=== PATIENT | male | born 1945 | race Caucasian/White ===

== ENCOUNTER → 2016-10-20 | Outpatient (CLI) | payer BC ==
[~2016-10-20] MED LIST: ACET-749 PO; ASPI-428 PO; ATOR-24 PO; BUPR-267 PO; CEPH500C2 PO; CLOP1TAB15 PO; CMD10 PO; FINA5TAB4 PO; FLM4 PO; GADAVIST IV PRN; GLC/500 PO; HYDR25TA4 PO; KFL/250 PO; MULTTAB58 PO; NIAC250C2; NTRC PO; NUTR-218 PO; SULF800T23 PO; WARF10TA4 PO
[2016-10-20 15:18] LABS: ISTAT CREATININE 1.1 mg/dl (0.6-1.3); ISTAT HEMOGLOBIN 13.9 g/dl (14.0-18.0); ISTAT IONIZED CALCIUM 1.22 mmol/l (1.12-1.32)
--- NOTE | 2016-10-21 15:33 | DIAGNOSTIC IMAGING REPORT ---
MRI OF THE RIGHT FOOT WITH AND WITHOUT CONTRAST CLINICAL HISTORY: Right first toe infection. Evaluate for osteomyelitis. COMPARISON STUDY: MRI of the right foot May 05, 2016. TECHNIQUE: 1.5 Alejandra magnet and dedicated coil, multiplanar, multiecho imaging of the right foot was performed pre and postcontrast ministration. Injection of 10.5 cc of Gadavist IV was uneventful. FINDINGS: The tarsometatarsal joints are intact. 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 A marker was placed on the skin at site of wound. There is edema and enhancement within the subcutaneous tissues of the right first toe. This suggests cellulitis. There is mild increased T2 signal within the distal phalanx of the right first toe which is slightly increased since MRI of May 05, 2016. However, T1 signal is preserved. There is no fluid collection to suggest an abscess. No fracture is identified. There is no mass or fluid collection within the right foot. IMPRESSION: 1. Mild increased T2 signal within the distal phalanx of the right first toe, slightly increased since MRI of May 05, 2016. However, marrow signal on the T1-weighted sequence is preserved and therefore, there is no convincing MR evidence of osteomyelitis. The findings could reflect osteitis. 2. Edema and enhancement of the subcutaneous tissues of the right first toe suggestive of cellulitis. No abscess. Electronically signed by: Tyrone Navarro M.D. 10/21/2016 3:31 PM Dictated Date/Time: 10/20/2016 4:33 PM
== END | disposition home or self-care (01) ==
LOC: C.MRI 14:18
PROVIDERS: ATTEND Emergency Medicine
DX: E11.621 Type 2 diabetes mellitus with foot ulcer (principal); L97.519 Non-pressure chronic ulcer of other part of right foot with unspecified severity; R93.8 Abnormal findings on diagnostic imaging of other specified body structures

== ENCOUNTER → 2016-10-25 | Outpatient (CLI) | payer BC ==
[~2016-10-25] MED LIST changes: -GADAVIST IV PRN
[2016-10-25 13:29] LABS: BASO % 0.2 %; BASO ABS # 0.01 K/uL (0-0.2); COMPLETE YES; EOS % 1.9 %; HEMATOCRIT 42.6 % (42-52); IG% 0.2 %; LYMPH % 23.6 %; LYMPH ABS # 1.24 K/uL (1.2-3.4); MEAN CELL VOLUME 92.4 fL (80-100); MEAN CORPUSCULAR HEMOGLOBIN 30.8 pg (25-34); MEAN CORPUSCULAR HGB CONC 33.3 g/dl (32-36); MEAN PLATELET VOLUME 10.5 fL (7.4-10.4); MONO % 4.8 %; NEUT % 69.3 %; PLATELET COUNT 150 K/uL (130-400); RED BLOOD COUNT 4.61 M/uL (4.7-6.1); WHITE BLOOD COUNT 5.25 K/uL (4.8-10.8)
[2016-10-25 13:47] LABS: ESTIMATED AVERAGE GLUCOSE 134 mg/dl; HA1C FLAG Normal (Normal)
[2016-10-25 14:58] LABS: BLOOD UREA NITROGEN 23 mg/dl (7-18); BUN/CREATININE RATIO 18.9 (10-20); CALCIUM 8.8 mg/dl (8.5-10.1); CARBON DIOXIDE 26 mmol/L (21-32); CHLORIDE 103 mmol/L (98-107); GLUCOSE 162 mg/dl (70-99); POTASSIUM 3.9 mmol/L (3.5-5.1); SODIUM 138 mmol/L (136-145)
--- NOTE | 2016-10-30 13:16 | CODING QUERY MEDICAL NECESSITY ---
SUPPORTING DIAGNOSIS NEEDED A supporting diagnosis is required for the test/procedure performed on this patient in order for us to be reimbursed by the patient's insurance. Please provide a supporting diagnosis for the following test/procedure listed below next to the test name along with your signature. *If there is no additional diagnosis for this patient that would support the following test/procedure please document that below next to the test/procedure. Test(s)/Procedure(s) that require a supporting diagnosis: DOS 10/25 * Vitamin D DIAGNOSIS: * Vitamin B12 DIAGNOSIS: Provider Signature: Date: Thank you Radha Foster Health Information Management Once completed, please kindly fax back to [phone] For questions please call [phone]
== END | disposition home or self-care (01) ==
LOC: C.LABBC 11:00
PROVIDERS: ATTEND Internal Medicine Geriatric Medicine
DX: R73.9 Hyperglycemia, unspecified (principal); I10 Essential (primary) hypertension; G47.30 Sleep apnea, unspecified; C44.41 Basal cell carcinoma of skin of scalp and neck; G62.9 Polyneuropathy, unspecified

== ENCOUNTER → 2017-02-26 | Outpatient (CLI) | payer BC ==
[~2017-02-26] MED LIST changes: -ASPI-428 PO; -CEPH500C2 PO; -CLOP1TAB15 PO; -KFL/250 PO; -SULF800T23 PO
--- NOTE | 2017-02-26 13:43 | DIAGNOSTIC IMAGING REPORT ---
CT SCAN OF THE CHEST WITHOUT IV CONTRAST CLINICAL HISTORY: Pulmonary nodule follow-up. COMPARISON STUDY: Chest CT dated 11/20/2011. PET/CT dated 04/28/2015. TECHNIQUE: CT scan of the thorax was performed from the thoracic inlet to the upper abdomen. Images are reviewed in the axial, sagittal, and coronal planes. IV contrast was not administered for this examination. A dose lowering technique was utilized adhering to the principles of ALARA. CT DOSE: 621.03 mGycm FINDINGS: Thyroid: Imaged portions of the thyroid gland are normal in size and attenuation. There is a 1.2 cm low-attenuation nodule in the left thyroid lobe. Thoracic aorta: There is mild atherosclerotic calcification of the thoracic aorta, which is normal in caliber and demonstrates standard 3-vessel arch anatomy. Heart: The heart is mildly enlarged and without pericardial effusion. The coronary arteries are calcified. The pulmonary trunk is normal in caliber. Lungs and pleural spaces: There are trace pleural effusions. There is no airspace consolidation identified typical for pneumonia. A 5 mm right lower lobe pulmonary nodule seen image #175 is unchanged from 11/20/2011 and is of doubtful significance. There is an enlarging pulmonary nodule at the medial left lung base which measures 1.6 x 1.4 cm as seen on image #240. This has significantly increased in size from 2012 when it measured up to 1.1 cm, and has also increased in size from 2015 and measured 1.3 cm. The trachea and central airways are clear. Mediastinum: There is no mediastinal lymphadenopathy. Mine: Not well assessed without IV contrast. Axillae: There is no axillary lymphadenopathy. Upper abdomen: There is a small hiatal hernia. The spleen is mildly enlarged measuring 13.5 cm in length. Scattered diverticula are noted in the partially imaged left colon. Skeletal structures: The skeletal structures are osteopenic. Mild degenerative change is seen throughout the thoracic spine. No lytic or blastic bony lesions are seen. IMPRESSION: 1. There is a 1.6 cm pulmonary nodule at the left lung base. This has progressively increased in size over serial examinations dating back to 2011 when it measured up to 1.1 cm. This was not demonstrably FDG avid by PET in 2014, and the appearance is concerning for a low-grade neoplasm such as carcinoid tumor. Surgical consultation is advised. 2. A 5 mm right lower lobe pulmonary nodule is unchanged dating back to 2011 and is of doubtful significance. 3. There are trace pleural effusions. No airspace consolidation is seen typical for pneumonia. 4. Mild cardiomegaly. 5. Mild splenomegaly. 6. There is a 1.2 cm low-attenuation nodule in the left thyroid lobe. Follow-up with a nonemergent thyroid ultrasound is recommended for further assessment. 7. Additional findings as above. Electronically signed by: Yosi Butcher M.D. 02/26/2017 1:42 PM Dictated Date/Time: 02/26/2017 1:32 PM
== END | disposition home or self-care (01) ==
LOC: C.CTS 12:43
PROVIDERS: ATTEND Internal Medicine Pulmonary Disease
DX: R91.1 Solitary pulmonary nodule (principal)

== ENCOUNTER → 2017-04-02 | Outpatient (CLI) | payer BC ==
[2017-04-02 17:14] LABS: BASO % 0.1 %; BASO ABS # 0.01 K/uL (0-0.2); COMPLETE YES; EOS % 0.6 %; HEMATOCRIT 40.8 % (42-52); IG% 0.1 %; LYMPH % 16.8 %; LYMPH ABS # 1.34 K/uL (1.2-3.4); MEAN CELL VOLUME 90.9 fL (80-100); MEAN CORPUSCULAR HEMOGLOBIN 30.3 pg (25-34); MEAN CORPUSCULAR HGB CONC 33.3 g/dl (32-36); MEAN PLATELET VOLUME 10.2 fL (7.4-10.4); MONO % 5.4 %; PLATELET COUNT 150 K/uL (130-400); RED BLOOD COUNT 4.49 M/uL (4.7-6.1); WHITE BLOOD COUNT 7.99 K/uL (4.8-10.8)
[2017-04-02 17:26] LABS: ALT/SGPT 45 U/L (12-78); AST/SGOT 22 U/L (15-37); BLOOD UREA NITROGEN 27 mg/dl (7-18); BUN/CREATININE RATIO 27.1 (10-20); CALCIUM 9.1 mg/dl (8.5-10.1); CARBON DIOXIDE 27 mmol/L (21-32); CHLORIDE 108 mmol/L (98-107); CHOLESTEROL 112 mg/dl (0-200); GLUCOSE 159 mg/dl (70-99); POTASSIUM 3.8 mmol/L (3.5-5.1); SODIUM 141 mmol/L (136-145); TRIGLYCERIDES 142 mg/dl (0-150); VERY LOW DENSITY LIPOPROT CALC 28 mg/dl
[2017-04-02 17:35] LABS: ALB/GLOB RATIO 1.2 (0.9-2); ALKALINE PHOSPHATASE 109 U/L (45-117); CHOLESTEROL/HDL RATIO 2.7; HDL CHOLESTEROL 41 mg/dl; LDL CHOLESTEROL CALCULATED 43 mg/dl
[2017-04-03 05:55] LABS: ESTIMATED AVERAGE GLUCOSE 137 mg/dl; HA1C FLAG Normal (Normal)
== END | disposition home or self-care (01) ==
LOC: C.LABBC 12:29
PROVIDERS: ATTEND Internal Medicine Interventional Cardiology
DX: R73.9 Hyperglycemia, unspecified (principal); I10 Essential (primary) hypertension; E78.5 Hyperlipidemia, unspecified; L97.509 Non-pressure chronic ulcer of other part of unspecified foot with unspecified severity

== ENCOUNTER 2017-09-02 19:32 | Emergency (ER) | payer BC ==
[~2017-09-02] VITALS: Ht 172.7 cm; Wt 111.5 kg
[~2017-09-02 19:32] MED LIST changes: -ACET-749 PO; +ASPI-428 PO; +CLOP1TAB15 PO; -HYDR25TA4 PO; -MULTTAB58 PO; +[UNRECOGNIZED DRUG - OTHER] PO
[2017-09-02 19:36] VITALS: Ht 172.7 cm; Wt 111.5 kg
[2017-09-02] MEDS ORDERED: ONDANSETRON INJ 2 MG/ML 2 ML VIAL IV STA (20:00)
[2017-09-02 20:11] LABS: EOS % 1.3 %; EOS ABS # 0.08 K/uL (0-0.5); HEMATOCRIT 42.8 % (42-52); HEMOGLOBIN 14.7 g/dL (14.0-18.0); IG# 0.01 K/uL (0.00-0.02); LYMPH ABS # 0.25 K/uL (1.2-3.4); MEAN CELL VOLUME 88.6 fL (80-100); MEAN CORPUSCULAR HEMOGLOBIN 30.4 pg (25-34); MEAN CORPUSCULAR HGB CONC 34.3 g/dl (32-36); MONO % 5.2 %; MONO ABS # 0.32 K/uL (0.11-0.59); NEUT % 89.3 %; NEUT ABS # 5.55 K/uL (1.4-6.5); PLATELET COUNT 104 K/uL (130-400); RED CELL DISTRIBUTION WIDTH CV 13.2 % (11.5-14.5); RED CELL DISTRIBUTION WIDTH SD 42.9 fL (36.4-46.3); WHITE BLOOD COUNT 6.21 K/uL (4.8-10.8)
[2017-09-02 20:21] LABS: ALT/SGPT 61 U/L (12-78); BLOOD UREA NITROGEN 23 mg/dl (7-18); CALCIUM 8.4 mg/dl (8.5-10.1); CARBON DIOXIDE 28 mmol/L (21-32); CREATININE 1.09 mg/dl (0.60-1.40); GLUCOSE 127 mg/dl (70-99); LIPASE 160 U/L (73-393); POTASSIUM 4.2 mmol/L (3.5-5.1); SODIUM 138 mmol/L (136-145)
[2017-09-02 20:23] LABS: INR 2.9 (0.9-1.1); PTT PATIENT 33.8 SECONDS (21.0-31.0)
[2017-09-02 20:26] LABS: ALKALINE PHOSPHATASE 107 U/L (45-117); AST/SGOT 30 U/L (15-37); TOTAL PROTEIN 6.8 gm/dl (6.4-8.2)
[2017-09-02] MEDS ORDERED: WLLSR150 PO (20:40)
[2017-09-02] MEDS ORDERED: TAMS0.4C38 PO (20:40)
[2017-09-02] MEDS ORDERED: LISI-461 PO (20:40)
[2017-09-02] MEDS ORDERED: METF500T5 PO (20:40)
[2017-09-02] MEDS ORDERED: HOUR ENERGY PO (20:40)
[2017-09-02] MEDS ORDERED: WARF-281 PO (20:40)
[2017-09-02] MEDS ORDERED: WARF4TAB43 PO ×2 (20:40)
--- NOTE | 2017-09-02 21:05 | DIAGNOSTIC IMAGING REPORT ---
PA CHEST RADIOGRAPH AND UPRIGHT AND SUPINE AP RADIOGRAPHS OF THE ABDOMEN CLINICAL HISTORY: Nausea, diarrhea and abdominal bloating. Shortness of breath. COMPARISON STUDY: CT of the abdomen and pelvis July 22, [address] of the chest February 26, 2017. FINDINGS: Lung volumes are normal. There is no pneumothorax or pleural effusion. There is no consolidation to suggest pneumonia. There is no evidence for pulmonary edema. Mild cardiomegaly is noted. Tortuosity of the descending thoracic aorta is again noted. There is no free air. A vascular stent projects over the left hemipelvis. The bowel gas pattern is normal. IMPRESSION: 1. No free air or evidence of bowel obstruction. 2. No acute cardiopulmonary findings. Electronically signed by: Tyrone Navarro M.D. 09/02/2017 9:04 PM Dictated Date/Time: 09/02/2017 8:54 PM
[2017-09-02 21:20] LABS: INFLUENZA A PCR Neg for Influ A (NEG); INFLUENZA B PCR Neg for Influ B (NEG)
[2017-09-02] MEDS ORDERED: ACETAMINOPHEN 500 MG TAB PO STA (22:11)
[2017-09-02] MEDS ORDERED: MULTTAB58 PO (22:34)
[2017-09-02] MEDS ORDERED: HYDR25TA4 PO (22:34)
[2017-09-02] MEDS ORDERED: ACET-749 PO (22:34)
--- NOTE | 2017-09-02 22:43 | DIAGNOSTIC IMAGING REPORT ---
CT OF THE HEAD WITHOUT CONTRAST CLINICAL HISTORY: Headache. Anticoagulation. COMPARISON STUDY: No previous studies for comparison. CT DOSE: 614.27 mGy.cm TECHNIQUE: Helical axial images of the head were obtained without IV contrast. Automated exposure control was utilized for the study. A dose lowering technique was utilized adhering to the principles of ALARA. FINDINGS: No acute intracranial hemorrhage, midline shift or mass effect is present. Mild ventricular dilatation is likely due to atrophy. The basilar cisterns are patent. There are no extra-axial collections. White matter hypodensity suggests small vessel disease. There are no findings to suggest acute dural sinus thrombosis or acute territorial infarct. There is wall thickening of the right maxillary sinus. There is mild mucosal thickening of the maxillary sinuses with secretions within the right maxillary sinus. Mastoid air cells are clear. There are no significant calvarial abnormalities. IMPRESSION: 1. No acute intracranial findings. 2. Mild sinus mucosal thickening with secretions within the right maxillary sinus. No air-fluid levels. Electronically signed by: Tyrone Navarro M.D. 09/02/2017 10:41 PM Dictated Date/Time: 09/02/2017 10:37 PM
[2017-09-03 00:19] VITALS: BP 131/75; PULSE 76; TEMP 37.2; O2SAT 96
[2017-09-03] MEDS ORDERED: AMOX875T PO (00:21)
[2017-09-03] MEDS ORDERED: ONDANSETRON HOME PACK 4MG OD TAB PO ONE (00:30)
[2017-09-03] MEDS ORDERED: AMOXICIL/CLAVU 875MG HOME PACK PO ONE (00:30)
--- NOTE | 2017-09-03 00:33 | EMERGENCY ROOM VISIT NOTE ---
History Report prepared by Nely: Doroteo Best Under the Supervision of: Dr. Hang Titus M.D. First contact with patient: 19:50 Chief Complaint: NAUSEA Stated Complaint: NAUSEA,HEAVY BREATHING,CHILLS Nursing Triage Summary: Patient states "I just feel sick overall and nauseous. It's making my breathing heavier than usual." History of Present Illness The patient is a 71 year old male who presents to the Emergency Room with complaints of worsening nausea starting this morning. He additionally notes that he is having some abdominal bloating, and he is breathing more rapidly. The patient states that he was not able to eat dinner due to his lack of appetite, though he ate lunch, and he states that he never vomited. He denies any abdominal pain, shortness of breath, fever, cough, black stools, bloody stools, and chest pain. The patient states that he had a cold earlier in the week, though it has been better, and he states that he did not do anything unusual yesterday. He states that he had a bowel movement 6 hours ago, and he states that it was "explosive", though he has been having regular bowel movements otherwise. The patient states that he has a history of a stent in his heart and left leg after having shortness of breath, leg swelling, and weakness , and he was shown to have a low ejection fraction on echocardiogram. He also states that he has chronic right leg swelling, though it has been better than usual. It is half the size it used to be. He is on Coumadin for history of DVT. The patient was seen at his doctor this week, and they stated that his heart was fine. He has not had any abdominal surgeries. Source of History: patient Onset: this morning Position: other (global) Quality: other (nausea) Timing: worsening Associated Symptoms: No fevers, No cough, No chest pain, No SOB, No abdominal pain Note: Associated symptoms: Abdominal bloating and breathing faster. Review of Systems See HPI for pertinent positives & negatives. A total of 10 systems reviewed and were otherwise negative. Past Medical & Surgical Medical Problems: (1) Diabetic peripheral neuropathy associated with type 2 diabetes mellitus (2) DVT (deep venous thrombosis) (3) Foot deformity (4) History of diabetic ulcer of foot (5) Loss of sensation (6) Pulmonary embolism Family History Heart disease Social History Smoking Status: Never Smoker Drug Use: none Marital Status: Housing Status: lives with significant other Occupation Status: employed Current/Historical Medications Scheduled Amoxicillin & Pot Clavulanate (Augmentin 875-125 mg), 875 MG PO BID Aspirin (Ecotrin Low Strength), 81 MG PO DAILY Atorvastatin (Lipitor), 40 MG PO QPM Bupropion HCl (Bupropion HCl Sr), 150 MG PO BID Clopidogrel (Plavix), 75 MG PO DAILY Finasteride (Proscar), 5 MG PO QPM Lisinopril (Zestril), 10 MG PO QPM Metformin Hcl Er (Glucophage Er), 500 MG PO BID Multiple Vitamin (Multivitamin), 1 TAB PO DAILY Tamsulosin Hcl (Flomax), 0.4 MG PO QPM Warfarin Sodium (Warfarin Sodium), 2 MG PO 3XWK Warfarin Sodium (Warfarin Sodium), 4 MG PO 4XWK Warfarin Sodium (Warfarin Sodium), 10 MG PO QPM [5 Hour Energy], 1-2 EA PO DAILY Scheduled PRN Acetaminophen/Codeine (Tylenol W/Codeine #3), 1 TAB PO BID PRN for Pain Hydrochlorothiazide (Hctz), 25 MG PO DAILY PRN for Fluid Retention Allergies Coded Allergies: No Known Allergies (Verified , 06/09/16) Physical Exam Vital Signs Date Time Temp Pulse Resp B/P (MAP) Pulse Ox O2 Delivery O2 Flow Rate FiO2 09/03/17 00:19 37.2 76 18 131/75 96 Room Air 09/02/17 22:11 78 18 147/93 98 Room Air 09/02/17 21:06 76 18 138/80 98 Room Air 09/02/17 20:26 78 09/02/17 19:36 36.4 84 18 148/83 96 Room Air Physical Exam Constitutional: Vital signs reviewed. Eyes: Pupils are equal round reactive to light. Conjunctiva are noninjected. ENT: Pharynx is clear without erythema or exudate. Mucous membranes are moist. Neck supple without meningeal signs. Respiratory: Clear to auscultation bilaterally. Breath sounds are equal bilaterally. Cardiovascular: Regular rate and rhythm. No rubs or gallops. GI: Soft, nondistended and nontender. Bowel sounds are present. Musculoskeletal: Bilateral non-pitting edema with venous stasis discoloration. Right greater than left. Integumentary: No cyanosis. Neurological: The patient is awake and alert. No focal deficits. Psychiatric: Normal affect. Medical Decision & Procedures ER Provider Diagnostic Interpretation: Radiology results as stated below per my review and the radiologist's interpretation: PA CHEST RADIOGRAPH AND UPRIGHT AND SUPINE AP RADIOGRAPHS OF THE ABDOMEN CLINICAL HISTORY: Nausea, diarrhea and abdominal bloating. Shortness of breath. COMPARISON STUDY: CT of the abdomen and pelvis July 22, [address] of the chest February 26, 2017. FINDINGS: Lung volumes are normal. There is no pneumothorax or pleural effusion. There is no consolidation to suggest pneumonia. There is no evidence for pulmonary edema. Mild cardiomegaly is noted. Tortuosity of the descending thoracic aorta is again noted. There is no free air. A vascular stent projects over the left hemipelvis. The bowel gas pattern is normal. IMPRESSION: 1. No free air or evidence of bowel obstruction. 2. No acute cardiopulmonary findings. Electronically signed by: Tyrone Navarro M.D. 09/02/2017 9:04 PM Dictated Date/Time: 09/02/2017 8:[address] OF THE HEAD WITHOUT CONTRAST CLINICAL HISTORY: Headache. Anticoagulation. COMPARISON STUDY: No previous studies for comparison. CT DOSE: 614.27 mGy.cm TECHNIQUE: Helical axial images of the head were obtained without IV contrast. Automated exposure control was utilized for the study. A dose lowering technique was utilized adhering to the principles of ALARA. FINDINGS: No acute intracranial hemorrhage, midline shift or mass effect is present. Mild ventricular dilatation is likely due to atrophy. The basilar cisterns are patent. There are no extra-axial collections. White matter hypodensity suggests small vessel disease. There are no findings to suggest acute dural sinus thrombosis or acute territorial infarct. There is wall thickening of the right maxillary sinus. There is mild mucosal thickening of the maxillary sinuses with secretions within the right maxillary sinus. Mastoid air cells are clear. There are no significant calvarial abnormalities. IMPRESSION: 1. No acute intracranial findings. 2. Mild sinus mucosal thickening with secretions within the right maxillary sinus. No air-fluid levels. Electronically signed by: Tyrone Navarro M.D. 09/02/2017 10:41 PM Dictated Date/Time: 09/02/2017 10:[address] ABDOMEN & PELVIS With Contrast: Compared to 07/22/15. Fluid in the colon, can be seen with diarrheal disease. Diverticulosis with minimal stranding adjacent to the distal descending colon in the left lower quadrant (image [id number]). Correlate clinically for mild/early diverticulitis. No fluid collection or free air. No evidence of small bowel obstruction. Small hiatal hernia. Mild distal esophageal wall thickening. Mildly distended gallbladder. Prominent mesenteric lymph nodes. Minimal pericardial and pleural effusions. Bibasilar pulmonary nodules, also seen on prior. Additional incidental findings. Radiologist: Oly Viera M.D. Laboratory Results 09/02/17 19:55 Red Blood Count 4.83, Mean Corpuscular Volume 88.6, Mean Corpuscular Hemoglobin 30.4, Mean Corpuscular Hemoglobin Concent 34.3, Mean Platelet Volume 10.0, Neutrophils (%) (Auto) 89.3, Lymphocytes (%) (Auto) 4.0, Monocytes (%) (Auto) 5.2, Eosinophils (%) (Auto) 1.3, Basophils (%) (Auto) 0.0, Neutrophils # (Auto) 5.55, Lymphocytes # (Auto) 0.25, Monocytes # (Auto) 0.32, Eosinophils # (Auto) 0.08, Basophils # (Auto) 0.00 09/02/17 19:55 Test 09/02/17 19:55 09/02/17 20:10 09/02/17 22:10 09/02/17 22:45 White Blood Count 6.21 K/uL (4.8-10.8) Red Blood Count 4.83 M/uL (4.7-6.1) Hemoglobin 14.7 g/dL (14.0-18.0) Hematocrit 42.8 % (42-52) Mean Corpuscular Volume 88.6 fL (80-100) Mean Corpuscular Hemoglobin 30.4 pg (25-34) Mean Corpuscular Hemoglobin Concent 34.3 g/dl (32-36) Platelet Count 104 K/uL (130-400) Mean Platelet Volume 10.0 fL (7.4-10.4) Neutrophils (%) (Auto) 89.3 % Lymphocytes (%) (Auto) 4.0 % Monocytes (%) (Auto) 5.2 % Eosinophils (%) (Auto) 1.3 % Basophils (%) (Auto) 0.0 % Neutrophils # (Auto) 5.55 K/uL (1.4-6.5) Lymphocytes # (Auto) 0.25 K/uL (1.2-3.4) Monocytes # (Auto) 0.32 K/uL (0.11-0.59) Eosinophils # (Auto) 0.08 K/uL (0-0.5) Basophils # (Auto) 0.00 K/uL (0-0.2) RDW Standard Deviation 42.9 fL (36.4-46.3) RDW Coefficient of Variation 13.2 % (11.5-14.5) Immature Granulocyte % (Auto) 0.2 % Immature Granulocyte # (Auto) 0.01 K/uL (0.00-0.02) Prothrombin Time 29.6 SECONDS (9.0-12.0) Prothromb Time International Ratio 2.9 (0.9-1.1) Activated Partial Thromboplast Time 33.8 SECONDS (21.0-31.0) Partial Thromboplastin Ratio 1.3 Anion Gap 6.0 mmol/L (3-11) Est Creatinine Clear Calc Drug Dose 76.4 ml/min Estimated GFR () 79.3 Estimated GFR (Non- 68.4 BUN/Creatinine Ratio 21.3 (10-20) Calcium Level 8.4 mg/dl (8.5-10.1) Total Bilirubin 1.2 mg/dl (0.2-1) Direct Bilirubin 0.3 mg/dl (0-0.2) Aspartate Amino Transf (AST/SGOT) 30 U/L (15-37) Alanine Aminotransferase (ALT/SGPT) 61 U/L (12-78) Alkaline Phosphatase 107 U/L (45-117) Total Protein 6.8 gm/dl (6.4-8.2) Albumin 4.0 gm/dl (3.4-5.0) Lipase 160 U/L (73-393) Influenza Type A (RT-PCR) Neg for Influ A (NEG) Influenza Type B (RT-PCR) Neg for Influ B (NEG) Urine Color YELLOW Urine Appearance CLEAR (CLEAR) Urine pH 7.0 (4.5-7.5) Urine Specific [place] 1.023 (1.000-1.030) Urine Protein NEG (NEG) Urine Glucose (UA) NEG (NEG) Urine Ketones NEG (NEG) Urine Occult Blood NEG (NEG) Urine Nitrite NEG (NEG) Urine Bilirubin NEG (NEG) Urine Urobilinogen NEG (NEG) Urine Leukocyte Esterase NEG (NEG) Troponin I < 0.015 ng/ml (0-0.045) Laboratory results as reviewed by me. 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 ED Course 1950: The patient was evaluated in room A3. A complete history and physical exam was performed. 1999: Zofran 4mg IV 210: I reevaluated the patient, and I recommended getting a CT scan, and he states that he feels less nauseated. 2210: Tylenol 1000mg PO 2342: I reevaluated the patient, and he states that his headache is better. I discussed test results with him. 0019: I discussed CT results with the patient. He will be discharged home. 0030: Zofran ODT 4mg Home Pack PO, Augmentin 875mg Home Pack PO Medical Decision This is a 71-year-old male presents with nausea and abdominal bloating with some occasional rapid breathing. Differential diagnosis includes bowel obstruction, gastritis, partial bowel obstruction, cardiac, metabolic derangement, UTI. I did perform a limited focused review of portions of the patient's old chart on the electronic medical record. The patient has had no recent pertinent visits to this hospital. I did evaluate the patient as noted above. The patient is presenting with abdominal bloating, diarrhea and nausea. He did have some mild rapid breathing but denies any shortness of breath. IV access was established. The patient was placed on a continuous manager account management. I did order and personally review the patient's 12-lead EKG and abdominal/chest x-ray as described above. I did order and review the patient's blood work as noted in the electronic medical record. His white blood cell count is not elevated. He is not anemic. LFTs and lipase are unremarkable. His INR is therapeutic. Urinalysis negative for infection. Flu testing is negative. He did develop a headache here. He was given Tylenol. I did order a CT of the head, abdomen and pelvis. I did review the images myself as well as the radiology report as described above. There is no evidence of intracranial hemorrhage. Abdominal CT shows symptoms consistent with early diverticulitis. I did discuss the test results with the patient. He was given Augmentin and Zofran home packs. He was given a prescription for Augmentin for 10 days. He was advised to follow-up with his doctor this week and to have his INR rechecked due to the effects of Augmentin on his INR. He was discharged in good condition and given return instructions as outlined below. Medication Reconcilliation Current Medication List: was personally reviewed by me Blood Pressure Screening Patient's blood pressure: Elevated blood pressure Blood pressure disposition: Referred to PCP Impression Primary Impression: Diverticulitis Additional Impression: Anticoagulated on Coumadin Scribe Attestation The scribe's documentation has been prepared under my direct and personally reviewed by me in its entirety. I confirm that the note above accurately reflects all work, treatment, procedures, and medical decision making performed by me. Departure Information Dispostion Home / Self-Care Prescriptions Amoxicillin & Pot Clavulanate (Augmentin 875-125 mg) 1 Tab Tab 875 MG PO BID for 10 Days, #20 TAB Prov: Hang Titus M.D. 09/03/17 Referrals Panda Baker M.D. (PCP) Forms HOME CARE DOCUMENTATION FORM, IMPORTANT VISIT INFORMATION Patient Instructions Diverticulitis Buddy, My [facility] Additional Instructions You have been examined and treated today on an emergency basis only. This is not a substitute for, or an effort to provide, complete comprehensive medical care. It is impossible to recognize and treat all injuries or illnesses in a single emergency department visit. It is therefore important that you follow up closely with your physician. Call as soon as possible for an appointment. Return for worsening symptoms or if you develop fever, vomiting, rectal bleeding , chest pain, shortness of breath or any other concerning symptoms. Have your INR rechecked in a week as your antibiotic may increase the effects of your Coumadin. Problem Qualifiers
--- NOTE | 2017-09-03 07:42 | DIAGNOSTIC IMAGING REPORT ---
ABDOMEN AND PELVIS CT WITH ORAL CONTRAST CT DOSE: 1166.39 mGy.cm HISTORY: Acute abdominal bloating with nausea eval for obstruction TECHNIQUE: Multiaxial CT images of the abdomen and pelvis were performed following the use of oral contrast. A dose lowering technique was utilized adhering to the principles of ALARA. COMPARISON STUDY: CT abdomen and pelvis 07/22/2015. FINDINGS: 3 mm pleural-based nodule of the right middle lobe is noted on image 8 series 3. Lobulated 1.6 cm nodule of the left lower lobe has slightly increased in size from comparison, previously 1.4 cm. This nodule may contain central macroscopic fat suggesting possible hamartoma. Unchanged 2 mm nodule of the left lower lobe on image 41 series 3. No pneumatosis or pneumoperitoneum identified. Cardiac chambers are mildly enlarged with coronary arterial disease. Trace pericardial effusion with trace pleural effusions. Evaluation of the solid abdominal organs is limited without the use of contrast. Within the limitations of the study, the liver, spleen, gallbladder, pancreas and adrenal glands are within normal limits. Mild nonspecific bilateral perinephric stranding. No renal calculi or obstructive uropathy. Ureters and urinary bladder are within normal limits. Prostate is mildly enlarged. Atherosclerosis of the aorta without aneurysm. There is a graft noted within the left external iliac vein. Extensive calcification of the bilateral iliac vasculature. Small sliding-type hiatal hernia with mild wall thickening of the distal esophagus. No bowel obstruction. Moderate colonic diverticulosis. No definite evidence of acute diverticulitis however there is minimal stranding noted adjacent to the descending sigmoid colon junction on image 320 of series 3.. Fluid is noted within the cecum. Soft tissues are unremarkable. The bones appear intact. Degenerative changes are seen throughout the spine. No suspicious lytic or blastic bony lesions identified. IMPRESSION: 1. Moderate colonic diverticulosis. Minimal stranding is seen adjacent to the descending sigmoid colon junction without definite evidence of acute diverticulitis. 2. No evidence of bowel obstruction or focal bowel wall thickening. 3. Small sliding-type hiatal hernia with mild wall thickening of the distal esophagus. 4. Bibasilar solid noncalcified pulmonary nodules with mild increase in size of the left lower lobe pulmonary nodule, now measuring 1.6 cm, previously 1.4 cm. This nodule may contain central macroscopic fat suggesting possible hamartoma. 5. Trace pericardial effusion with trace bilateral pleural effusions. Electronically signed by: Jama Oropeza M.D. 09/03/2017 7:40 AM Dictated Date/Time: 09/03/2017 7:30 AM
== END 2017-09-03 00:35 | disposition home or self-care (01) ==
LOC: C.EDB 19:34 → C.EDA 09-03 00:35
DX: K57.92 Diverticulitis of intestine, part unspecified, without perforation or abscess without bleeding (principal); Z86.718 Personal history of other venous thrombosis and embolism; Z86.711 Personal history of pulmonary embolism; E11.40 Type 2 diabetes mellitus with diabetic neuropathy, unspecified; Z82.49 Family history of ischemic heart disease and other diseases of the circulatory system; Z79.82 Long term (current) use of aspirin; Z79.02 Long term (current) use of antithrombotics/antiplatelets; Z79.01 Long term (current) use of anticoagulants; Z79.899 Other long term (current) drug therapy

== ENCOUNTER 2017-09-07 12:54 | Emergency (ER) | payer BC ==
[~2017-09-07] VITALS: Ht 172.7 cm; Wt 109.0 kg
[~2017-09-07 12:54] MED LIST changes: +ACET-749 PO; +AMOX875T PO; -BUPR-267 PO; -CMD10 PO; -FLM4 PO; -GLC/500 PO; +HOUR ENERGY PO; +HYDR25TA4 PO; +LISI-461 PO; +METF500T5 PO; +MULTTAB58 PO; -NIAC250C2; -NTRC PO; -NUTR-218 PO; +TAMS0.4C38 PO; +WARF-281 PO; -WARF10TA4 PO; +WARF4TAB43 PO; +WLLSR150 PO; -[UNRECOGNIZED DRUG - OTHER] PO
[2017-09-07 12:56] VITALS: TEMP 36.5; Ht 172.7 cm; Wt 109.0 kg
[2017-09-07] MEDS ORDERED: SODIUM CHLORIDE 0.9% 1000ML 1,000 ML IV STA (13:10)
--- NOTE | 2017-09-07 13:17 | EMERGENCY ROOM VISIT NOTE ---
History Report prepared by Nely: Kehinde Zimmerman Under the Supervision of: Dr. Anton Long D.O. First contact with patient: 13:05 Chief Complaint: DIARRHEA Stated Complaint: DIARRHEA History of Present Illness The patient is a 71 year old male who presents to the Emergency Room with complaints of persistent diarrhea that began a 3 days ago. The patient was in the Emergency Department on Sunday, 5 days ago and was diagnosed with Diverticulitis that he has had several times in the past. He was sent home with a prescription for Augmenting. Two days later the patient developed the diarrhea. He states he is having 4-8 bouts of diarrhea per day. He called his PCP today who suggested he come to the ED before becoming dehydrated. He is not vomiting. His abdominal pain is resolved. 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 ) Associated Symptoms: No vomiting, No abdominal pain Review of Systems See HPI for pertinent positives & negatives. A total of 10 systems reviewed and were otherwise negative. Past Medical & Surgical Medical Problems: (1) Diabetic peripheral neuropathy associated with type 2 diabetes mellitus (2) DVT (deep venous thrombosis) (3) Foot deformity (4) History of diabetic ulcer of foot (5) Loss of sensation (6) Pulmonary embolism Family History Heart disease Social History Smoking Status: Never Smoker Drug Use: none Marital Status: Housing Status: lives with significant other Occupation Status: employed Current/Historical Medications Scheduled Amoxicillin & Pot Clavulanate (Augmentin 875-125 mg), 875 MG PO BID Aspirin (Ecotrin Low Strength), 81 MG PO DAILY Atorvastatin (Lipitor), 40 MG PO QPM Bupropion HCl (Bupropion HCl Sr), 150 MG PO BID Clopidogrel (Plavix), 75 MG PO DAILY Finasteride (Proscar), 5 MG PO QPM Lisinopril (Zestril), 10 MG PO QPM Metformin Hcl Er (Glucophage Er), 500 MG PO BID Multiple Vitamin (Multivitamin), 1 TAB PO DAILY Tamsulosin Hcl (Flomax), 0.4 MG PO QPM Vancomycin Hcl (Vancomycin), 125 MG PO QID Warfarin Sodium (Warfarin Sodium), 2 MG PO 3XWK Warfarin Sodium (Warfarin Sodium), 4 MG PO 4XWK Warfarin Sodium (Warfarin Sodium), 10 MG PO QPM [5 Hour Energy], 1-2 EA PO DAILY Scheduled PRN Acetaminophen/Codeine (Tylenol W/Codeine #3), 1 TAB PO BID PRN for Pain Hydrochlorothiazide (Hctz), 25 MG PO DAILY PRN for Fluid Retention Allergies Coded Allergies: No Known Allergies (Verified , 09/07/17) Physical Exam Vital Signs Date Time Temp Pulse Resp B/P (MAP) Pulse Ox O2 Delivery O2 Flow Rate FiO2 09/07/17 16:09 56 17 136/83 96 Room Air 09/07/17 14:51 63 19 135/84 96 Room Air 09/07/17 12:56 36.5 67 18 163/91 97 Room Air Physical Exam GENERAL: Patient is awake, alert, and in no acute distress. Patient is resting comfortably and showing no signs of anxiety EYES: The conjunctivae are clear. The pupils are round and reactive. EARS, NOSE, MOUTH AND THROAT: The nose is without any evidence of any deformity. Mucous membranes are moist tongue is midline NECK: The neck is nontender and supple. RESPIRATORY: Normal respiratory effort is noted there is no evidence of wheezing rhonchi or rales CARDIOVASCULAR: Regular rate and rhythm noted there no murmurs rubs or gallops normal S1 normal S2 GASTROINTESTINAL: The abdomen is soft. Bowel sounds are present in all quadrants. Abdomen is nontender MUSCULOSKELETAL/EXTREMITIES: There is no evidence of gross deformity full range of motion is noted in the hips and shoulders. There is Pedal Edema bilaterally. SKIN: There is no obvious evidence of any rash. There are no petechiae, pallor or cyanosis noted. NEUROLOGIC: Patient is awake alert and oriented x3 Medical Decision & Procedures ER Provider Diagnostic Interpretation: Radiology results as stated below per my review and radiologist interpretation: ABDOMEN 2VIEW W/PA CHEST RTN CLINICAL HISTORY: ABDOMINAL PAIN/GI pain COMPARISON STUDY: 09/02/2017 FINDINGS: Mild stable cardiomegaly. Mild chronic fullness of the pulmonary vasculature. No acute infiltrate. Metastatic bone the left pelvic region. Nonobstructive bowel pattern. IMPRESSION: No acute process of the chest or abdomen. The above report was generated using voice recognition software. It may contain grammatical, syntax or spelling errors. Electronically signed by: Kei Soria M.D. 09/07/2017 2:57 PM Dictated Date/Time: 09/07/2017 2:56 PM Laboratory Results 09/07/17 13:25 Red Blood Count 4.40, Mean Corpuscular Volume 88.0, Mean Corpuscular Hemoglobin 30.0, Mean Corpuscular Hemoglobin Concent 34.1, Mean Platelet Volume 10.4, Neutrophils (%) (Auto) 68.3, Lymphocytes (%) (Auto) 18.2, Monocytes (%) (Auto) 10.2, Eosinophils (%) (Auto) 2.7, Basophils (%) (Auto) 0.4, Neutrophils # (Auto ) 3.48, Lymphocytes # (Auto) 0.93, Monocytes # (Auto) 0.52, Eosinophils # (Auto ) 0.14, Basophils # (Auto) 0.02 09/07/17 13:25 Test 09/07/17 13:25 09/07/17 15:10 White Blood Count 5.10 K/uL (4.8-10.8) Red Blood Count 4.40 M/uL (4.7-6.1) Hemoglobin 13.2 g/dL (14.0-18.0) Hematocrit 38.7 % (42-52) Mean Corpuscular Volume 88.0 fL (80-100) Mean Corpuscular Hemoglobin 30.0 pg (25-34) Mean Corpuscular Hemoglobin Concent 34.1 g/dl (32-36) Platelet Count 125 K/uL (130-400) Mean Platelet Volume 10.4 fL (7.4-10.4) Neutrophils (%) (Auto) 68.3 % Lymphocytes (%) (Auto) 18.2 % Monocytes (%) (Auto) 10.2 % Eosinophils (%) (Auto) 2.7 % Basophils (%) (Auto) 0.4 % Neutrophils # (Auto) 3.48 K/uL (1.4-6.5) Lymphocytes # (Auto) 0.93 K/uL (1.2-3.4) Monocytes # (Auto) 0.52 K/uL (0.11-0.59) Eosinophils # (Auto) 0.14 K/uL (0-0.5) Basophils # (Auto) 0.02 K/uL (0-0.2) RDW Standard Deviation 43.3 fL (36.4-46.3) RDW Coefficient of Variation 13.4 % (11.5-14.5) Immature Granulocyte % (Auto) 0.2 % Immature Granulocyte # (Auto) 0.01 K/uL (0.00-0.02) Anion Gap 6.0 mmol/L (3-11) Est Creatinine Clear Calc Drug Dose 90.4 ml/min Estimated GFR () 98.6 Estimated GFR (Non- 85.1 BUN/Creatinine Ratio 20.7 (10-20) Calcium Level 8.6 mg/dl (8.5-10.1) Total Bilirubin 0.7 mg/dl (0.2-1) Direct Bilirubin 0.2 mg/dl (0-0.2) Aspartate Amino Transf (AST/SGOT) 32 U/L (15-37) Alanine Aminotransferase (ALT/SGPT) 47 U/L (12-78) Alkaline Phosphatase 85 U/L (45-117) Total Protein 6.9 gm/dl (6.4-8.2) Albumin 3.3 gm/dl (3.4-5.0) Lipase 256 U/L (73-393) Urine Color DK YELLOW Urine Appearance CLEAR (CLEAR) Urine pH 5.0 (4.5-7.5) Urine Specific [place] 1.028 (1.000-1.030) Urine Protein NEG (NEG) Urine Glucose (UA) NEG (NEG) Urine Ketones NEG (NEG) Urine Occult Blood NEG (NEG) Urine Nitrite NEG (NEG) Urine Bilirubin NEG (NEG) Urine Urobilinogen NEG (NEG) Urine Leukocyte Esterase NEG (NEG) Date/Time Source Procedure Growth Status 09/07/17 15:10 Stool C.difficile Toxin B Gene (PCR) - Final Positive for C. difficile toxin B gene Complete Laboratory results per my review. Medications Administered Medications (Trade) Dose Ordered Sig/Mark Route Start Time Stop Time Status Last Admin Dose Admin Sodium Chloride 1,000 ml @ 999 mls/hr Q1H1M STAT IV 09/07/17 13:10 09/07/17 14:10 DC 09/07/17 13:22 999 MLS/HR ED Course 1308: The patient was evaluated in room A11B. A complete history and physical examination were performed. 1310: Ordered Sodium Chloride 1000 mL @ 999 mL/hr IV. 1638: Ordered Vancomycin HCl 125 mg PO, Raspberry Syrup Cup 1642: Upon reevaluation, the patient is resting. I discussed the results and treatment plan with him. He verbalized agreement of the treatment plan. The patient was discharged home. Medical Decision Prior records/ancillary studies reviewed. Triage Nursing notes reviewed. Differential diagnosis: Etiologies such as appendicitis, diverticulitis, PUD, biliary pathology, UTI, pancreatitis, obstruction, mesenteric ischemia, aortic pathology, infections, inflammatory bowel disease, renal colic, as well as others were entertained. The patient is a 71-year-old male who presented to the emergency department for an evaluation of diarrhea. The patient was recently diagnosed and treated for diverticulitis. He was started on Augmentin. The patient currently takes anticoagulation and because of possible medication interaction the patient was started on Augmentin rather than a quinolone. The patient states that his symptoms are significantly improved and his abdominal exam was not consistent with an acute surgical abdomen. The patient started having loose bowel movements recently and was sent to the emergency department by his primary care physician for IV fluids and other workup. I discussed patient's laboratory and radiographic studies with him. He was treated with IV fluids. He was feeling much better on subsequent reevaluation. The patient was found to have a positive C. difficile and was started on vancomycin orally. I discussed this with the patient. Medication Reconcilliation Current Medication List: was personally reviewed by me Blood Pressure Screening Patient's blood pressure: Elevated blood pressure Blood pressure disposition: Elevated BP felt to be situational Impression Primary Impression: Diarrhea Additional Impression: C. difficile diarrhea Scribe Attestation The scribe's documentation has been prepared under my direction and personally reviewed by me in its entirety. I confirm that the note above accurately reflects all work, treatment, procedures, and medical decision making performed by me. Departure Information Dispostion Home / Self-Care Prescriptions Vancomycin Hcl (Vancomycin) 125 Mg Cap 125 MG PO QID, #56 TABS Prov: Anton Long, DO 09/07/17 Referrals Panda Baker M.D. (PCP) Forms HOME CARE DOCUMENTATION FORM, IMPORTANT VISIT INFORMATION, WORK / SCHOOL INSTRUCTIONS Patient Instructions My [facility] [place] [facility] Additional Instructions Continue to drink plenty clear liquids. Call your family doctor to schedule a follow-up appointment. Problem Qualifiers Primary Impression: Diarrhea Diarrhea type: infectious Qualified Codes: A09 - Infectious gastroenteritis and colitis, unspecified
[2017-09-07 14:01] LABS: BASO % 0.4 %; BASO ABS # 0.02 K/uL (0-0.2); EOS % 2.7 %; EOS ABS # 0.14 K/uL (0-0.5); HEMATOCRIT 38.7 % (42-52); HEMOGLOBIN 13.2 g/dL (14.0-18.0); IG# 0.01 K/uL (0.00-0.02); LYMPH % 18.2 %; LYMPH ABS # 0.93 K/uL (1.2-3.4); MEAN CORPUSCULAR HGB CONC 34.1 g/dl (32-36); MEAN PLATELET VOLUME 10.4 fL (7.4-10.4); MONO % 10.2 %; MONO ABS # 0.52 K/uL (0.11-0.59); NEUT % 68.3 %; NEUT ABS # 3.48 K/uL (1.4-6.5); PLATELET COUNT 125 K/uL (130-400); RED CELL DISTRIBUTION WIDTH CV 13.4 % (11.5-14.5); RED CELL DISTRIBUTION WIDTH SD 43.3 fL (36.4-46.3)
[2017-09-07 14:16] LABS: ALBUMIN 3.3 gm/dl (3.4-5.0); CALCIUM 8.6 mg/dl (8.5-10.1); CREATININE 0.91 mg/dl (0.60-1.40); POTASSIUM 3.5 mmol/L (3.5-5.1)
[2017-09-07 14:19] LABS: TOTAL PROTEIN 6.9 gm/dl (6.4-8.2)
--- NOTE | 2017-09-07 14:58 | DIAGNOSTIC IMAGING REPORT ---
ABDOMEN 2VIEW W/PA CHEST RTN CLINICAL HISTORY: ABDOMINAL PAIN/GI pain COMPARISON STUDY: 09/02/2017 FINDINGS: Mild stable cardiomegaly. Mild chronic fullness of the pulmonary vasculature. No acute infiltrate. Metastatic bone the left pelvic region. Nonobstructive bowel pattern. IMPRESSION: No acute process of the chest or abdomen. The above report was generated using voice recognition software. It may contain grammatical, syntax or spelling errors. Electronically signed by: Kei Soria M.D. 09/07/2017 2:57 PM Dictated Date/Time: 09/07/2017 2:56 PM
[2017-09-07] MEDS ORDERED: VANCOMYCIN HCL 125 MG/2.5ML SOLN PO STA (16:38)
[2017-09-07] MEDS ORDERED: VANC5CAP PO (16:41)
[2017-09-07] MEDS ORDERED: RASPBERRY SYRUP 5 ML UDP PO ONE (16:45)
[2017-09-07 17:25] VITALS: BP 140/78; PULSE 72; O2SAT 97
== END 2017-09-07 17:29 | disposition home or self-care (01) ==
LOC: C.EDB 12:55 → C.EDA 17:29
DX: R19.7 Diarrhea, unspecified (principal); A04.72 Enterocolitis due to Clostridium difficile, not specified as recurrent; Z86.718 Personal history of other venous thrombosis and embolism; Z86.711 Personal history of pulmonary embolism; Z82.49 Family history of ischemic heart disease and other diseases of the circulatory system; Z79.2 Long term (current) use of antibiotics; Z79.82 Long term (current) use of aspirin; Z79.01 Long term (current) use of anticoagulants; Z79.02 Long term (current) use of antithrombotics/antiplatelets; Z79.899 Other long term (current) drug therapy

== ENCOUNTER 2022-01-25 04:19 | Inpatient (IN) ==
[2022-01-25] MEDS ORDERED: ACETAMINOPHEN 1,000 MG/100 ML VIAL IV STA (04:40)
--- NOTE | 2022-01-25 04:48 | Emergency Department Note ---
History of Present Illness General Chief complaint: Weakness Stated complaint: Weakness Time Seen by Provider: 01/25/22 04:28 Source: patient Mode of arrival: EMS Limitations: no limitations History of Present Illness Provider complaint: shortness of breath, sweating This is a 76-year-old male presents emergency department due to concern for shortness of breath and sweating which began this evening lasting approximately 20 minutes. Patient states he does feel improved now although was noted to be febrile on arrival. Patient denies any coming chest pain or abdominal pain. Patient states he has been taking clindamycin for 2 weeks due to a right leg wound and is due to see wound care tomorrow in clinic. Patient denies any other recent illness or sick contact. Patient denies any other change in medications. Patient states he does have a cardiac history and was told he is prone to heart failure. Patient states he has overactive bladder and frequently urinates, he has not noticed a change in the color or odor. States he did recently see his urologist. Patient denies any history of asthma or COPD, no other pulmonary problems. Patient does take a blood thinner daily due to prior history of DVT. Pt seen during a time of high acuity and national emergency pandemic while wearing PPE. Home Medications Medication Instructions Recorded Confirmed Type multivitamin 1 tab PO QAM #0 tabs 10/09/12/14/21 History psyllium husk 3.4 gram/5.4 gram 1 tbs PO HS 04/28/19 12/14/21 History oral powder (Metamucil) rivaroxaban 20 mg tablet (Xarelto) 20 mg PO HS 06/03/19 12/14/21 History lisinopril 10 mg tablet 10 mg PO BID #0 tabs 09/09/19 12/14/21 History atorvastatin 40 mg tablet 40 mg PO DAILY 05/30/21 12/14/21 History blood-glucose meter (Accu-Chek #1 ea 05/31/21 12/14/21 Rx Sirena Plus Meter) cholecalciferol (vitamin D3) 25 3,000 unit PO HS PRN 06/07/21 12/14/21 History mcg (1,000 unit) capsule lactobacillus combination no.8 3 See Rx Instructions PO BID 06/07/21 12/14/21 History billion cell capsule (Adult Probiotic) tamsulosin 0.4 mg capsule 0.4 mg PO HS #90 caps 06/28/21 12/14/21 Rx metformin 500 mg tablet 500 mg PO BID #180 tabs 07/13/21 12/14/21 Rx bupropion HCl 150 mg 24 hr tablet, 300 mg PO HS 08/30/21 12/14/21 History extended release insulin glargine 100 unit/mL (3 18 unit (0.18 mL) subcut QAM #15 mL 08/30/21 12/14/21 Rx mL) subcutaneous pen lancets 28 gauge (Acti-Jose #100 ea 10/12/21 12/14/21 Rx Lancets) blood sugar diagnostic (Accu-Chek #100 ea 10/14/21 12/14/21 Rx Sirena Plus test strp) dulaglutide 1.5 mg/0.5 mL 1.5 mg (0.5 mL) subcut .weekly #2 10/26/21 12/14/21 Rx subcutaneous pen injector mL pen needle, diabetic 32 gauge x #50 ea 10/26/21 12/14/21 Rx 5/32" (BD Ultra-Fine Romelia Pen Needle) finasteride 5 mg tablet 5 mg PO HS #90 tabs 11/30/21 12/14/21 Rx hydrochlorothiazide 25 mg tablet 25 mg PO DAILY Fluid Retention #30 11/30/21 12/14/21 Rx tabs acetaminophen 300 mg-codeine 30 mg 1 tab PO Q12 PRN headache #45 tabs 01/19/22 Rx tablet Allergies Allergy/AdvReac Type Severity Reaction Status Date / Time No Known Allergies Allergy Verified 12/14/21 14:22 Past Med/Surg History Medical History (Updated 01/26/22 @ 11:34 by Bonilla Bond) Aortic atherosclerosis Basal cell carcinoma of skin of face WITH REMOVAL Cardiomyopathy Carotid artery plaque Chronic anticoagulation Chronic venous insufficiency Coronary artery disease Followed by Tyesha MALCOLM Specialist, [facility] Diabetic peripheral neuropathy associated with type 2 diabetes mellitus Diverticulosis DVT (deep venous thrombosis) 1994 > LEGS > UNKNOWN ETIOLOGY > XARELTO Dyslipidemia Enlarged prostate with lower urinary tract symptoms (LUTS) Hypertension Lumbar degenerative disc disease Multiple pulmonary nodules JUST MONITORING RAHUL (obstructive sleep apnea) CPAP Overactive bladder Peripheral arterial disease Personal history of diabetic foot ulcer Systolic heart failure FOLLOWS DR. CHAVIS [facility] [place] Tinnitus Type 2 diabetes mellitus Surgical History H/O vascular surgery STENTS TO BILAT LEGS, UNSURE TOTAL NUMBER [id number] History of cataract surgery History of colonoscopy History of heart artery stent 05/2017 Stent placement > [facility] History of toe surgery 09/19/2019--[place]> LEFT 2ND Hx of hernia repair Hx of knee surgery LEFT > ARTHROSCOPIC [place] teeth extracted Family History Grandmother Diabetes Grandfather (Maternal) Stroke Myocardial infarction Other Hypertension Denies family history of Ovarian cancer Prostate cancer Breast cancer Lung cancer Colorectal cancer Social History Smoking Status: Never smoker Second Hand Exposure: No (as a teen); Hx Alcohol Use: Yes Alcohol type: beer, wine and hard liquor Alcohol Intake Frequency: Monthly or Less Hx Substance Use: No Preferred Language: Czech Communication Ability: Effective Visual Impairment: Limited Hearing Ability: Normal Station Mechanic Required: No Beliefs That Will Affect Care: None marital status: Current Living Situation: Spouse current occupational status: retired How many Children do You have: 3 Feels Safe at Home: Yes Childhood Exposure to Second-Hand Smoke: Yes caffeine: Yes Dental Care, Regularly: Yes Physical Activity Frequency: 5-6 Times per Week Seatbelt Use: always Sunscreen Use: Yes Assistive Devices: None Review of Systems A total of 10 systems reviewed and were otherwise negative All systems reviewed & are unremarkable except as noted in HPI & below Physical Exam Vital Signs Vital Signs - 24 hr 01/25/22 09:00 Respiratory Rate 19 Respiratory Effort / Characteristics Non-Labored Spontaneous Pulse Oximetry 94 Oxygen Delivery Method Room Air GENERAL: alert, unwell appearing, well nourished, no distress, non-toxic, diaphoretic EYE EXAM: normal conjunctiva, PERRL and EOM's grossly intact OROPHARYNX: no exudate, no erythema, lips, buccal mucosa, and tongue normal and mucous membranes are moist NECK: supple, no nuchal rigidity, no adenopathy, non-tender LUNGS: Clear to auscultation. Normal chest wall mechanics, no w/r/r HEART: no murmurs, S1 normal and S2 normal ABDOMEN: abdomen soft, non-tender, normo-active bowel sounds, no masses, no rebound or guarding. BACK: Back is symmetrical on inspection and there is no deformity, no midline tenderness, no CVA tenderness. SKIN: no rashes and no bruising UPPER EXTREMITIES: upper extremities are grossly normal. FROM, nml pulses b/l. LOWER EXTREMITIES: Trace b/l pitting edema. FROM, nml pulses b/l. Ulcerative lesion noted along the anteromedial aspect of the distal right lower extremity. Mild surrounding erythema, no increased warmth, no drainage or discharge from the wound. Compartments soft. NEURO EXAM: Normal sensorium, cranial nerves II-XII grossly intact, normal spe ech, no gross weakness of arms, no gross weakness of legs. Gross sensation intact. Course Course 644: Patient updated on results, appears improved compared to initial evaluation as he is far less diaphoretic and able to provide more details regarding recent history. Patient underwent cystoscopy in the office with urology, Dr. Savage on Sunday. He states he has had some mild dysuria since that event. Administered Medications Acetaminophen (Acetaminophen 325 Mg Tab) 650 mg PO Q4H PRN PRN Reason: pain/fever Stop: 02/24/22 09:04 Last Admin: 01/25/22 18:42 Dose: 650 mg Documented By: SHAWN Atorvastatin Calcium (Atorvastatin 40 Mg Tab) 40 mg PO DAILY ADRIANNA Stop: 02/25/22 08:59 Last Admin: 01/26/22 08:19 Dose: 40 mg Documented By: AUGUSTINE Bupropion HCl (Bupropion Xl 300 Mg Tabcr) 300 mg PO HS ADRIANNA Stop: 02/24/22 20:59 Last Admin: 01/26/22 20:36 Dose: 300 mg Documented By: Admin: 01/25/22 21:28 Dose: 300 mg Documented By: REGINALDO Finasteride (Finasteride 5 Mg Tab) 5 mg PO HS ADRIANNA Stop: 02/24/22 20:59 Last Admin: 01/26/22 20:35 Dose: 5 mg Documented By: Admin: 01/25/22 21:28 Dose: 5 mg Documented By: REGINALDO Hydrochlorothiazide (Hydrochlorothiazide 25 Mg Tab) 25 mg PO DAILY ADRIANNA Stop: 02/25/22 08:59 Last Admin: 01/26/22 08:19 Dose: 25 mg Documented By: AUGUSTINE Cefepime HCl 2,000 mg/ Syringe 20 mls @ 5 mls/min IV Q8H ADRIANNA; Protocol Stop: 02/08/22 17:59 Last Admin: 01/26/22 17:36 Dose: 5 mls/min Documented By: AUGUSTINE Insulin Aspart (Insulin Aspart Per Unit) 0 units SC ACHS ADRIANNA Stop: 02/24/22 11:29 Last Admin: 01/26/22 21:41 Dose: Not Given Documented By: REGINALDO Co-signed By: OLE Admin: 01/26/22 18:01 Dose: 4 units Documented By: AUGUSTINE Co-signed By: DORIE Admin: 01/26/22 13:34 Dose: 2 units Documented By: AUGUSTINE Co-signed By: ADAM Admin: 01/26/22 09:30 Dose: 5 units Documented By: AUGUSTINE Co-signed By: DORIE Admin: 01/25/22 21:25 Dose: 1 units Documented By: REGINALDO Co-signed By: OLE Admin: 01/25/22 18:22 Dose: Not Given Documented By: Admin: 01/25/22 13:13 Dose: 2 units Documented By: SHAWN Co-signed By: KANDICE Insulin Glargine (Lantus Per Unit Charge) 10 units SQ QAM [facility] Stop: 02/25/22 08:59 Last Admin: 01/26/22 09:30 Dose: 10 units Documented By: AUGUSTINE Co-signed By: DORIE Lactobacillus Acidophilus (Advanced Probiotic 1250 Mg Capsule) 2 cap PO DAILY [facility] Stop: 02/24/22 17:59 Last Admin: 01/26/22 08:20 Dose: 2 cap Documented By: Admin: 01/25/22 18:22 Dose: Not Given Documented By: SHAWN Lisinopril (Lisinopril 10 Mg Tab) 10 mg PO BID ADRIANNA Stop: 02/24/22 20:59 Last Admin: 01/26/22 20:36 Dose: 10 mg Documented By: Admin: 01/26/22 08:19 Dose: 10 mg Documented By: Admin: 01/25/22 21:28 Dose: 10 mg Documented By: REGINALDO Multivitamins (Multivitamin Tab) 1 tab PO QAM [facility] Stop: 02/25/22 08:59 Last Admin: 01/26/22 08:19 Dose: 1 tab Documented By: AUGUSTINE Polyethylene Glycol (Polyethylene (Miralax) 17 Gm Pack) 17 gm PO DAILY ADRIANNA Stop: 02/24/22 15:14 Last Admin: 01/26/22 08:20 Dose: 17 gm Documented By: Admin: 01/25/22 15:32 Dose: 17 gm Documented By: SHAWN Rivaroxaban (Rivaroxaban 20 Mg Tab) 20 mg PO HS ADRIANNA Stop: 02/24/22 22:09 Last Admin: 01/26/22 20:35 Dose: 20 mg Documented By: Admin: 01/25/22 22:48 Dose: 20 mg Documented By: REGINALDO Vitamin D (Cholecalciferol 1,000 Units 25 Mcg Tab) 3,000 units PO HS ADRIANNA Stop: 02/24/22 20:59 Last Admin: 01/26/22 20:34 Dose: 3,000 units Documented By: Admin: 01/25/22 21:28 Dose: 3,000 units Documented By: REGINALDO Discontinued Medications Acetaminophen (Ofirmev) 1,000 mg in 100 mls @ 400 mls/hr IV NOW STA Stop: 01/25/22 04:54 Last Infusion: 01/25/22 05:05 Dose: 0 mls/hr Documented By: Admin: 01/25/22 04:50 Dose: 400 mls/hr Documented By: APOLINAR Sodium Chloride (Nss 1000ml) 1,000 mls @ 125 mls/hr IV .Q8H ADRIANNA Stop: 01/25/22 21:29 Last Infusion: 01/25/22 22:48 Dose: 0 mls/hr Documented By: Admin: 01/25/22 15:31 Dose: 125 mls/hr Documented By: Infusion: 01/25/22 13:35 Dose: 125 mls/hr Documented By: Admin: 01/25/22 05:35 Dose: 125 mls/hr Documented By: GABRIELE Cefepime HCl (Maxipime) 2,000 mg in 20 mls @ 5 mls/min IV NOW STA; Protocol Stop: 01/25/22 05:37 Last Admin: 01/25/22 05:36 Dose: 5 mls/min Documented By: GABRIELE Cefepime HCl 2,000 mg/ Syringe 20 mls @ 5 mls/min IV Q12 ADRIANNA; Protocol Stop: 02/04/22 20:59 Last Admin: 01/26/22 10:06 Dose: 5 mls/min Documented By: Admin: 07/20/22 21:39 Dose: 5 mls/min Documented By: REGINALDO Insulin Glargine (Lantus Per Unit Charge) 10 units SQ NOW ONE Stop: 01/25/22 12:01 Last Admin: 01/25/22 13:07 Dose: 10 units Documented By: SHAWN Co-signed By: KANDICE Insulin Glargine (Lantus Per Unit Charge) 0 units SQ HS ONE; Protocol Stop: 01/25/22 21:01 Last Admin: 01/25/22 21:21 Dose: Not Given Documented By: REGINALDO Medical Decision Making Differential Diagnosis Differential diagnoses includes but is not limited to pneumonia, bronchitis, 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 Home Medications Current Medication List: was personally reviewed by me Laboratory Data Attestation: I reviewed the patient's lab results. Result diagrams: 01/26/22 09:13 01/26/22 09:13 Lab Results 01/25/22 01/25/22 01/25/22 Range/Units 04:30 04:30 04:30 WBC 6.79 (4.8-10.8) K/ul RBC 4.42 L (4.63-6.08) M/uL Hgb 13.8 L (14.0-18.0) g/dl Hct 40.1 (40.1-51.0) % MCV 90.7 (80.0-100.0) fL MCH 31.2 (25.0-34.0) pg MCHC 34.4 (32.0-36.0) g/dL RDW Std Deviation 40.5 (36.4-46.3) fL RDW Coeff of Simona 12.3 (11.5-14.5) % Plt Count 118 L (130-400) K/uL MPV 10.1 (9.4-12.4) fL Immature Gran % (Auto) 0.3 % Neut % (Auto) 95.7 % Lymph % (Auto) 3.2 % [place] % (Auto) 0.6 % Eos % (Auto) 0.1 % Baso % (Auto) 0.1 % Neut # (Auto) 6.49 (1.4-6.5) K/uL Lymph # (Auto) 0.22 L (1.2-3.4) K/uL [place] # (Auto) 0.04 L (0.24-0.82) K/uL Eos # (Auto) 0.01 (0-0.50) K/uL Baso # (Auto) 0.01 (0-0.2) K/uL Immature Gran # (Auto) 0.02 (0.00-0.02) K/uL Platelet Estimate Decreased L (Normal) PT 12.8 H (9.0-12.0) Seconds INR 1.2 H (0.9-1.1) Sodium 139 (136-145) mmol/L Potassium 3.8 (3.5-5.1) mmol/L Chloride 104 (98-107) mmol/L Carbon Dioxide 27 (21-32) mmol/L Anion Gap 8 (3-11) BUN 31 H (6-23) mg/dl Creatinine 0.99 (0.6-1.4) mg/dl Est Cr Clr Drug Dosing 76.3 ml/min Est GFR ( Amer) 86.0 ml/min Est GFR (Non-Af Amer) 74.2 ml/min BUN/Creatinine Ratio 31.3 H (10-20) Glucose 126 H (70-99(Fasting)) mg/dl Lactate (0.4-2.0) mmol/L Calcium 9.1 (8.5-10.1) mg/dl Magnesium 1.7 (1.7-2.4) mg/dl Total Bilirubin 1.3 H (0.2-1.0) mg/dl AST 25 (13-39) U/L ALT 44 (7-52) U/L Alkaline Phosphatase 79 (34-104) U/L Troponin I High Sens 12.9 (0-20) pg/ml Total Protein 6.4 (6.0-8.3) gm/dl Albumin 4.2 (3.4-5.0) gm/dl Globulin 2.2 L (2.5-4.0) gm/dl Albumin/Globulin Ratio 1.9 (0.9-2) Procalcitonin (0-0.5) ng/ml Urine Color Urine Appearance (Clear) Urine pH (4.5-7.5) Ur Specific [place] (1.000-1.030) Urine Protein (Negative) Urine Glucose (UA) (Negative) Urine Ketones (Negative) Urine Blood (Negative) Urine Nitrite (Negative) Urine Bilirubin (Negative) Urine Urobilinogen (Negative) Ur Leukocyte Esterase (Negative) Urine WBC (Auto) (0-5) /hpf Urine RBC (Auto) (0-4) /hpf U Hyaline Cast (Auto) (0-5) /lpf U Epithel Cells (Auto) (0-5) /lpf Urine Bacteria (Auto) (Negative) SARS-CoV-2 (PCR) (Negative) Influenza Type A (PCR) (Neg) Influenza Type B (PCR) (Neg) RSV (RT-PCR) (Neg) P. aeruginosa (PCR) (NotDetected) blaIMP Car res Gene PCR (NotDetected) KPC-Carbap Res Gene PCR (NotDetected) blaNDM Car Res Gene PCR (NotDetected) blaVIM Car Res Gene PCR (NotDetected) CTX-M Gene Resistance (PCR) (NotDetected) Bld Cult ID Panel PCR (NotDetected) 01/25/22 01/25/22 01/25/22 Range/Units 04:30 04:30 04:30 WBC (4.8-10.8) K/ul RBC (4.63-6.08) M/uL Hgb (14.0-18.0) g/dl Hct (40.1-51.0) % MCV (80.0-100.0) fL MCH (25.0-34.0) pg MCHC (32.0-36.0) g/dL RDW Std Deviation (36.4-46.3) fL RDW Coeff of Simona (11.5-14.5) % Plt Count (130-400) K/uL MPV (9.4-12.4) fL Immature Gran % (Auto) % Neut % (Auto) % Lymph % (Auto) % [place] % (Auto) % Eos % (Auto) % Baso % (Auto) % Neut # (Auto) (1.4-6.5) K/uL Lymph # (Auto) (1.2-3.4) K/uL [place] # (Auto) (0.24-0.82) K/uL Eos # (Auto) (0-0.50) K/uL Baso # (Auto) (0-0.2) K/uL Immature Gran # (Auto) (0.00-0.02) K/uL Platelet Estimate (Normal) PT (9.0-12.0) Seconds INR (0.9-1.1) Sodium (136-145) mmol/L Potassium (3.5-5.1) mmol/L Chloride (98-107) mmol/L Carbon Dioxide (21-32) mmol/L Anion Gap (3-11) BUN (6-23) mg/dl Creatinine (0.6-1.4) mg/dl Est Cr Clr Drug Dosing ml/min Est GFR ( Amer) ml/min Est GFR (Non-Af Amer) ml/min BUN/Creatinine Ratio (10-20) Glucose (70-99(Fasting)) mg/dl Lactate (0.4-2.0) mmol/L Calcium (8.5-10.1) mg/dl Magnesium (1.7-2.4) mg/dl Total Bilirubin (0.2-1.0) mg/dl AST (13-39) U/L ALT (7-52) U/L Alkaline Phosphatase (34-104) U/L Troponin I High Sens (0-20) pg/ml Total Protein (6.0-8.3) gm/dl Albumin (3.4-5.0) gm/dl Globulin (2.5-4.0) gm/dl Albumin/Globulin Ratio (0.9-2) Procalcitonin 0.18 (0-0.5) ng/ml Urine Color Urine Appearance (Clear) Urine pH (4.5-7.5) Ur Specific [place] (1.000-1.030) Urine Protein (Negative) Urine Glucose (UA) (Negative) Urine Ketones (Negative) Urine Blood (Negative) Urine Nitrite (Negative) Urine Bilirubin (Negative) Urine Urobilinogen (Negative) Ur Leukocyte Esterase (Negative) Urine WBC (Auto) (0-5) /hpf Urine RBC (Auto) (0-4) /hpf U Hyaline Cast (Auto) (0-5) /lpf U Epithel Cells (Auto) (0-5) /lpf Urine Bacteria (Auto) (Negative) SARS-CoV-2 (PCR) NEGATIVE (Negative) Influenza Type A (PCR) Negative (Neg) Influenza Type B (PCR) Negative (Neg) RSV (RT-PCR) Negative (Neg) P. aeruginosa (PCR) DETECTED A (NotDetected) blaIMP Car res Gene PCR Not Detected (NotDetected) KPC-Carbap Res Gene PCR Not Detected (NotDetected) blaNDM Car Res Gene PCR Not Detected (NotDetected) blaVIM Car Res Gene PCR Not Detected (NotDetected) CTX-M Gene Resistance (PCR) Not Detected (NotDetected) Bld Cult ID Panel PCR See PCR Comment (NotDetected) 01/25/22 01/25/22 Range/Units 05:26 06:40 WBC (4.8-10.8) K/ul RBC (4.63-6.08) M/uL Hgb (14.0-18.0) g/dl Hct (40.1-51.0) % MCV (80.0-100.0) fL MCH (25.0-34.0) pg MCHC (32.0-36.0) g/dL RDW Std Deviation (36.4-46.3) fL RDW Coeff of Simona (11.5-14.5) % Plt Count (130-400) K/uL MPV (9.4-12.4) fL Immature Gran % (Auto) % Neut % (Auto) % Lymph % (Auto) % [place] % (Auto) % Eos % (Auto) % Baso % (Auto) % Neut # (Auto) (1.4-6.5) K/uL Lymph # (Auto) (1.2-3.4) K/uL [place] # (Auto) (0.24-0.82) K/uL Eos # (Auto) (0-0.50) K/uL Baso # (Auto) (0-0.2) K/uL Immature Gran # (Auto) (0.00-0.02) K/uL Platelet Estimate (Normal) PT (9.0-12.0) Seconds INR (0.9-1.1) Sodium (136-145) mmol/L Potassium (3.5-5.1) mmol/L Chloride (98-107) mmol/L Carbon Dioxide (21-32) mmol/L Anion Gap (3-11) BUN (6-23) mg/dl Creatinine (0.6-1.4) mg/dl Est Cr Clr Drug Dosing ml/min Est GFR ( Amer) ml/min Est GFR (Non-Af Amer) ml/min BUN/Creatinine Ratio (10-20) Glucose (70-99(Fasting)) mg/dl Lactate 1.7 (0.4-2.0) mmol/L Calcium (8.5-10.1) mg/dl Magnesium (1.7-2.4) mg/dl Total Bilirubin (0.2-1.0) mg/dl AST (13-39) U/L ALT (7-52) U/L Alkaline Phosphatase (34-104) U/L Troponin I High Sens (0-20) pg/ml Total Protein (6.0-8.3) gm/dl Albumin (3.4-5.0) gm/dl Globulin (2.5-4.0) gm/dl Albumin/Globulin Ratio (0.9-2) Procalcitonin (0-0.5) ng/ml Urine Color Yellow Urine Appearance Clear (Clear) Urine pH 7.0 (4.5-7.5) Ur Specific [place] 1.021 (1.000-1.030) Urine Protein Negative (Negative) Urine Glucose (UA) Negative (Negative) Urine Ketones Negative (Negative) Urine Blood 3+ H (Negative) Urine Nitrite Positive A (Negative) Urine Bilirubin Negative (Negative) Urine Urobilinogen Negative (Negative) Ur Leukocyte Esterase Trace H (Negative) Urine WBC (Auto) 1-5 (0-5) /hpf Urine RBC (Auto) >30 H (0-4) /hpf U Hyaline Cast (Auto) 1-5 (0-5) /lpf U Epithel Cells (Auto) 10-20 H (0-5) /lpf Urine Bacteria (Auto) 4+ H (Negative) SARS-CoV-2 (PCR) (Negative) Influenza Type A (PCR) (Neg) Influenza Type B (PCR) (Neg) RSV (RT-PCR) (Neg) P. aeruginosa (PCR) (NotDetected) blaIMP Car res Gene PCR (NotDetected) KPC-Carbap Res Gene PCR (NotDetected) blaNDM Car Res Gene PCR (NotDetected) blaVIM Car Res Gene PCR (NotDetected) CTX-M Gene Resistance (PCR) (NotDetected) Bld Cult ID Panel PCR (NotDetected) Imaging Data Radiologist's Impression: Chest X-Ray 01/25/22 04:37 XR chest 1V portable CLINICAL HISTORY: SEPSIS TECHNIQUE: Single frontal radiograph of the chest was obtained. Comparison: Comparison is made to chest and abdomen radiographs 09/07/2017 FINDINGS: No lines and tubes are seen. The aorta is tortuous. The remainder of the cardiomediastinal silhouette is unremarkable. The lungs are clear. No evidence of pleural effusion or pneumothorax. IMPRESSION: No acute chest disease. ACT 112: Negative or not required by law. Electronically signed by: Al Amado M.D. 01/25/2022 7:50 AM ECG Data Attestation: I personally reviewed and interpreted this ECG as follows: Indication: + SOB/dyspnea Rate (beats per minute): 109 Rhythm: + normal sinus ECG Intervals/blocks: + Right Bundle branch block and + Normal QT ECG [place]: + Left axis deviation ECG ST segments: + Nonspecific ST abnormalities MDM Narrative An order was placed for continuous cardiac monitoring. The monitor shows a rate of _92_ with _normal sinus__ rhythm. This is a 76-year-old male presents emergency department due to concern for chills, shaking, and shortness of breath. Patient initially febrile and tachycardic. He was not hypoxic and had no increased work of breathing. Due to concern for evolving sepsis, labs and cultures drawn and sent, chest x-ray performed. Patient given IV cefepime empirically as a precaution. Patient urine ultimately obtained and did appear to be the source. Patient did have recent cystoscopy on Sunday. Patient's heart rate improved with fever control. We discussed all results at bedside. Case discussed with hospitalist for additional evaluation and management. Patient had no abdominal pain or back pain to suggest other obstructive uropathy. Patient given gentle IV fluid hydration. Patient not given a total of 30 mL/KG due to prior history of congestive heart failure. Patient maintained normal blood pressures throughout. Impression & Plan Sepsis, Weakness, Abrasion Discharge Plan Visit Data Chief Complaint: Weakness Stated Complaint: Weakness ED Provider: Ivonne Rousseau Discharge Problem: Sepsis, Weakness, Abrasion Patient Disposition: Admitted As Inpatient Discharge Instructions Interventions: ED Discharge Assessment Last Done: 01/25/22 10:06
[2022-01-25 05:07] LABS: INR 1.2 (0.9-1.1); Prothrombin Time 12.8 Seconds (9.0-12.0)
[2022-01-25 05:19] LABS: Albumin Globulin Ratio 1.9 (0.9-2); Albumin Level 4.2 gm/dl (3.4-5.0); BUN Creatinine Ratio 31.3 (10-20); Bilirubin,Total 1.3 mg/dl (0.2-1.0); Calcium 9.1 mg/dl (8.5-10.1); Creatinine Clr Calc Pharmacy 76.3 ml/min; Est GFR (Non-African American) 74.2 ml/min; Globulin 2.2 gm/dl (2.5-4.0); Magnesium 1.7 mg/dl (1.7-2.4); Potassium 3.8 mmol/L (3.5-5.1); Total Protein 6.4 gm/dl (6.0-8.3)
[2022-01-25 05:20] LABS: Troponin I High Sensitivity 12.9 pg/ml (0-20)
[2022-01-25 05:27] LABS: Basophils # (auto) 0.01 K/uL (0-0.2); Basophils % (auto) 0.1 %; Eosinophils # (auto) 0.01 K/uL (0-0.50); Eosinophils % (auto) 0.1 %; Hematocrit (blood only) 40.1 % (40.1-51.0); Hemoglobin 13.8 g/dl (14.0-18.0); Immature Granulocytes # (auto) 0.02 K/uL (0.00-0.02); Immature Granulocytes % (auto) 0.3 %; Lymphocytes # (auto) 0.22 K/uL (1.2-3.4); Lymphocytes % (auto) 3.2 %; Mean Corpuscular Hemoglobin 31.2 pg (25.0-34.0); Mean Corpuscular Hgb Conc 34.4 g/dL (32.0-36.0); Mean Corpuscular Volume 90.7 fL (80.0-100.0); Mean Platelet Volume 10.1 fL (9.4-12.4); Monocytes # (auto) 0.04 K/uL (0.24-0.82); Monocytes % (auto) 0.6 %; Neutrophils # (auto) 6.49 K/uL (1.4-6.5); Neutrophils % (auto) 95.7 %; Platelet Count 118 K/uL (130-400); Platelet Estimate Decreased (Normal); RDW Coefficient of Variation 12.3 % (11.5-14.5); RDW Standard Deviation 40.5 fL (36.4-46.3); Red Blood Count 4.42 M/uL (4.63-6.08); White Blood Count 6.79 K/ul (4.8-10.8)
[2022-01-25] MEDS ORDERED: CEFEPIME 2,000 MG/20 ML VIAL IV STA (05:34)
[2022-01-25] MEDS: SODIUM CHLORIDE 0.9% 1000ML 1,000 ML IV SCH ×2 (05:35→15:31)
[2022-01-25 05:44] LABS: Influenza A virus by PCR Negative (Neg); Influenza B virus by PCR Negative (Neg); RSV by PCR Negative (Neg); SARS CoV2 RNA(COVID-19) InHosp NEGATIVE (Negative)
[2022-01-25 07:11] LABS: Appearance Urine Clear (Clear); Bacteria Urine Automated 4+ (Negative); Bilirubin Urine Negative (Negative); Blood Urine 3+ (Negative); Color Urine Yellow; Glucose Urine UA Negative (Negative); Ketones Urine Negative (Negative); Leukocyte Esterase Urine Trace (Negative); Nitrite Urine Positive (Negative); Protein Urine Negative (Negative); RBC Urine Automated >30 /hpf (0-4); Specific Gravity Urine 1.021 (1.000-1.030); Urobilinogen Urine Negative (Negative)
--- NOTE | 2022-01-25 07:52 | XRay Report ---
XR chest 1V portable CLINICAL HISTORY: SEPSIS TECHNIQUE: Single frontal radiograph of the chest was obtained. Comparison: Comparison is made to chest and abdomen radiographs 09/07/2017 FINDINGS: No lines and tubes are seen. The aorta is tortuous. The remainder of the cardiomediastinal silhouette is unremarkable. The lungs are clear. No evidence of pleural effusion or pneumothorax. IMPRESSION: No acute chest disease. ACT 112: Negative or not required by law. Electronically signed by: Al Amado M.D. 01/25/2022 7:50 AM
--- NOTE | 2022-01-25 08:41 | History & Physical Report ---
Date of Service January 25, 2022 Assessment & Plan (1) Sepsis: Plan: Appears to be urosepsis. Patient came in tachycardic, with a temperature. Patient had a recent urological procedure. continue IVF for 2 liters Patient also has wound on right leg but this does not appear to show signs of cellulitis or infection. will continue cefepime and monitor (2) Type 2 diabetes mellitus: Plan: glycemic management is consulted (3) Hypertension: Plan: resume home meds (4) Depression: Plan: resume home meds continue buproprion. (5) Systolic heart failure: Plan: Chronic systolic heart failure Appears stable contiue cy inhibitor. Also on HCTZ (6) Diabetes type 2, uncontrolled: Plan: glycemic control consulted resume lisinopril, statin (7) DVT (deep venous thrombosis): Plan: h/o of chronic Dvt IN THE PAST. Patient is on xarelto. History of Present Illness Chief Complaint: FEVER, CHILLS Primary Care Provider: Ramiro Brandon, 76 yo male reports having subjective fever and chills that awoke him in his sleep this AM. Patient states that he had a cystoscopy in the outpatient office 2 days ago and since then has had dysuria. Patient also reports an episode of hematuria this AM. Patient also reports about 2 week ago he had an injury at the pool, where the diving board scratched his leg. He had been on cliondamycin as prescribed by an urgent care. Once in the ED, bloodwork was drawn, and antibiotics given. Patient reports feeling better now. Allergies Allergy/AdvReac Type Severity Reaction Status Date / Time No Known Allergies Allergy Verified 12/14/21 14:22 Home Medications Medication Instructions Recorded Confirmed Type multivitamin 1 tab PO QAM #0 tabs 10/09/13 12/14/21 History psyllium husk 3.4 gram/5.4 gram 1 tbs PO HS 04/28/19 12/14/21 History oral powder (Metamucil) rivaroxaban 20 mg tablet (Xarelto) 20 mg PO HS 06/03/19 12/14/21 History lisinopril 10 mg tablet 10 mg PO BID #0 tabs 09/09/19 12/14/21 History atorvastatin 40 mg tablet 40 mg PO DAILY 05/30/21 12/14/21 History blood-glucose meter (Accu-Chek #1 ea 05/31/21 12/14/21 Rx Sirena Plus Meter) cholecalciferol (vitamin D3) 25 3,000 unit PO HS PRN 06/07/21 12/14/21 History mcg (1,000 unit) capsule lactobacillus combination no.8 3 See Rx Instructions PO BID 06/07/21 12/14/21 History billion cell capsule (Adult Probiotic) tamsulosin 0.4 mg capsule 0.4 mg PO HS #90 caps 06/28/21 12/14/21 Rx metformin 500 mg tablet 500 mg PO BID #180 tabs 07/13/21 12/14/21 Rx bupropion HCl 150 mg 24 hr tablet, 300 mg PO HS 08/30/21 12/14/21 History extended release insulin glargine 100 unit/mL (3 18 unit (0.18 mL) subcut QAM #15 mL 08/30/21 12/14/21 Rx mL) subcutaneous pen lancets 28 gauge (Acti-Jose #100 ea 10/12/21 12/14/21 Rx Lancets) blood sugar diagnostic (Accu-Chek #100 ea 10/14/21 12/14/21 Rx Sirena Plus test strp) dulaglutide 1.5 mg/0.5 mL 1.5 mg (0.5 mL) subcut .weekly #2 10/26/21 12/14/21 Rx subcutaneous pen injector mL pen needle, diabetic 32 gauge x #50 ea 10/26/21 12/14/21 Rx 5/32" (BD Ultra-Fine Romelia Pen Needle) finasteride 5 mg tablet 5 mg PO HS #90 tabs 11/30/21 12/14/21 Rx hydrochlorothiazide 25 mg tablet 25 mg PO DAILY Fluid Retention #30 11/30/21 12/14/21 Rx tabs acetaminophen 300 mg-codeine 30 mg 1 tab PO Q12 PRN headache #45 tabs 01/19/22 Rx tablet Past Med/Surg History Medical History (Updated 01/26/22 @ 11:34 by Bonilla Bond) Aortic atherosclerosis Basal cell carcinoma of skin of face WITH REMOVAL Cardiomyopathy Carotid artery plaque Chronic anticoagulation Chronic venous insufficiency Coronary artery disease Followed by [facility], Melchor Cevallos Diabetic peripheral neuropathy associated with type 2 diabetes mellitus Diverticulosis DVT (deep venous thrombosis) 1994 > LEGS > UNKNOWN ETIOLOGY > XARELTO Dyslipidemia Enlarged prostate with lower urinary tract symptoms (LUTS) Hypertension Lumbar degenerative disc disease Multiple pulmonary nodules JUST MONITORING RAHUL (obstructive sleep apnea) CPAP Overactive bladder Peripheral arterial disease Personal history of diabetic foot ulcer Systolic heart failure FOLLOWS [facility] [place] Tinnitus Type 2 diabetes mellitus Surgical History H/O vascular surgery STENTS TO BILAT LEGS, UNSURE TOTAL NUMBER [id number] History of cataract surgery History of colonoscopy History of heart artery stent 05/2017 Stent placement > [facility] History of toe surgery 09/19/2019--[place]> LEFT 2ND Hx of hernia repair Hx of knee surgery LEFT > ARTHROSCOPIC [place] teeth extracted Family History Grandmother Diabetes Grandfather (Maternal) Stroke Myocardial infarction Other Hypertension Denies family history of Ovarian cancer Prostate cancer Breast cancer Lung cancer Colorectal cancer Social History Smoking Status: Never smoker Second Hand Exposure: No (as a teen); Hx Alcohol Use: Yes Alcohol type: beer, wine and hard liquor Alcohol Intake Frequency: Monthly or Less Hx Substance Use: No Preferred Language: Latvian Communication Ability: Effective Visual Impairment: Limited Hearing Ability: Normal 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 Beliefs That Will Affect Care: None marital status: Current Living Situation: Spouse current occupational status: retired How many Children do You have: 3 Feels Safe at Home: Yes Childhood Exposure to Second-Hand Smoke: Yes caffeine: Yes Dental Care, Regularly: Yes Physical Activity Frequency: 5-6 Times per Week Seatbelt Use: always Sunscreen Use: Yes Assistive Devices: None Review of Systems Constitutional: + fever, + chills and + sweats Eyes: no blind spots and no discharge Ear, Nose, Mouth, Throat: no ear pain Respiratory: no cough Cardiovascular: no chest pain Gastrointestinal: no abdominal pain Genitourinary: + dysuria, + urinary frequency and + hematuria Musculoskeletal: no back pain Integumentary: no acne Neurologic: no gait abnormality Psychiatric: no behavioral changes Endocrine: + fatigue Hematologic / Lymphatic: no easy bleeding Allergy / Immunological: no GI upset with certain foods Physical Exam Constitutional: WD/WN, vitals as above Eyes: PERRL, conjunctivae normal, anicteric sclerae ENMT: external ear and nose normal, oropharynx normal Neck: trachea midline, no thyromegaly Respiratory: normal respiratory effort, lungs clear to auscultation Cardiovascular: RRR, no murmur, no edema Gastrointestinal (Abdomen): normal bowel sounds, soft, nontender, no hepatosplenomegaly Musculoskeletal: no cyanosis or clubbing, extremities motor strength 5/5 Skin: no rashes, warm and dry (except for skintags noted on chest, and ulcerative lesion noted below) Trace b/l pitting edema. Ulcerative lesion noted along the anteromedial aspect of the distal right lower extremity. Mild surrounding erythema, no increased warmth, no drainage or discharge from the wound. Compartments soft. Neurologic: PERRL, EOMI, accommodation nl, no face palsy, no dysarthria Psychiatric: A+Ox3, euthymic affect Lymphatic: no cervical or axillary lymphadenopathy Results & Data Results & Data ([facility]) Vital Signs (Past 12 Hours) Vital Signs Temp Pulse Pulse Resp BP BP Pulse Ox 01/25/22 08:00 19 97 01/25/22 07:43 19 97 01/25/22 07:00 20 98 01/25/22 07:00 36.7 C 82 19 142/85 H 97 01/25/22 06:30 86 18 115/68 96 01/25/22 06:30 18 95 01/25/22 06:15 85 18 102/67 95 01/25/22 06:00 102 H 18 114/74 97 01/25/22 06:00 18 97 01/25/22 05:45 102 H 20 108/76 96 01/25/22 05:52 37.2 C 01/25/22 05:30 98 H 22 126/74 96 01/25/22 05:30 20 98 01/25/22 05:15 101 H 16 133/75 94 01/25/22 05:00 99 H 20 114/70 98 01/25/22 04:54 22 98 01/25/22 04:54 94 01/25/22 04:25 94 01/25/22 04:25 39.4 C H 111 H 20 167/92 H 93 O2 Del Method 01/25/22 08:00 Room Air 01/25/22 07:43 Room Air 01/25/22 07:00 Room Air 07/20/22 07:00 Room Air 01/25/22 06:30 Room Air 01/25/22 06:30 Room Air 01/25/22 06:15 Room Air 01/25/22 06:00 Room Air 01/25/22 06:00 Room Air 01/25/22 05:45 Room Air 01/25/22 05:52 01/25/22 05:30 Room Air 01/25/22 05:30 Room Air 01/25/22 05:15 Room Air 01/25/22 05:00 Room Air 01/25/22 04:54 Room Air 01/25/22 04:54 Room Air 01/25/22 04:25 Room Air 01/25/22 04:25 Room Air PG Care Time/CCT Total # of Minutes Spent Total Time Spent with Patient: Total time spent is greater than 50% in coordination of care (as documented) at patient's floor/unit and/or counseling patient: Coding Level of Care Code 18947 Initial Inpt Care Lvl 3 Diagnoses Sepsis A41.9 Type 2 diabetes mellitus E11.9 Hypertension I10 Depression F32.9 Systolic heart failure I50.20 Diabetes type 2, uncontrolled E11.65 DVT (deep venous thrombosis) I82.409
[2022-01-25] MEDS ORDERED: ONDANSETRON INJ 2 MG/ML 2 ML VIAL IV PRN (09:05)
[2022-01-25] MEDS ORDERED: ACETAMINOPHEN 325 MG TAB PO PRN (09:05)
[2022-01-25] MEDS ORDERED: PHARMACY GLYCEMIC MGMT CONSULT PRN (09:05)
[2022-01-25] MEDS ORDERED: NON-FORMULARY MEDICATION (Insulin Glargine 100 unit/mL (3 mL) insulin pen) SQ SCH (09:15)
[2022-01-25] MEDS ORDERED: CEFEPIME 2,000 MG in SYRINGE 0 ML IV SCH (09:15)
[2022-01-25] MEDS ORDERED: CARBOHYDRATES FOR HYPOGLYCEMIA PO PRN (09:30)
[2022-01-25] MEDS ORDERED: GLUCOSE 10 TAB/TUBE PO PRN (09:30)
[2022-01-25] MEDS ORDERED: GLUCAGON FOR INJ 1 MG VIAL IM PRN (09:30)
[2022-01-25] MEDS ORDERED: DEXTROSE 50% 50 ML SYRINGE IV PRN (09:30)
[2022-01-25] MEDS ORDERED: GLUCOSE 40% GEL 15 GM TUBE PO PRN (09:30)
--- NOTE | 2022-01-25 10:05 | Urology Consultation ---
Date of Consultation January 25, 2022 Assessment & Plan (1) UTI symptoms: Plan 76-year-old male who is status post cystoscopy in clinic on 01/23/2022 presented the emergency department with dysuria and chills. Agree with broad-spectrum prophylactic antibiotics Follow-up culture as UA can appear positive following a procedure even in the setting of no infection Wound evaluation and treatment per primary team No indication for Nelson catheter at this time. As long as patient s ubjectively improves we can hold off on this. He does have elevated PVRs at baseline and urinary incontinence. Urology will follow peripherally. He already has an appointment scheduled in 1 month with an MRI of the prostate previously which we can keep as scheduled. History of Present Illness Reason for Consultation: UTI History of Present Illness 76-year-old male presented to the emergency department with dysuria and chills. He was last seen in clinic on 01/23/2022 and underwent a flexible cystoscopy for BPH work-up. Cystoscopy went without complication and there was no concern for infection at the time of procedure. Patient went home and reported dysuria and then fever chills and came to the emergency department. His vital signs were stable outside of mild tachycardia upon presentation. He was afebrile. White blood cell count was normal at 6.79, creatinine was roughly baseline at 0.99, Pro-Ricky was normal at 0.18, and UA showed positive nitrites, trace leukocyte Estrace, 1-5 WBCs, 30+ RBCs and 4+ bacteria. A culture is pending. He was given cefepime. When I saw him, he was hemodynamically stable and no longer reported chills. He reported feeling better. He was not having a change in his urinary symptoms. At baseline, he does have some incontinence and elevated PVRs. He additionally has a poorly healing right lower extremity wound and was scheduled to see the wound clinic today prior to presenting to the emergency department. Allergies Allergy/AdvReac Type Severity Reaction Status Date / Time No Known Allergies Allergy Verified 12/14/21 14:22 Home Medications Medication Instructions Recorded Confirmed Type multivitamin 1 tab PO QAM #0 tabs 10/09/13 12/14/21 History psyllium husk 3.4 gram/5.4 gram 1 tbs PO HS 04/28/19 12/14/21 History oral powder (Metamucil) rivaroxaban 20 mg tablet (Xarelto) 20 mg PO HS 06/03/19 12/14/21 History lisinopril 10 mg tablet 10 mg PO BID #0 tabs 09/09/19 12/14/21 History atorvastatin 40 mg tablet 40 mg PO DAILY 05/30/21 12/14/21 History blood-glucose meter (Accu-Chek #1 ea 05/31/21 12/14/21 Rx Sirena Plus Meter) cholecalciferol (vitamin D3) 25 3,000 unit PO HS PRN 06/07/21 12/14/21 History mcg (1,000 unit) capsule lactobacillus combination no.8 3 See Rx Instructions PO BID 06/07/21 12/14/21 History billion cell capsule (Adult Probiotic) tamsulosin 0.4 mg capsule 0.4 mg PO HS #90 caps 06/28/21 12/14/21 Rx metformin 500 mg tablet 500 mg PO BID #180 tabs 07/13/21 12/14/21 Rx bupropion HCl 150 mg 24 hr tablet, 300 mg PO HS 08/30/21 12/14/21 History extended release insulin glargine 100 unit/mL (3 18 unit (0.18 mL) subcut QAM #15 mL 08/30/21 12/14/21 Rx mL) subcutaneous pen lancets 28 gauge (Acti-Jose #100 ea 10/12/21 12/14/21 Rx Lancets) blood sugar diagnostic (Accu-Chek #100 ea 10/14/21 12/14/21 Rx Sirena Plus test strp) dulaglutide 1.5 mg/0.5 mL 1.5 mg (0.5 mL) subcut .weekly #2 10/26/21 12/14/21 Rx subcutaneous pen injector mL pen needle, diabetic 32 gauge x #50 ea 10/26/21 12/14/21 Rx 5/32" (BD Ultra-Fine Romelia Pen Needle) finasteride 5 mg tablet 5 mg PO HS #90 tabs 11/30/21 12/14/21 Rx hydrochlorothiazide 25 mg tablet 25 mg PO DAILY Fluid Retention #30 11/30/21 12/14/21 Rx tabs acetaminophen 300 mg-codeine 30 mg 1 tab PO Q12 PRN headache #45 tabs 01/19/22 Rx tablet Patient History Medical History Aortic atherosclerosis Basal cell carcinoma of skin of face WITH REMOVAL Cardiomyopathy Carotid artery plaque Chronic anticoagulation Chronic venous insufficiency Coronary artery disease Followed by [facility], [place] Depression Diabetic peripheral neuropathy associated with type 2 diabetes mellitus Diverticulosis DVT (deep venous thrombosis) 1994 > LEGS > UNKNOWN ETIOLOGY > XARELTO Dyslipidemia Enlarged prostate with lower urinary tract symptoms (LUTS) Hypertension Lumbar degenerative disc disease Multiple pulmonary nodules JUST MONITORING RAHUL (obstructive sleep apnea) CPAP Overactive bladder Peripheral arterial disease Personal history of diabetic foot ulcer Systolic heart failure FOLLOWS [facility] [place] Tinnitus Type 2 diabetes mellitus Surgical History H/O vascular surgery STENTS TO BILAT LEGS, UNSURE TOTAL NUMBER [phone] History of cataract surgery History of colonoscopy History of heart artery stent 05/2017 Stent placement > [facility] History of toe surgery 09/19/2019--[place]> LEFT 2ND Hx of hernia repair Hx of knee surgery LEFT > ARTHROSCOPIC [place] teeth extracted Family History Grandmother Diabetes Grandfather (Maternal) Stroke Myocardial infarction Other Hypertension Denies family history of Ovarian cancer Prostate cancer Breast cancer Lung cancer Colorectal cancer Social History Smoking Status: Never smoker Second Hand Exposure: No (as a teen); Hx Alcohol Use: Yes Alcohol type: beer, wine and hard liquor Alcohol Intake Frequency: Monthly or Less Hx Substance Use: No Preferred Language: Vietnamese Communication Ability: Effective Visual Impairment: Limited Hearing Ability: Normal 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 Beliefs That Will Affect Care: None marital status: Current Living Situation: Spouse current occupational status: retired How many Children do You have: 2 Feels Safe at Home: Yes Childhood Exposure to Second-Hand Smoke: Yes caffeine: Yes Dental Care, Regularly: Yes Physical Activity Frequency: 5-6 Times per Week Seatbelt Use: always Sunscreen Use: Yes Assistive Devices: Glasses Review of Systems Review of Systems: 14 point review of systems negative outside of what is listed above in HPI Physical Exam Physical Exam: General: Alert and oriented, no acute distress HEENT: Normocephalic, mucous membranes moist Pulmonary: Nonlabored respirations Abdomen: Nondistended Extremities: Moves all 4 spontaneously Neuro: No gross deficits Skin: Warm, dry, no rashes noted Results & Data ([facility]) Vital Signs (Past 12 Hours) Vital Signs Temp Pulse Pulse Resp BP BP Pulse Ox 01/25/22 10:00 19 98 01/25/22 10:00 36.5 C 80 19 107/64 98 01/25/22 09:30 19 95 01/25/22 09:00 19 94 01/25/22 08:00 19 97 01/25/22 07:43 19 97 01/25/22 07:00 20 98 01/25/22 07:00 36.7 C 82 19 142/85 H 97 01/25/22 06:30 86 18 115/68 96 01/25/22 06:30 18 95 01/25/22 06:15 85 18 102/67 95 01/25/22 06:00 102 H 18 114/74 97 01/25/22 06:00 18 97 01/25/22 05:45 102 H 20 108/76 96 01/25/22 05:52 37.2 C 01/25/22 05:30 98 H 22 126/74 96 01/25/22 05:30 20 98 01/25/22 05:15 101 H 16 133/75 94 01/25/22 05:00 99 H 20 114/70 98 01/25/22 04:54 22 98 01/25/22 04:54 94 01/25/22 04:25 94 01/25/22 04:25 39.4 C H 111 H 20 167/92 H 93 O2 Del Method 01/25/22 10:00 Room Air 01/25/22 10:00 Room Air 01/25/22 09:30 Room Air 01/25/22 09:00 Room Air 01/25/22 08:00 Room Air 01/25/22 07:43 Room Air 01/25/22 07:00 Room Air 01/25/22 07:00 Room Air 01/25/22 06:30 Room Air 01/25/22 06:30 Room Air 01/25/22 06:15 Room Air 01/25/22 06:00 Room Air 01/25/22 06:00 Room Air 01/25/22 05:45 Room Air 01/25/22 05:52 01/25/22 05:30 Room Air 01/25/22 05:30 Room Air 01/25/22 05:15 Room Air 01/25/22 05:00 Room Air 01/25/22 04:54 Room Air 01/25/22 04:54 Room Air 01/25/22 04:25 Room Air 01/25/22 04:25 Room Air PG Care Time/CCT Total # of Minutes Spent Total Time Spent with Patient: Total time spent is greater than 50% in coordination of care (as documented) at patient's floor/unit and/or counseling patient: [place] [address] Initial Inpt Care Lvl 2 Patient Type Established Diagnoses UTI symptoms R39.9
[2022-01-25] MEDS ORDERED: LANTUS PER UNIT CHARGE SQ ONE ×2 (12:00→21:00)
[2022-01-25] MEDS: INSULIN ASPART PER UNIT SC SCH ×3 (13:13→21:25)
--- NOTE | 2022-01-25 13:25 | Pharmacy Report ---
Pharmacy Glycemic Short Note 2 - Date of Service January 25, 2022 - Glycemic Short BSG Results (Last 24 hours): 01/25/22 01/25/22 04:30 11:48 Glucose 126 H POC Glucose 149 H OUTPATIENT ANTIDIABETIC REGIMEN: * Trulicity 1.5 mg weekly, Lantus qAM (?) 35 vs 18 units * Metformin 500 mg BIDM * A1c 5.6% 11/28/21 ASSESSMENT: * Patient admitted with possible sepsis. BSG upon admission 126 mg/dL * Patient with good outpatient control indicated by A1c (if not experiencing frequent hypoglycemic events). * Will begin basal/bolus regimen- as patient does use novolg at home will start with reduced basal dose (with additional tonight if needed) and add novolog between weight based stress of 1 and 2. PLAN FOR INPATIENT GLYCEMIC CONTROL: * Hold outpatient oral diabetes medications * Basal insulin * Lantus 10 units SQ x1, additional this PM if BSG > 180 mg/dL * Bolus insulin * NovoLog per scale ACHS or Q6hrs while NPO * Goal Range: Low 110 mg/dL - High 140 mg/dL * Correction Factor: 30 mg/dL/unit * Nutritional / Prandial insulin per carb ratio of 1 unit per 10 grams CHO consumed
[2022-01-25] MEDS: POLYETHYLENE (MIRALAX) 17 GM PACK PO SCH (15:32)
--- NOTE | 2022-01-25 16:43 | Electrocardiogram Report ---
Test Reason : Blood Pressure : / mmHG Vent. Rate : 109 BPM Atrial Rate : 109 BPM P-R Int : 216 ms QRS Dur : 144 ms QT Int : 358 ms P-R-T Axes : 000 -80 062 degrees QTc Int : 482 ms Poor data quality, interpretation may be adversely affected Sinus tachycardia with 1st degree A-V block Right bundle branch block Left anterior fascicular block Bifascicular block Abnormal ECG When compared with ECG of 25-JAN-2022 04:23, (unconfirmed) No significant change was found Confirmed by Anton Love ([id number]) on 01/25/2022 4:43:26 PM Referred By: REFERRED SELF Confirmed By:Anton Love
[2022-01-25] MEDS: ADVANCED PROBIOTIC 1250 MG CAPSULE PO SCH (18:22)
[2022-01-25 20:49] LABS: A calco-baum cmplx NotReported Not Detected (NotDetected); Bact fragilis Not Reported Not Detected (NotDetected); C auris Not Reported Not Detected (NotDetected); CTX-M Resistant Gene Not Detected (NotDetected); Calbicans Not Reported Not Detected (NotDetected); Candida glabrata Not Reported Not Detected (NotDetected); Candida krusei Not Reported Not Detected (NotDetected); Cneoformans/gatti Not Reported Not Detected (NotDetected); Cparapsilosis Not Reported Not Detected (NotDetected); Ctropicalis Not Reported Not Detected (NotDetected); E cloacae compx Not Reported Not Detected (NotDetected); Efaecalis Not Reported Not Detected (NotDetected); Efaecium Not Reported Not Detected (NotDetected); Enterobacterales Not Reported Not Detected (NotDetected); Escherichia coli Not Reported Not Detected (NotDetected); H influenzae Not Reported Not Detected (NotDetected); IMP Resistant Gene Not Detected (NotDetected); K aerogenes Not Reported Not Detected (NotDetected); KPC Resistant Gene Not Detected (NotDetected); Koxytoca Not Reported Not Detected (NotDetected); Kpneumoniae grp Not Reported Not Detected (NotDetected); Lmonocyt Not Reported Not Detected (NotDetected); N meningitidis Not Reported Not Detected (NotDetected); NDM Resistant Gene Not Detected (NotDetected); P aeruginosa Not Reported DETECTED (NotDetected); Proteus spp Not Reported Not Detected (NotDetected); Salmonella spp Not Reported Not Detected (NotDetected); Smarcescens Not Reported Not Detected (NotDetected); Staph lugdunensis Not Reported Not Detected (NotDetected); Staph spp. Not Reported Not Detected (NotDetected); Staphaureus Not Reported Not Detected (NotDetected); Staphepi Not Reported Not Detected (NotDetected); Stenmaltophilia Not Reported Not Detected (NotDetected); Strep agal(GrpB) Not Reported Not Detected (NotDetected); Strep pneum Not Reported Not Detected (NotDetected); Strep pyog (GrpA) Not Reported Not Detected (NotDetected); Strep spp Not Reported Not Detected (NotDetected); VIM Resistant Gene Not Detected (NotDetected)
[2022-01-25 20:52] LABS: Pseudomonas aeruginosa DETECTED (NotDetected)
[2022-01-25] MEDS: lisinopril 10 MG TAB PO SCH (21:28)
[2022-01-25] MEDS: FINASTERIDE 5 MG TAB PO SCH (21:28)
[2022-01-25] MEDS: buPROPion XL 300 MG TABCR PO SCH (21:28)
[2022-01-25] MEDS: CHOLECALCIFEROL 1,000 UNITS 25 MCG TAB PO SCH (21:28)
[2022-01-25] MEDS: CEFEPIME 2,000 MG in SYRINGE 0 ML IV SCH (21:39)
[2022-01-25] MEDS: RIVAROXABAN 20 MG TAB PO SCH (22:48)
[2022-01-26] MEDS: lisinopril 10 MG TAB PO SCH ×2 (08:19→20:36)
[2022-01-26] MEDS: hydroCHLOROthiazide 25 MG TAB PO SCH (08:19)
[2022-01-26] MEDS: MULTIVITAMIN TAB PO SCH (08:19)
[2022-01-26] MEDS: ATORVASTATIN 40 MG TAB PO SCH (08:19)
[2022-01-26] MEDS: ADVANCED PROBIOTIC 1250 MG CAPSULE PO SCH (08:20)
[2022-01-26] MEDS: POLYETHYLENE (MIRALAX) 17 GM PACK PO SCH (08:20)
[2022-01-26] MEDS ORDERED: LANTUS PER UNIT CHARGE SQ SCH (09:00)
[2022-01-26] MEDS: INSULIN ASPART PER UNIT SC SCH ×4 (09:30→21:41)
[2022-01-26 09:49] LABS: Hematocrit (blood only) 34.8 % (40.1-51.0); Mean Corpuscular Hemoglobin 31.3 pg (25.0-34.0); Mean Corpuscular Hgb Conc 34.5 g/dL (32.0-36.0); Mean Corpuscular Volume 90.9 fL (80.0-100.0); RDW Coefficient of Variation 12.8 % (11.5-14.5); RDW Standard Deviation 41.6 fL (36.4-46.3); Red Blood Count 3.83 M/uL (4.63-6.08); White Blood Count 7.86 K/ul (4.8-10.8)
[2022-01-26] MEDS: CEFEPIME 2,000 MG in SYRINGE 0 ML IV SCH ×2 (10:06→17:36)
[2022-01-26 10:10] LABS: Mean Platelet Volume 9.9 fL (9.4-12.4); Platelet Count 87 K/uL (130-400); Platelet Estimate Decreased (Normal)
[2022-01-26 10:19] LABS: BUN Creatinine Ratio 28.7 (10-20); Calcium 8.3 mg/dl (8.5-10.1); Creatinine Clr Calc Pharmacy 80.4 ml/min; Est GFR (African American) 91.6 ml/min; Potassium 3.4 mmol/L (3.5-5.1)
--- NOTE | 2022-01-26 11:21 | Hospitalist Progress Note ---
Date of Service January 26, 2022 Assessment & Plan (1) Sepsis: Plan: Admitted for urosepsis, tachy + febrile status post cystoscopy in clinic on 01/23/2022 UA infected appearing, UC pending concerning for pseudomonas. Continue cefepime Uro consutled. Agree with abx. No indication for diana at this time. Appreciate recommendations. Continue cefepime. Follow for cx results and sensitivities, prelim supsicious for pseudomonas. Pt with QTc 466. If FQ used would follow serial EKG for stability given hx of borderling QTp. (2) Type 2 diabetes mellitus: Plan: glycemic management is consulted adequate glycemic control 01/26 (3) Hypertension: Plan: continue hctz, lisinopril normotensive 01/26 (4) Depression: Plan: resume home meds (5) Systolic heart failure: Plan: Chronic systolic heart failure, no acute exacerbation Appears stable continue statin, antihypertensives as noted (6) Diabetes type 2, uncontrolled: Plan: glycemic control consulted hold home antiglycemics glucose checks ac/hs bmp daily Admission and Anticipated Discharge Date Admission Date: January 25, 2022 Subjective Continues to have dysuria. +incontinence urinary at baseline. No fevers/chills/sweats/CP/CP. No abdominal or flank pain. No SoB/dyspnea. Review of Systems Review of Systems: All systems reviewed & are unremarkable except as noted in Subjective Physical Exam Physical Exam: General: A&Ox3. NAD. Cooperative. HEENT: Atraumatic, normocephalic. Pulm: CTAB A&P. -wheezes, -rales, -rhonchi. Symmetrical chest rise. No increased work of breathing. No respiratory distress. Cardiac: RRR, -mrg. Radial pulses intact and symmetrical. Abdominal: Nontender, nondistended, soft. BS present. Results & Data Results & Data ([facility]) Vital Signs (Past 12 Hours) Vital Signs Temp Pulse Resp BP Pulse Ox O2 Del Method 01/26/22 07:17 36.7 C 68 18 137/77 97 Room Air PG Care Time/CCT Total # of Minutes Spent Total Time Spent with Patient: Total time spent is greater than 50% in coordination of care (as documented) at patient's floor/unit and/or counseling patient: Coding Level of Care Code 14731 Subseq Hosp Care Lvl 2 Diagnoses Sepsis A41.9 Type 2 diabetes mellitus E11.9 Hypertension I10 Depression F32.9 Systolic heart failure I50.20 Diabetes type 2, uncontrolled E11.65
--- NOTE | 2022-01-26 12:28 | Pharmacy Report ---
Pharmacy Glycemic Short Note 2 - Date of Service January 26, 2022 - Glycemic Short BSG Results (Last 24 hours): 01/25/22 01/25/22 01/26/22 16:54 20:57 08:15 Glucose POC Glucose 143 H 160 H 118 H 01/26/22 01/26/22 09:13 12:05 Glucose 155 H POC Glucose 105 H OUTPATIENT ANTIDIABETIC REGIMEN: * Trulicity 1.5 mg weekly, Lantus qAM (?) 35 vs 18 units * Metformin 500 mg BIDM * A1c 5.6% 11/28/21 ASSESSMENT: 01/26/22: * Mr. Figueroa demonstrated excellent glycemic control yesterday. BSGs: 126, 149, 143, 160 mg/dL. * He received Lantus 10 units + Novolog 3 units * Carbohydrate intake was minimal during this time * Fasting BSG of 118 mg/dL this morning - will continue current Lantus order * Slight trend downward at lunch - will loosen carb coverage 01/25/22: * Patient admitted with possible sepsis. BSG upon admission 126 mg/dL * Patient with good outpatient control indicated by A1c (if not experiencing frequent hypoglycemic events). * Will begin basal/bolus regimen- as patient does use novolg at home will start with reduced basal dose (with additional tonight if needed) and add novolog between weight based stress of 1 and 2. PLAN FOR INPATIENT GLYCEMIC CONTROL: * Hold outpatient oral diabetes medications * Basal insulin * Lantus 10 units SQ daily * Bolus insulin * NovoLog per scale ACHS or Q6hrs while NPO * Goal Range: Low 110 mg/dL - High 140 mg/dL * Correction Factor: 30 mg/dL/unit * Nutritional / Prandial insulin per carb ratio of 1 unit per 12 grams CHO consumed
--- NOTE | 2022-01-26 13:19 | Urology Progress Note ---
Date of Service January 26, 2022 Assessment & Plan (1) UTI symptoms: (2) Sepsis: Plan 76-year-old male admitted to the hospital with subjective fevers and chills. Urine culture prelim positive for Pseudomonas and blood cultures positive for gram-negative bacilli. Continue cefepime. Follow-up cultures. Patient is improving so does not need catheter. Did offer Nelson catheter for discomfort and he declined Urology to follow while patient hospitalized Patient does have an MRI scheduled in early February for work-up for elevated PSA and he would like to postpone this study. I will keep our follow-up in 1 month to ensure he is doing well after discharge from the hospital. Admission and Anticipated Discharge Date Admission Date: January 25, 2022 Subjective Spoke to patient and at bedside. Subjectively feeling better. Still having some dysuria but voiding without issue. Patient declined catheter. Reports appetite is improving. Afebrile with stable vitals. Urine culture prelim Pseudomonas and blood cultures positive for gram-negative bacilli x2. Review of Systems Review of Systems: 14 point review of systems negative outside of what is listed above in HPI Physical Exam Physical Exam: General: Alert and oriented, no acute distress HEENT: Normocephalic, mucous membranes moist Pulmonary: Nonlabored respirations Abdomen: Nondistended Extremities: Moves all 4 spontaneously Neuro: No gross deficits Skin: Warm, dry, no rashes noted Results & Data ([facility]) Vital Signs (Past 12 Hours) Vital Signs Temp Pulse Resp BP Pulse Ox O2 Del Method 01/26/22 07:17 36.7 C 68 18 137/77 97 Room Air PG Care Time/CCT Total # of Minutes Spent Total Time Spent with Patient: Total time spent is greater than 50% in coordination of care (as documented) at patient's floor/unit and/or counseling patient: Coding Level of Care Code 72415 Subseq Hosp Care Lvl 2 Diagnoses UTI symptoms R39.9 Sepsis A41.9
[2022-01-26] MEDS: CHOLECALCIFEROL 1,000 UNITS 25 MCG TAB PO SCH (20:34)
[2022-01-26] MEDS: FINASTERIDE 5 MG TAB PO SCH (20:35)
[2022-01-26] MEDS: RIVAROXABAN 20 MG TAB PO SCH (20:35)
[2022-01-26] MEDS: buPROPion XL 300 MG TABCR PO SCH (20:36)
[2022-01-27] MEDS: CEFEPIME 2,000 MG in SYRINGE 0 ML IV SCH (02:51)
--- NOTE | 2022-01-27 05:38 | Electrocardiogram Report ---
Test Reason : Blood Pressure : / mmHG Vent. Rate : 062 BPM Atrial Rate : 062 BPM P-R Int : 282 ms QRS Dur : 152 ms QT Int : 460 ms P-R-T Axes : 000 -78 -10 degrees QTc Int : 466 ms Sinus rhythm with 1st degree A-V block Right bundle branch block Left anterior fascicular block Bifascicular block Abnormal ECG When compared with ECG of 25-JAN-2022 04:25, Vent. rate has decreased BY 47 BPM Nonspecific T wave abnormality now evident in Inferior leads T wave amplitude has decreased in Lateral leads Confirmed by Ramon Azul ([id number]) on 01/27/2022 5:38:15 AM Referred By: REFERRED SELF Confirmed By:Ramon Azul
[2022-01-27] MEDS: ADVANCED PROBIOTIC 1250 MG CAPSULE PO SCH (08:06)
[2022-01-27] MEDS: MULTIVITAMIN TAB PO SCH (08:06)
[2022-01-27] MEDS: ATORVASTATIN 40 MG TAB PO SCH (08:06)
[2022-01-27] MEDS: hydroCHLOROthiazide 25 MG TAB PO SCH (08:06)
[2022-01-27] MEDS: lisinopril 10 MG TAB PO SCH ×2 (08:07→21:44)
[2022-01-27] MEDS: POLYETHYLENE (MIRALAX) 17 GM PACK PO SCH (08:07)
[2022-01-27] MEDS ORDERED: LANTUS PER UNIT CHARGE SQ SCH (09:00)
[2022-01-27] MEDS: CIPROFLOXACIN 500 MG TAB PO SCH ×2 (09:13→21:44)
[2022-01-27] MEDS: INSULIN ASPART PER UNIT SC SCH ×4 (09:13→21:46)
--- NOTE | 2022-01-27 09:32 | Urology Progress Note ---
Date of Service January 27, 2022 Assessment & Plan (1) Sepsis: (2) UTI (urinary tract infection), bacterial: Plan 76-year-old male admitted to the hospital with subjective fevers and chills. Urine culture prelim positive for Pseudomonas and blood cultures positive for gram-negative bacilli. Continue ciprofloxacin. Follow-up cultures. Patient is improving so does not need catheter Urology to follow while patient hospitalized. Stable from urologic standpoint to be discharged home. Patient does have an MRI scheduled in early February for work-up for elevated PSA and he would like to postpone this study. I will keep our follow-up in 1 month to ensure he is doing well after discharge from the hospital. Admission and Anticipated Discharge Date Admission Date: January 25, 2022 Subjective Afebrile with stable vitals. Blood and urine cultures growing out Pseudomonas. Transition to ciprofloxacin. Patient reports feeling better today. Review of Systems Review of Systems: 14 point review of systems negative outside of what is listed above in HPI Physical Exam Physical Exam: General: Alert and oriented, no acute distress HEENT: Normocephalic, mucous membranes moist Pulmonary: Nonlabored respirations Abdomen: Nondistended Extremities: Moves all 4 spontaneously Neuro: No gross deficits Skin: Warm, dry, no rashes noted Results & Data ([facility]) Vital Signs (Past 12 Hours) Vital Signs Temp Pulse Resp BP Pulse Ox O2 Del Method 01/27/22 07:24 36.7 C 65 20 136/79 98 Room Air 01/26/22 23:10 37.3 C 65 20 137/83 98 CPAP PG Care Time/CCT Total # of Minutes Spent Total Time Spent with Patient: Total time spent is greater than 50% in coordination of care (as documented) at patient's floor/unit and/or counseling patient: Coding Level of Care Code 23076 Subseq Hosp Care Lvl 2 Diagnoses Sepsis A41.9 UTI (urinary tract infection), bacterial N39.0; A49.9
--- NOTE | 2022-01-27 10:54 | Hospitalist Progress Note ---
Date of Service January 27, 2022 Assessment & Plan (1) Sepsis: Plan: Urosepsis Admitted febrile with tachycardia Blood cultures positive for Pseudomonas Urine culture positive for Pseudomonas Transition from cefepime to ciprofloxacin 01/27. QTc <480, has tolerated ciprofloxacin well before for diverticulitis Somewhat clammy morning of 01/27 without fever Follow clinically with conversion to ciprofloxacin, surveillance blood cultures obtained 01/27. If negative at 24 hours, may progress to discharge to complete at least 10-day course of antibiotics (2) Type 2 diabetes mellitus: Plan: glycemic management is consulted BSG adequately controlled 01/27 (3) Hypertension: Plan: TEODORO, HCTZ, normotensive today (4) Depression: Plan: continue buproprion. (5) Systolic heart failure: Plan: Chronic systolic heart failure Stable, no acute exacerbation Continue TEODORO, HCTZ (6) Diabetes type 2, uncontrolled: Plan: glycemic control consulted Continue (7) DVT (deep venous thrombosis): Plan: h/o of chronic Dvt IN THE PAST. Patient is on xarelto. Admission and Anticipated Discharge Date Admission Date: January 25, 2022 Subjective Seen at the bedside this morning. Overall feels well with improving energy. No abdominal pain, no dysuria. Did feel sweaty and clammy overnight, somewhat clammy at the bedside but afebrile. Mild fatigue, no chest pain, chest pressure, shortness of breath, difficulty breathing. Blood cultures positive for Pseudomonas, Review of Systems Review of Systems: All systems reviewed & are unremarkable except as noted in Subjective Physical Exam Physical Exam: General: A&Ox3. NAD. Cooperative. HEENT: Atraumatic, normocephalic. Pulm: CTAB A&P. -wheezes, -rales, -rhonchi. Symmetrical chest rise. No increased work of breathing. No respiratory distress. Cardiac: RRR, -mrg. Radial pulses intact and symmetrical. Abdominal: Nontender, nondistended, soft. BS present. Results & Data Results & Data ([facility]) Vital Signs (Past 12 Hours) Vital Signs Temp Pulse Resp BP Pulse Ox O2 Del Method 01/27/22 07:24 36.7 C 65 20 136/79 98 Room Air 01/26/22 23:10 37.3 C 65 20 137/83 98 CPAP PG Care Time/CCT Total # of Minutes Spent Total Time Spent with Patient: Total time spent is greater than 50% in coordination of care (as documented) at patient's floor/unit and/or counseling patient: Coding Level of Care Code 20921 Subseq Hosp Care Lvl 2 Diagnoses Sepsis A41.9 Type 2 diabetes mellitus E11.9 Hypertension I10 Depression F32.9 Systolic heart failure I50.20 Diabetes type 2, uncontrolled E11.65 DVT (deep venous thrombosis) I82.409
--- NOTE | 2022-01-27 12:44 | Pharmacy Report ---
Pharmacy Glycemic Short Note 2 - Date of Service January 27, 2022 - Glycemic Short BSG Results (Last 24 hours): 01/26/22 01/26/22 01/27/22 17:10 20:27 08:20 POC Glucose 92 134 H 131 H 01/27/22 12:23 POC Glucose 106 H OUTPATIENT ANTIDIABETIC REGIMEN: * Trulicity 1.5 mg weekly, Lantus qAM (?) 35 vs 18 units * Metformin 500 mg BIDM * A1c 5.6% 11/28/21 ASSESSMENT: 01/27/22 * BSGs yesterday were 492-068-71-134 mg/dL. Fasting today is 131 mg/dL. * Will increase basal to 15 units today. Scale for tomorrow if fasting trends downwards. * Loosen Novolog since patient trends downwards throughout the day. 01/26/22: * Mr. Figueroa demonstrated excellent glycemic control yesterday. BSGs: 126, 149, 143, 160 mg/dL. * He received Lantus 10 units + Novolog 3 units * Carbohydrate intake was minimal during this time * Fasting BSG of 118 mg/dL this morning - will continue current Lantus order * Slight trend downward at lunch - will loosen carb coverage 01/25/22: * Patient admitted with possible sepsis. BSG upon admission 126 mg/dL * Patient with good outpatient control indicated by A1c (if not experiencing frequent hypoglycemic events). * Will begin basal/bolus regimen- as patient does use novolg at home will start with reduced basal dose (with additional tonight if needed) and add novolog between weight based stress of 1 and 2. PLAN FOR INPATIENT GLYCEMIC CONTROL: * Hold outpatient oral diabetes medications * Basal insulin * Lantus 15 units SQ daily (10 units if BSG < 120 mg/dL) * Bolus insulin * NovoLog per scale ACHS or Q6hrs while NPO * Goal Range: Low 110 mg/dL - High 140 mg/dL * Correction Factor: 35 mg/dL/unit * Nutritional / Prandial insulin per carb ratio of 1 unit per 15 grams CHO consumed
--- NOTE | 2022-01-27 17:58 | Discharge Summary ---
Date of Service January 27, 2022 Admission HPI Per Admitting Provider 76 yo male reports having subjective fever and chills that awoke him in his sleep this AM. Patient states that he had a cystoscopy in the outpatient office 2 days ago and since then has had dysuria. Patient also reports an episode of hematuria this AM. Patient also reports about 2 week ago he had an injury at the pool, where the diving board scratched his leg. He had been on cliondamycin as prescribed by an urgent care. Once in the ED, bloodwork was drawn, and antibiotics given. Patient reports feeling better now. Principal Diagnosis Pseudomonal UTI with pseudomonal bacteremia Discharge Exam General: A&Ox3. NAD. Cooperative. HEENT: Atraumatic, normocephalic. Pulm: CTAB A&P. -wheezes, -rales, -rhonchi. Symmetrical chest rise. No increased work of breathing. No respiratory distress. Cardiac: RRR, -mrg. Radial pulses intact and symmetrical. Abdominal: Nontender, nondistended, soft. BS present. Discharge Data Allergies Allergy/AdvReac Type Severity Reaction Status Date / Time No Known Allergies Allergy Verified 12/14/21 14:22 Consultations 01/25/22 07:42 ED Decision to Admit Stat 01/25/22 08:41 Consult Urology Routine Hospital Course (1) Sepsis: Eric is a 76-year-old male with a past medical history of diabetes with neuropathy, peripheral artery disease, CAD, cardiomyopathy, sleep apnea who presented febrile and tachycardic and to urine and blood cultures positive for Pseudomonas without extended resistance patterns. He was treated with cefepime and narrowed to ciprofloxacin EKG during admission showed a QTC less than 480. Blood cultures did return positive after slight delay, patient had surveillance cultures drawn which were pending on a read but negative at time of discharge To do as outpatient: 1. Complete course of ciprofloxacin for pseudomonal UTI, duration extended for bacteremia 2. Follow-up to PCP and urology as outpatient 3. Repeat CBC/BMP as outpatient within 1 week Urosepsis Admitted febrile with tachycardia Blood cultures positive for Pseudomonas Urine culture positive for Pseudomonas Transition from cefepime to ciprofloxacin 01/27. QTc <480, has tolerated ciprofloxacin well before for diverticulitis Somewhat clammy morning of 01/27 without fever Clinically improved and defervesced. No ongoing fevers, no persistent bacteremia. No history of artificial valve placement/valve abnormalities. (2) Type 2 diabetes mellitus: glycemic management is consulted BSG adequately controlled 01/27 (3) Hypertension: TEODORO, HCTZ, normotensive today (4) Depression: continue buproprion. (5) Systolic heart failure: Chronic systolic heart failure Stable, no acute exacerbation Continue TEODORO, HCTZ (6) Diabetes type 2, uncontrolled: glycemic control consulted Continue (7) DVT (deep venous thrombosis): h/o of chronic Dvt IN THE PAST. Patient is on xarelto. Total Time Total Time Spent Total Time Spent (In Minutes): Time spend day of discharge 31 minutes including direct patient care, documentation, review of labs and images, and coordination of care. Discharge Plan Discharge Items Patient Disposition: Home - Self-Care Reason For Visit: SEPSIS Discharge Diagnosis: Urosepsis Activity: Resume your previous activity Non-emergency contact: Primary Care Provider and Urologist Call non-emergency contact if: you have any medication questions and your symptoms worsen Follow-up/Referrals: Ramiro Brandon DO [Primary Care Provider] - Diet: Heart Healthy and Low Sodium (2gm) Addtl Attending Provider Instructions: You are seen in the hospital for urosepsis, a severe infection due to urinary tract infection. Your urine cultures and blood cultures both showed evidence of Pseudomonas, a type of bacteria. You were treated with IV antibiotics during admission, and transitioned to ciprofloxacin. Your surveillance blood cultures were negative at 24 hours, please follow-up with your PCP to ensure that the final cultures have remained negative. You have been prescribed an antibiotic, ciprofloxacin. Please take ciprofloxacin 500 mg by mouth twice daily for 8 additional days to complete a course of treatment including that received while in the hospital. If you develop any new or worsening symptoms including fever, chills, sweats, chest pain, chest pressure, difficulty breathing, uncontrolled nausea/vomiting, rash, wheezing, passing out or nearly passing out, bleeding, black/bloody bowel movements, or other new or concerning symptoms please call your primary care physician, or call 911 for re-evaluation in the emergency department if you are very concerned. Pending Studies at Discharge: No Stand-Alone Forms: My [employer], Smoking Cessation Medications and DC Order Prescriptions: New ciprofloxacin HCl 500 mg Tablet 500 mg PO BID 8 Days Qty: 16 0RF Continued cholecalciferol (vitamin D3) 25 mcg (1,000 unit) capsule 3,000 unit PO HS PRN Adult Probiotic 3 billion cell capsule See Rx Instructions PO BID Rx Instructions: 1 capsule PO twice a day; multivitamin Tablet 1 tab PO QAM Qty: 0 Xarelto 20 mg tablet 20 mg PO HS lisinopril 10 mg tablet 10 mg PO BID Qty: 0 metformin 500 mg tablet 500 mg PO BID Qty: 180 3RF (DME) lancets [Acti-Jose Lancets] 28 gauge misc See Rx Instructions .Route Qty: 100 1RF Rx Instructions: test once daily (DME) Accu-Chek Sirena Plus test strp Strip See Rx Instructions .Route Qty: 100 3RF Rx Instructions: tests once daily (DME) pen needle, diabetic [BD Ultra-Fine Romelia Pen Needle] 32 gauge x 5/32" needle See Rx Instructions .Route Qty: 50 6RF Rx Instructions: As directed dulaglutide 1.5 mg/0.5 mL pen injector 1.5 mg subcut .weekly Qty: 2 3RF acetaminophen-codeine 300-30 mg tablet 1 tab PO Q12 PRN (Reason: headache) Qty: 45 1RF bupropion HCl 150 mg tablet extended release 24 hr 300 mg PO HS insulin glargine 100 unit/mL (3 mL) insulin pen 18 unit subcut QAM Qty: 15 2RF tamsulosin 0.4 mg capsule 0.4 mg PO HS Qty: 90 3RF finasteride 5 mg tablet 5 mg PO HS Qty: 90 3RF hydrochlorothiazide 25 mg tablet 25 mg PO DAILY Qty: 30 5RF (DME) blood-glucose meter [Accu-Chek Sirena Plus Meter] [facility] See Rx Instructions .Route Qty: 1 0RF Rx Instructions: test twice daily Metamucil 3.4 gram/5.4 gram powder 1 tbs PO HS atorvastatin 40 mg tablet 40 mg PO DAILY Discharge Orders: Discharge Order (Routine); Ordered 01/28/22 Ordered By: Tuan Olea/Other Patient Handouts: Managing Type 2 Diabetes, Understanding Sepsis Admission Data Admit Date/Time: 01/25/22 09:05 Attending Provider: Tuan Carbajal Admit Provider: Bonilla Bond Primary Care Provider: Ramiro Brandon Other Providers: Bonilla Bond ; Tapan Santillan ; Glenn Carranza ; Devon Webber ; Jody Lehman ; Alan Ibanez ; Marie Baker ; Mary Lewis ; Gabo Arellano ; Genevieve Antony ; Socorro Menjivar ; Hang Goldstein ; Michelle Reyes ; Unruly Savage Other Interventions: Discharge Summary Assessment (RN) Last Done: 01/28/22 09:20 Coding Level of Care Code D/C DAY MANAGEMENT >30 MINS Diagnoses Sepsis A41.9 Type 2 diabetes mellitus E11.9 Hypertension I10 Depression F32.9 Systolic heart failure I50.20 Diabetes type 2, uncontrolled E11.65 DVT (deep venous thrombosis) I82.409
[2022-01-27] MEDS: RIVAROXABAN 20 MG TAB PO SCH (21:44)
[2022-01-27] MEDS: CHOLECALCIFEROL 1,000 UNITS 25 MCG TAB PO SCH (21:44)
[2022-01-27] MEDS: buPROPion XL 300 MG TABCR PO SCH (21:45)
[2022-01-27] MEDS: FINASTERIDE 5 MG TAB PO SCH (22:27)
[2022-01-28] MEDS: hydroCHLOROthiazide 25 MG TAB PO SCH (07:40)
[2022-01-28] MEDS: POLYETHYLENE (MIRALAX) 17 GM PACK PO SCH (07:40)
[2022-01-28 08:12] LABS: Hematocrit (blood only) 34.3 % (40.1-51.0); Hemoglobin 11.9 g/dl (14.0-18.0); Mean Corpuscular Hemoglobin 31.3 pg (25.0-34.0); Mean Corpuscular Hgb Conc 34.7 g/dL (32.0-36.0); Mean Corpuscular Volume 90.3 fL (80.0-100.0); Mean Platelet Volume 9.8 fL (9.4-12.4); Platelet Count 106 K/uL (130-400); RDW Coefficient of Variation 12.7 % (11.5-14.5); RDW Standard Deviation 41.4 fL (36.4-46.3); White Blood Count 4.43 K/ul (4.8-10.8)
[2022-01-28 08:13] LABS: Basophils # (auto) 0.02 K/uL (0-0.2); Basophils % (auto) 0.5 %; Eosinophils # (auto) 0.07 K/uL (0-0.50); Eosinophils % (auto) 1.6 %; Immature Granulocytes # (auto) 0.02 K/uL (0.00-0.02); Immature Granulocytes % (auto) 0.5 %; Lymphocytes # (auto) 0.74 K/uL (1.2-3.4); Lymphocytes % (auto) 16.7 %; Monocytes # (auto) 0.49 K/uL (0.24-0.82); Monocytes % (auto) 11.1 %; Neutrophils # (auto) 3.09 K/uL (1.4-6.5); Neutrophils % (auto) 69.6 %; Platelet Estimate Decreased (Normal); Toxic Vacuolation 1+
--- NOTE | 2022-01-28 08:13 | Urology Progress Note ---
Date of Service January 28, 2022 Assessment & Plan (1) Pseudomonal bacteremia: (2) UTI (urinary tract infection), bacterial: Plan 76-year-old male admitted to the hospital with subjective fevers and chills. Urine culture and blood cultures positive for Pseudomonas. Continue ciprofloxacin. Recommend 2 total weeks of antibiotics. Patient is improving so does not need catheter Urology to follow while patient hospitalized. Stable from urologic standpoint to be discharged home. Patient does have an MRI scheduled in early February for work-up for elevated PSA and he would like to postpone this study. I will keep our follow-up in 1 month to ensure he is doing well after discharge from the hospital. Admission and Anticipated Discharge Date Admission Date: January 25, 2022 Subjective No acute issues overnight. Afebrile with stable vitals. Subjectively reports he continues to improve. No further dysuria. Review of Systems Review of Systems: 14 point review of systems negative outside of what is listed above in HPI Physical Exam Physical Exam: General: Alert and oriented, no acute distress HEENT: Normocephalic, mucous membranes moist Pulmonary: Nonlabored respirations Abdomen: Nondistended Extremities: Moves all 4 spontaneously Neuro: No gross deficits Skin: Warm, dry, no rashes noted Results & Data ([facility]) Vital Signs (Past 12 Hours) Vital Signs Temp Pulse Pulse Resp BP Pulse Ox O2 Del Method 01/28/22 07:25 36.7 C 61 20 142/81 H 97 Room Air 01/27/22 21:00 Room Air, CPAP 01/27/22 22:44 36.9 C 63 18 157/61 H 98 Room Air PG Care Time/CCT Total # of Minutes Spent Total Time Spent with Patient: Total time spent is greater than 50% in coordination of care (as documented) at patient's floor/unit and/or counseling patient: [place]oding [place] [address] Subseq Hosp Care Lvl 2 Patient Type Established Diagnoses Pseudomonal bacteremia R78.81; B96.5 UTI (urinary tract infection), bacterial N39.0; A49.9
[2022-01-28 08:14] LABS: Calcium 8.4 mg/dl (8.5-10.1); Creatinine Clr Calc Pharmacy 82.1 ml/min; Est GFR (Non-African American) 81.1 ml/min; Potassium 3.7 mmol/L (3.5-5.1)
[2022-01-28] MEDS ORDERED: LANTUS PER UNIT CHARGE SQ SCH (09:00)
[2022-01-28] MEDS: CIPROFLOXACIN 500 MG TAB PO SCH (09:04)
[2022-01-28] MEDS: lisinopril 10 MG TAB PO SCH (09:04)
[2022-01-28] MEDS: MULTIVITAMIN TAB PO SCH (09:05)
[2022-01-28] MEDS: ADVANCED PROBIOTIC 1250 MG CAPSULE PO SCH (09:05)
[2022-01-28] MEDS: ATORVASTATIN 40 MG TAB PO SCH (09:05)
[2022-01-28] MEDS: INSULIN ASPART PER UNIT SC SCH (09:10)
== END 2022-01-28 10:23 | disposition home or self-care (01) | DRG 872 ==
LOC: ED 04:19 → SUATTDRO 09:05 → 3W 09:05

== ENCOUNTER 2024-07-05 11:39 | Observation (INO) ==
--- NOTE | 2024-07-05 12:09 | Emergency Department Note ---
Impression & Plan Substernal chest pain, Ambulatory dysfunction ED Provider Note Name: SHIRA PORTILLO Age: 78 Sex: Male Arrives Via: Walk-In Informant: Patient ED Provider: Gabo Khalil MD Chief Complaint: Chest pain Impression: As per impressions above Medical Decision Makin-year-old gentleman with a known history of CAD with previous stenting arrives for evaluation of chest pain following significant exertion this morning. Lasted 10 to 15 minutes and has resolved. He arrives without significant chest pain though feeling a bit dyspneic at the moment. Examination and workup is relatively reassuring. I did obtain a CT of the head as he states for the last week or so he has been having increasing ambulatory dysfunction though will note that he admits that this is been ongoing for the last year but just seems to be worse recently. At this point there is no clear evidence of ACS but he will need hospitalization for cardiac rule out. Will defer further workup of ambulatory issues to hospitalist team if necessary to be done during hospitalized care. Has seen neurology as an outpatient regarding this. Triage/Nursing Notes reviewed by Me Differential:Cardiac ischemia, aortic dissection, pulmonary embolism, pneumothorax, pneumonia, pericarditis, myocarditis, esophageal rupture, GERD, cholecystitis, pancreatitis, musculoskeletal, as well as other pathologies. Vital Signs: reviewed and remarkable for HTN on arrival Interventions: Aspirin 324 mg p.o. Labs:ED labs Reviewed by me and remarkable for no significant abnormalities Imagin view chest x-ray as per my interpretation no infiltrate nor effusion appreciated. CT of the head without contrast no intracranial hemorrhage appreciated. As per radiologist no acute findings noted. EKG:As per my interpretation. Indication chest pain. Sinus rhythm at 75 bpm QTc of 482. There is a bifascicular block with a first-degree AV block noted as well. There is no overt ischemia or ectopy appreciated similar to EKG 01/26/2022. Cardiac/Tele Monitoring: Cardiac Monitoring: An Order was placed for continuous cardiac monitoring. The monitor shows a rate of 70 with a normal sinus rhythm. Consults:Discussed with Dr. Gonzales of the [facility] hospitalist service who will further evaluate Plan: Disposition:Hospitalization. Condition: Good History of Present Illness: 78-year-old gentleman arrives for evaluation of chest pain. Patient notes he was exercising this morning. Following exercise he developed substernal chest pressure. This lasted for 10 to 15 minutes before resolving. Associate with some shortness of breath and he notes he still feels a bit on the dyspneic side. Denies any significant shortness of breath though at the moment. No palpitations, nausea, vomiting, syncope, headache, neck pain, focal neurologic deficits, abdominal pain, fevers, chills or other concerning signs or symptoms. Patient does note though for the last several months he has had worsening brain fog and fatigue. Over the last week his weakness has worsened to the point where he is now requiring use of a cane as he is so unstable. They also got him a motorized wheelchair given how weak he has been. This is completely new for him. Denies any falls, trauma, injuries. Past Medical History:See Below Home Medications:See Below Allergies: No known drug allergy Vitals:Blood Pressure: 171/85, Pulse 76, RR 20, T 36.6C, O2 97% on RA Physical Exam: GENERAL: Patient is anxious appearing and in mild distress. RESPIRATORY: No dyspnea. Clear to auscultation and equal bilaterally. CARDIOVASCULAR: Regular rate and rhythm.No murmur appreciated. GASTROINTESTINAL: Abdomen soft, non-tender, no peritonitis. EXTREMITIES: Normal motion all extremities, no cyanosis, no edema. NEUROLOGIC: Alert and oriented. No focal neurologic deficits appreciated SKIN: No rash, no jaundice, no diaphoresis. PSYCH: Appropriate GCS: 15 ED Course: Times/Reassessments: Patient stable breathing comfortably and agreeable to hospitalization at this time Gabo Khalil MD Past Med/Surg History Problem List (Updated 07/05/24 @ 16:53 by Gabo Khalil MD) Ambulatory dysfunction (Acute) Substernal chest pain (Acute) Chest discomfort Chronic cerebral ischemia Mild cognitive impairment Mild cognitive impairment of uncertain or unknown etiology Class 1 obesity with serious comorbidity and body mass index (BMI) of 30.0 to 30.9 in adult Diabetes mellitus type 2 in obese Urinary incontinence, urge (Chronic) Anemia, mild (Acute) Hypertension (Chronic) Coronary artery disease (Chronic) [facility] S/p stent to diagonal of LAD in 2016 Carotid artery plaque (Chronic) Per 2013 carotid doppler (no evidence of significant flow reducing lesion) Cardiomyopathy (Chronic) EF 40-45%; [facility] Esc[facility] Peripheral arterial disease (Chronic) 11/2018 Right LE duplex scan- showed evidence of moderate (50-75%) hemodynamically significant stenosis in the right distal TONY 03/2019 Duplex LE vein scan= showed chronic DVT to right and left popliteal vein, left SSV showed mild reflux, deep venous reflux noted bilaterally - Multiple stents to LEs per patient Systolic heart failure (Chronic) Dyslipidemia (Chronic) Diabetic peripheral neuropathy associated with type 2 diabetes mellitus (Chronic) Enlarged prostate with lower urinary tract symptoms (LUTS) (Chronic) Depression (Chronic) RAHUL (obstructive sleep apnea) (Chronic) CPAP Lumbar degenerative disc disease (Chronic) Medical History Amputation toe Trigger finger Osteomyelitis of great toe of right foot now s/p amputation Headache History of COVID-27 Jul 2023 > resolved Hx of sepsis Treated at [facility] on 01/25/22. > no further issues Bladder stone hx Overactive bladder Multiple pulmonary nodules 06/2021 abnormal CTabd/pelvis, prior CT chest. Likely [place] and per Pulmonary 08/2021. No further monitoring needed Aortic atherosclerosis Basal cell carcinoma of skin of face removed Chronic anticoagulation Tinnitus on occasion Chronic venous insufficiency DVT (deep venous thrombosis) 1994 > LEGS > UNKNOWN ETIOLOGY > XARELTO Surgical History History of amputation of right great toe History of lithotripsy History of cystoscopy History of cataract surgery bilateral History of colonoscopy 07/2022 repeat 1 yr [place] teeth extracted H/O vascular surgery STENTS TO BILAT LEGS, UNSURE TOTAL NUMBER [id number] History of toe surgery 09/19/2019--[facility]> LEFT 2ND Hx of knee surgery LEFT > ARTHROSCOPIC Hx of hernia repair History of heart artery stent 05/2017 Stent placement > [facility] Family History Grandmother Diabetes Grandfather (Maternal) Stroke Myocardial infarction Mother , age 80 Heart disease Depression Father , age 93 No problems noted. Other Hypertension Denies family history of Ovarian cancer Prostate cancer Breast cancer Lung cancer Colorectal cancer Social History Smoking Status: Unknown if ever smoked Second Hand Exposure: Yes (in past); Do You Dip or Chew Tobacco: No; Hx Alcohol Use: Yes Alcohol type: beer Alcohol Intake Frequency: Monthly or Less Hx Substance Use: No Preferred Language: Faroese Communication Ability: Effective Visual Impairment: Limited Hearing Ability: Normal Second Cutter Required: No Beliefs That Will Affect Care: None marital status: Current Living Situation: Spouse current occupational status: retired 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, 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73 How many Children do You have: 3 Feels Safe at Home: Yes Childhood Exposure to Second-Hand Smoke: Yes Diet: regular caffeine: Yes Dental Care, Regularly: Yes Physical Activity Frequency: 5-6 Times per Week Seatbelt Use: always Sunscreen Use: Yes Assistive Devices: CPAP and Glasses Allergies Allergies Allergy/AdvReac Type Severity Reaction Status Date / Time No Known Drug Allergies Allergy Verified 07/05/24 15:28 Home Meds Home Medications Medication Instructions Recorded Confirmed multivitamin 1 tab PO QAM #0 tabs 10/09/13 07/05/24 psyllium husk 3.4 gram/5.4 gram 1 tbs PO HS 04/28/19 07/05/24 oral powder (Metamucil) lisinopril 10 mg tablet 10 mg PO BID #0 tabs 09/09/19 07/05/24 bisacodyl 5 mg tablet,delayed 10 mg PO DAILY PRN Constipation 04/24/23 07/05/24 release (Dulcolax (bisacodyl)) metoprolol succinate 25 mg 25 mg PO QAM 10/11/23 07/05/24 tablet,extended release 24 hr arthromax advanced 2 cap PO DAILY 12/19/23 06/25/24 brimonidine 0.2 %-timolol 0.5 % 1 drp ophthalmic (eye) BID 07/05/24 07/05/24 eye drops (Combigan) latanoprost 0.005 % eye drops 1 drp ophthalmic (eye) HS 07/05/24 07/05/24 Previous Rx's Medication Instructions Recorded finasteride 5 mg tablet 5 mg PO HS #90 tabs 05/18/23 memantine 10 mg tablet 10 mg PO BID #180 tabs 11/15/23 blood-glucose meter,continuous #1 ea 11/20/23 (FreeStyle Chris 3 [place]) rivaroxaban 10 mg tablet 10 mg PO HS #90 tabs 12/21/23 atorvastatin 20 mg tablet 20 mg PO HS #90 tabs 01/03/24 bupropion HCl 150 mg 24 hr tablet, 150 mg PO QAM depression #30 tabs 02/11/24 extended release tamsulosin 0.4 mg capsule (Flomax) 0.4 mg PO HS #90 caps 03/24/24 blood-glucose sensor (FreeStyle #2 ea 04/08/24 Chris 3 Plus Sensor device) metformin 500 mg tablet,extended 500 mg PO BID #60 tabs 04/10/24 release 24 hr hydrochlorothiazide 25 mg tablet 25 mg PO QAM #90 tabs 04/21/24 blood-glucose sensor (Dexcom G7 #3 ea 06/10/24 Sensor device) semaglutide 1 mg/dose (4 mg/3 mL) 1 mg (0.75 mL) subcut Q7D #3 mL 07/04/24 subcutaneous pen injector Results & Data (ED) Vital Signs Vital Signs - 24 hr 07/05/24 11:45 07/05/24 12:03 07/05/24 12:10 Temperature 36.6 C Temperature Source Temporal Artery Scan Pulse Rate 77 76 Pulse Rate [Apical] Pulse Rate from SpO2 Sensor Pulse Rhythm [Apical] Pulse Strength [Apical] Respiratory Rate 20 Respiratory Effort / Characteristics Respiratory Depth Normal Respiratory Pattern Blood Pressure 171/85 H Blood Pressure [Left Arm] Blood Pressure Mean 113 Blood Pressure Mean [Left Arm] Blood Pressure Position [Left Arm] Pulse Oximetry 97 99 Oxygen Delivery Method Room Air Room Air Sepsis Recent Fever Within 48 Hours No Sepsis New/Unexplained Change in Mental Status No Sepsis Action Taken by Nursing No Action Required 07/05/24 12:10 07/05/24 12:30 07/05/24 13:28 Temperature Temperature Source Pulse Rate 84 Pulse Rate [Apical] 76 77 Pulse Rate from SpO2 Sensor 84 Pulse Rhythm [Apical] Regular Irregular Pulse Strength [Apical] Normal Normal Respiratory Rate 18 16 20 Respiratory Effort / Characteristics Non-Labored Spontaneous Non-Labored Spontaneous Respiratory Depth Normal Normal Respiratory Pattern Regular Regular Blood Pressure Blood Pressure [Left Arm] 159/94 H 114/76 Blood Pressure Mean Blood Pressure Mean [Left Arm] 115 88 Blood Pressure Position [Left Arm] Semi-fowlers Semi-fowlers Pulse Oximetry 99 97 99 Oxygen Delivery Method Room Air Room Air Room Air Sepsis Recent Fever Within 48 Hours Sepsis New/Unexplained Change in Mental Status Sepsis Action Taken by Nursing 07/05/24 14:30 07/05/24 15:06 Temperature Temperature Source Pulse Rate Pulse Rate [Apical] 75 72 Pulse Rate from SpO2 Sensor Pulse Rhythm [Apical] Regular Pulse Strength [Apical] Normal Respiratory Rate 16 20 Respiratory Effort / Characteristics Non-Labored Spontaneous Respiratory Depth Normal Respiratory Pattern Regular Blood Pressure Blood Pressure [Left Arm] 158/95 H 150/102 H Blood Pressure Mean Blood Pressure Mean [Left Arm] 116 118 Blood Pressure Position [Left Arm] Semi-fowlers Pulse Oximetry 98 Oxygen Delivery Method Room Air Sepsis Recent Fever Within 48 Hours Sepsis New/Unexplained Change in Mental Status Sepsis Action Taken by Nursing Laboratory Data 07/05/24 12:00 07/05/24 12:00 Lab Results 07/05/24 07/05/24 07/05/24 Range/Units 12:00 12:20 12:32 WBC 7.91 (4.8-10.8) K/ul RBC 4.72 (4.70-6.10) M/uL Hgb 14.6 (14.0-18.0) g/dl Hct 41.2 L (42.0-52.0) % MCV 87.3 (80.0-100.0) fL MCH 30.9 (25.0-34.0) pg MCHC 35.4 (32.0-36.0) g/dL RDW Std Deviation 38.9 (36.4-46.3) fL RDW Coeff of Simona 12.3 (11.5-14.5) % Plt Count 172 (130-400) K/uL MPV 10.1 (9.4-12.4) fL Immature Gran % (Auto) 0.4 % Neut % (Auto) 75.3 % Lymph % (Auto) 16.8 % [place] % (Auto) 6.2 % Eos % (Auto) 0.9 % Baso % (Auto) 0.4 % Neut # (Auto) 5.96 (1.40-6.50) K/uL Lymph # (Auto) 1.33 (1.20-3.40) K/uL [place] # (Auto) 0.49 (0.11-0.59) K/uL Eos # (Auto) 0.07 (0.00-0.50) K/uL Baso # (Auto) 0.03 (0.00-0.20) K/uL Immature Gran # (Auto) 0.03 (0.01-0.20) K/uL ESR 9 (0-20) mm/hr Sodium 140 (136-145) mmol/L Potassium 3.6 (3.5-5.1) mmol/L Chloride 104 (98-107) mmol/L Carbon Dioxide 26 (21-32) mmol/L Anion Gap 10 (3-11) BUN 22 (6-23) mg/dl Creatinine 0.89 (0.6-1.4) mg/dl Est Cr Clr Drug Dosing Not Reportable eGFR 88.26 BUN/Creatinine Ratio 24.7 H (10-20) Glucose 155 H (70-99(Fasting)) mg/dl Calcium 9.7 (8.6-10.3) mg/dl Magnesium 1.9 (1.7-2.4) mg/dl Total Bilirubin 1.1 H (0.2-1.0) mg/dl Direct Bilirubin 0.2 (0-0.2) mg/dl AST 29 (13-39) U/L ALT 44 (7-52) U/L Alkaline Phosphatase 106 H (34-104) U/L Troponin I High Sens 9.2 (0-20) pg/ml C-Reactive Protein < 0.50 (0-0.5) mg/dl Total Protein 6.6 (6.0-8.3) gm/dl Albumin 4.3 (3.4-5.0) gm/dl TSH 2.951 (0.300-4.500) uIu/ml Urine Color Yellow Urine Appearance Clear (Clear) Urine pH 7.0 (4.5-7.5) Ur Specific [place] 1.016 (1.000-1.030) Urine Protein Negative (Negative) Urine Glucose (UA) Negative (Negative) Urine Ketones Negative (Negative) Urine Blood Negative (Negative) Urine Nitrite Negative (Negative) Urine Bilirubin Negative (Negative) Urine Urobilinogen Negative (Negative) Ur Leukocyte Esterase Negative (Negative) Lyme Disease Screen Negative (Negative) SARS-CoV-2 (PCR) NEGATIVE (Negative) Influenza Type A (PCR) Negative (Neg) Influenza Type B (PCR) Negative (Neg) RSV (RT-PCR) Negative (Neg) Administered Medications Discontinued Medications Aspirin (Aspirin 81 Mg Chew) 324 mg PO NOW STA Stop: 07/05/24 13:53 Last Admin: 07/05/24 13:55 Dose: 324 mg Documented By: MMN Imaging Data Radiologist's Impression: Chest X-Ray 07/05/24 12:07 XR chest 1V portable CLINICAL HISTORY: chest pain TECHNIQUE: Single frontal radiograph of the chest was obtained. Comparison: Comparison is made to chest radiograph 12/19/2023 FINDINGS: No lines and tubes are seen. Cardiomegaly is noted. The lungs are clear. No evidence of pleural effusion or pneumothorax. IMPRESSION: No acute chest disease. ACT 112: Negative or not required by law. Electronically signed by: Al Amado M.D. 07/05/2024 12:[address] 07/05/24 12:07 CT head/brain wo con CLINICAL HISTORY: confusion, ambulatory dysfunction Technique: Contiguous axial CT images of the head were acquired from the base of the skull to the vertex without intravenous contrast administration. Images were viewed in brain, subdural and bone windows. Automated dose lowering techniques and/or adjustment according to patient size were utilized for this exam. Comparison: None available at the time of this dictation. Findings: Areas of decreased attenuation are present in the periventricular and subcortical white matter bilaterally consistent with small vessel ischemic disease. Generalized cerebral atrophy with commensurate enlargement of the ventricles, sulci, and cisterns is also present. There is no acute intracranial hemorrhage or evidence of acute territorial infarction. No shift of the midline structures, mass effect, or extra-axial abnormalities are shown. Atherosclerotic calcifications are present in the intracranial segments of the internal carotid arteries. Left maxillary retention cyst and right maxillary sinus thickening are seen. The orbits appear normal. There are no acute fractures of the calvaria or scalp swelling. Impression: No acute intracranial hemorrhage, no evidence of acute territorial infarction or other acute intracranial disease process. ACT 112: Negative or not required by law. Electronically signed by: Al Amado M.D. 07/05/2024 1:20 PM Discharge Plan Visit Data Chief Complaint: Chest Pain Stated Complaint: CHEST PAIN, SOB ED Provider: Gabo Khalil Discharge Problem: Substernal chest pain, Ambulatory dysfunction Forms Stand Alone Forms: [facility] [employer] Prescriptions Prescriptions: No Action multivitamin Tablet 1 tab PO QAM Qty: 0 lisinopril 10 mg tablet 10 mg PO BID Qty: 0 finasteride 5 mg tablet 5 mg PO HS Qty: 90 3RF (DME) FreeStyle Chris 3 [place] Misc See Rx Instructions .Route Qty: 1 0RF Rx Instructions: use to continuously monitor blood sugar atorvastatin 20 mg tablet 20 mg PO HS Qty: 90 3RF bupropion HCl 150 mg tablet extended release 24 hr 150 mg PO QAM Qty: 30 2RF Rx Instructions: managed by [facility] tamsulosin [Flomax] 0.4 mg capsule 0.4 mg PO HS Qty: 90 3RF (DME) FreeStyle Chris 3 Plus Sensor Device See Rx Instructions .Route Qty: 2 11RF Hold Instructions: unable to get 3 and 3 Plus sensors Rx Instructions: change sensor Q15D metformin 500 mg tablet extended release 24 hr 500 mg PO BID Qty: 60 12RF hydrochlorothiazide 25 mg tablet 25 mg PO QAM Qty: 90 3RF (DME) Dexcom G7 Sensor Device See Rx Instructions .Route Qty: 3 5RF Rx Instructions: change sensor Q10D semaglutide 1 mg/dose (4 mg/3 mL) pen injector 1 mg subcut Q7D Qty: 3 5RF Patient Comments: Wednesdays > last dose 10/31/23 Rx Instructions: SUNDAYS Metamucil 3.4 gram/5.4 gram powder 1 tbs PO HS bisacodyl [Dulcolax (bisacodyl)] 5 mg tablet,delayed release (DR/EC) 10 mg PO DAILY PRN (Reason: Constipation ) Xarelto 10 mg tablet 10 mg PO HS Qty: 90 3RF arthromax advanced 2 cap PO DAILY metoprolol succinate 25 mg tablet extended release 24 hr 25 mg PO QAM memantine 10 mg tablet 10 mg PO BID Qty: 180 2RF latanoprost 0.005 % drops 1 drp ophthalmic (eye) HS brimonidine-timolol [Combigan] 0.2-0.5 % drops 1 drp ophthalmic (eye) BID Referrals Referrals: Ramiro Brandon DO [Primary Care Provider] -
[2024-07-05 12:37] LABS: Appearance Urine Clear (Clear); Bilirubin Urine Negative (Negative); Blood Urine Negative (Negative); Color Urine Yellow; Glucose Urine UA Negative (Negative); Ketones Urine Negative (Negative); Leukocyte Esterase Urine Negative (Negative); Nitrite Urine Negative (Negative); Protein Urine Negative (Negative); Specific Gravity Urine 1.016 (1.000-1.030); Urobilinogen Urine Negative (Negative)
[2024-07-05 12:38] LABS: Basophils # (auto) 0.03 K/uL (0.00-0.20); Basophils % (auto) 0.4 %; Eosinophils # (auto) 0.07 K/uL (0.00-0.50); Eosinophils % (auto) 0.9 %; Hematocrit (blood only) 41.2 % (42.0-52.0); Hemoglobin 14.6 g/dl (14.0-18.0); Immature Granulocytes # (auto) 0.03 K/uL (0.01-0.20); Immature Granulocytes % (auto) 0.4 %; Lymphocytes # (auto) 1.33 K/uL (1.20-3.40); Lymphocytes % (auto) 16.8 %; Mean Corpuscular Hemoglobin 30.9 pg (25.0-34.0); Mean Corpuscular Hgb Conc 35.4 g/dL (32.0-36.0); Mean Corpuscular Volume 87.3 fL (80.0-100.0); Mean Platelet Volume 10.1 fL (9.4-12.4); Monocytes # (auto) 0.49 K/uL (0.11-0.59); Monocytes % (auto) 6.2 %; Neutrophils # (auto) 5.96 K/uL (1.40-6.50); Neutrophils % (auto) 75.3 %; Platelet Count 172 K/uL (130-400); RDW Coefficient of Variation 12.3 % (11.5-14.5); RDW Standard Deviation 38.9 fL (36.4-46.3); Red Blood Count 4.72 M/uL (4.70-6.10); White Blood Count 7.91 K/ul (4.8-10.8)
--- NOTE | 2024-07-05 12:48 | XRay Report ---
XR chest 1V portable CLINICAL HISTORY: chest pain TECHNIQUE: Single frontal radiograph of the chest was obtained. Comparison: Comparison is made to chest radiograph 12/19/2023 FINDINGS: No lines and tubes are seen. Cardiomegaly is noted. The lungs are clear. No evidence of pleural effus ion or pneumothorax. IMPRESSION: No acute chest disease. ACT 112: Negative or not required by law. Electronically signed by: Al Amado M.D. 07/05/2024 12:46 PM
[2024-07-05 12:50] LABS: Alanine Aminotransferase 44 U/L (7-52); Albumin Level 4.3 gm/dl (3.4-5.0); Alkaline Phosphatase 106 U/L (34-104); Anion Gap 10 (3-11); Aspartate Aminotransferase 29 U/L (13-39); BUN Creatinine Ratio 24.7 (10-20); Bilirubin Direct 0.2 mg/dl (0-0.2); Bilirubin,Total 1.1 mg/dl (0.2-1.0); Blood Urea Nitrogen 22 mg/dl (6-23); C Reactive Protein < 0.50 mg/dl (0-0.5); Calcium 9.7 mg/dl (8.6-10.3); Carbon Dioxide 26 mmol/L (21-32); Chloride 104 mmol/L (98-107); Glucose 155 mg/dl (70-99(Fasting)); Magnesium 1.9 mg/dl (1.7-2.4); Potassium 3.6 mmol/L (3.5-5.1); Sodium 140 mmol/L (136-145); Total Protein 6.6 gm/dl (6.0-8.3)
[2024-07-05 12:56] LABS: Troponin I High Sensitivity 9.2 pg/ml (0-20)
[2024-07-05 13:05] LABS: Thyroid Stimulating Hormone 2.951 uIu/ml (0.300-4.500)
[2024-07-05 13:14] LABS: Influenza A virus by PCR Negative (Neg); Influenza B virus by PCR Negative (Neg); RSV by PCR Negative (Neg); SARS CoV2 RNA(COVID-19) Ceph NEGATIVE (Negative)
--- NOTE | 2024-07-05 13:22 | CT Scan Report ---
CT head/brain wo con CLINICAL HISTORY: confusion, ambulatory dysfunction Technique: Contiguous axial CT images of the head were acquired from the base of the skull to the paolo robert without intravenous contrast administration. Images were viewed in brain, subdural and [facility]. Automated dose lowering techniques and/or adjustment according to patient size were utilized for this exam. Comparison: None available at the time of this dictation. Findings: Areas of decreased attenuation are present in the periventricular and subcortical white matter bilate rally consistent with small vessel ischemic disease. Generalized cerebral atrophy with commensurate e nlargement of the ventricles, sulci, and cisterns is also present. There is no acute intracranial hem orrhage or evidence of acute territorial infarction. No shift of the midline structures, mass effect, or extra-axial abnormalities are shown. Atherosclerotic calcifications are present in the intracran ial segments of the internal carotid arteries. Left maxillary retention cyst and right maxillary sinus thickening are seen. The orbits appear normal . There are no acute fractures of the calvaria or scalp swelling. Impression: No acute intracranial hemorrhage, no evidence of acute territorial infarction or other acute intracra nial disease process. ACT 112: Negative or not required by law. Electronically signed by: Al Amado M.D. 07/05/2024 1:20 PM
[2024-07-05] MEDS: ASPIRIN 81 MG CHEW PO STA (13:55)
--- NOTE | 2024-07-05 14:43 | History & Physical Report ---
Date of Service July 05, 2024 Assessment & Plan (1) Chest discomfort: (2) Mild cognitive impairment of uncertain or unknown etiology: Plan Patient is a 78-year-old male with PMHx mild cognitive impairment, T2DM, urinary incontinence, HTN, CAD, cardiomyopathy,'s PAD, systolic heart failure, dyslipidemia, RAHUL, and BPH who presents to the ED today for sudden onset of chest discomfort during his cycling class. Given cardiac history, will r/o acute event. Patient also states that his other concern is his ongoing brain fog and ataxia. He has been having symptoms of brain fog and ataxia for approximately 1 year, however over the past week he has noticed worsening in the symptoms. CT read as unremarkable. #Chest discomfort/HTN/CAD/PAD/HFrEF, stable/HTN Catheterization 2016, stent in diagonal branch. Chest discomfort starting at 0815 during cycling, described as gas-like, without radiation, mild SOB with symptoms, all resolving within 10 to 15 minutes of rest.; History of cardiac disease; CAD, PAD, systolic heart failure. No current chest pain/discomfort, not a common occurrence for him. - Admit to tele - EKG NSR, with first-degree AV block, RBBB, LAFB stable findings, rate 75 bpm; Troponin 9.2, pending repeat - CBC grossly WNL, CMP with BUN/creatinine ratio 24.7, total bilirubin 1.1, alkaline phosphatase 106, no electrolyte abnormalities; TSH 2.95 - CXR without acute chest disease - Echo 09/2023- moderate concentric LVH, EF 40 to 45%, normal right ventricular size and function, borderline LAE, RA chamber normal, aortic valve thickening, AR, mild AV stenosis, dense posterior mitral annular calcification, mild MR, mild TR, RVSP 20 mmHg; pending repeat - Stress echo 09/2023- negative for ischemia, abnormal but thought to be from diaphragmatic attenuation, global wall with hypokinesis noted, EF 45 to 50% - Lipid panel 08/2023 cholesterol 91, LDL 33, HDL 52, triglycerides 70, on atorvastatin 20mg; pending repeat - ASA 324 given in ED; HCTZ, lisinopril , metoprolol, and continue ASA 81mg daily which he should be on anyway - Cardiology consulted - appreciate input + recs #Ataxia/brain fog Symptoms have been ongoing x 1 year, recently addressed at PCP visit 06/19/2024; was referred to [facility] neuro memory clinic and encouraged to continue memantin e; most recent neurology note from 11/15/2023. Does have recent amputation of right great toe she also believes has been in his balance, past week requiring him to use a cane for ambulatory assistance. TSH 2.951. MRI brain 03/2023 w/ mild microvascular ischemic changes, moderate ventriculomegaly again noted. H/o peripheral neuropathy. Most recent note PCP 06/11/2024 w/ extensive information regarding this. Will ensure pt wearing CPAP as this can exacerbate symptoms he is feeling currently. - CT head read as WNL, however, question of whether or not NPH is at play here given patient is having ataxia, worsening urinary incontinence, and some brain fog-> ventricles ? enlarged slightly out of proportion of atrophy - Check vitamin levels as well to ensure that there is a deficiency playing into these symptoms; pending vitamin D, mag, lyme - Memantine- continue; continue mood medications - Bupropion - PT/OT -with enlarged ventricles on CT head here and previous brain MRI, along with balance issues, visual issues, urinary issues--> could have NPH? Recommend outpt f/u with Neuro #T2DM H/o DMT2; on metformin twice daily as well as Ozempic every Sunday.; Patient has glucometer. He did recently switch back to Trulicity a month ago over concerns for Ozempic causing blindness (NAION) and has lost 6 kg since then. Perhaps this is contributing to his worsening brain fog over the last 2-3 weeks? He is now switching back to Ozempic as per Dr. Butler of Endocrine's phone message from 07/04 - Most recent A1C 04/2024 at 5.8% - SSI with target BSG range 110-140mg/dL, CF 30, carb ratio 10 - Hold metformin; BSG ACHS; Adjust regimen as needed #Depression- Stable, bupropion #RAHUL- CPAP; is cmpliant with this #BPH/Urinary incontinence/OAB- Finasteride, tamsulosin Dispo: Admit med/tele VTE Prophylaxis: Xarelto (On for DVTs) This document was dictated utilizing Drivy. Please excuse any grammatical errors that may be secondary to use of this software. Admission and Anticipated Discharge Date Admission Date: 07/05/2024 History of Present Illness Chief Complaint: Chest discomfort, ataxia Primary Care Provider: Ramiro Brandon DO Patient is a 78-year-old male with PMHx mild cognitive impairment, T2DM, urinary incontinence, HTN, CAD, cardiomyopathy,'s PAD, systolic heart failure, dyslipidemia, RAHUL, and BPH who presents to the ED today for sudden onset of chest discomfort during his cycling class. is present in room at time of visit and helps to provide history. On the morning of arrival at 0815, the patient was at his cycling class when he developed an onset of left-sided chest pressure, describing it as gas-like in nature. Once he rested, the pain went away but lasted approximately 10 to 15 minutes. At that time he also had shortness of breath which he has been noticing more frequently over the past week. He does not have a productive cough or a lingering cough. Patient does have a significant cardiac history, but upon evaluation in ED, troponin was found to be unremarkable at 9.2, and his EKG was without ischemic changes at 75 bpm. Patient states that his other concern is his ongoing brain fog and ataxia. He has been having symptoms of brain fog and ataxia for approximately 1 year, however over the past week he has noticed worsening in the symptoms. States that he usually can ambulate without assistive devices, but has been utilizing a cane for the past week given he feels off balance. Describing his brain fog as though his head is in the clouds and he just does not feel quite right. Does not have any neurological deficits, and reports that he has some weakness in his legs which he has noted because he cannot move the same amount of weight at the gym that he used to be able to. Patient has not reported any complete falls, but does find himself stumbling over the past 5 to 6 weeks which is a newer occurrence. States that he does not quite feel confused but again has "brain fog." Additional complaints of abnormalities in vision. Does follow with car installations supervisor who, per patient report, diagnosed the patient with glaucoma and started him on eyedrops. Patient describes his vision as zigzags when he tries to look at a specific object. The drops have not helped him significantly. CT of the head reveals no acute findings per read. Does have a history of urinary incontinence secondary to an overactive bladder which he follows neurology with. Has noted that over the past week, he has been having more frequent episodes of incontinence. Patient wears depends at baseline. Has had waxing and waning constipation, but last bowel movement on the night prior to arrival and was normal per patient. Overall, patient is denying current chest pain, shortness of breath, or palpitations. Also denying abdominal pain, N/V/D/C, numbness/tingling, fever/chills, or lightheadedness/dizziness. Took all a.m. medications. Please see Dr. Gonzales's attestation for adjustments/additions to treatment plan. Allergies Allergy/AdvReac Type Severity Reaction Status Date / Time No Known Drug Allergies Allergy Verified 07/05/24 15:28 Home Medications Medication Instructions Recorded Confirmed Type multivitamin 1 tab PO QAM #0 tabs 10/09/13 07/05/24 History psyllium husk 3.4 gram/5.4 gram 1 tbs PO HS 04/28/19 07/05/24 History oral powder (Metamucil) lisinopril 10 mg tablet 10 mg PO BID #0 tabs 09/09/19 07/05/24 History bisacodyl 5 mg tablet,delayed 10 mg PO DAILY PRN Constipation 04/24/23 07/05/24 History release (Dulcolax (bisacodyl)) finasteride 5 mg tablet 5 mg PO HS #90 tabs 05/18/23 07/05/24 Rx metoprolol succinate 25 mg 25 mg PO QAM 10/11/23 07/05/24 History tablet,extended release 24 hr memantine 10 mg tablet 10 mg PO BID #180 tabs 11/15/23 07/05/24 Rx blood-glucose meter,continuous #1 ea 11/20/23 06/25/24 Rx (FreeStyle Chris 3 [place]) arthromax advanced 2 cap PO DAILY 12/19/23 06/25/24 History rivaroxaban 10 mg tablet 10 mg PO HS #90 tabs 12/21/23 07/05/24 Rx atorvastatin 20 mg tablet 20 mg PO HS #90 tabs 01/03/24 07/05/24 Rx bupropion HCl 150 mg 24 hr tablet, 150 mg PO QAM depression #30 tabs 02/11/24 07/05/24 Rx extended release tamsulosin 0.4 mg capsule (Flomax) 0.4 mg PO HS #90 caps 03/24/24 07/05/24 Rx blood-glucose sensor (FreeStyle #2 ea 04/08/24 06/25/24 Rx Chris 3 Plus Sensor device) metformin 500 mg tablet,extended 500 mg PO BID #60 tabs 04/10/24 07/05/24 Rx release 24 hr hydrochlorothiazide 25 mg tablet 25 mg PO QAM #90 tabs 04/21/24 07/05/24 Rx blood-glucose sensor (Dexcom G7 #3 ea 06/10/24 06/25/24 Rx Sensor device) semaglutide 1 mg/dose (4 mg/3 mL) 1 mg (0.75 mL) subcut Q7D #3 mL 07/04/24 07/05/24 Rx subcutaneous pen injector brimonidine 0.2 %-timolol 0.5 % 1 drp ophthalmic (eye) BID 07/05/24 07/05/24 History eye drops (Combigan) latanoprost 0.005 % eye drops 1 drp ophthalmic (eye) HS 07/05/24 07/05/24 History Past Med/Surg History Problem List (Updated 07/05/24 @ 16:53 by Gabo Khalil MD) Ambulatory dysfunction (Acute) Substernal chest pain (Acute) Chest discomfort Chronic cerebral ischemia Mild cognitive impairment Mild cognitive impairment of uncertain or unknown etiology Class 1 obesity with serious comorbidity and body mass index (BMI) of 30.0 to 30.9 in adult Diabetes mellitus type 2 in obese Urinary incontinence, urge (Chronic) Anemia, mild (Acute) Hypertension (Chronic) Coronary artery disease (Chronic) [facility] S/p stent to diagonal of LAD in 2016 Carotid artery plaque (Chronic) Per 2013 carotid doppler (no evidence of significant flow reducing lesion) Cardiomyopathy (Chronic) EF 40-45%; [facility] Peripheral arterial disease (Chronic) 11/2018 Right LE duplex scan- showed evidence of moderate (50-75%) hemodynamically significant stenosis in the right distal TONY 03/2019 Duplex LE vein scan= showed chronic DVT to right and left popliteal vein, left SSV showed mild reflux, deep venous reflux noted bilaterally - Multiple stents to LEs per patient Systolic heart failure (Chronic) Dyslipidemia (Chronic) Diabetic peripheral neuropathy associated with type 2 diabetes mellitus (Chronic) Enlarged prostate with lower urinary tract symptoms (LUTS) (Chronic) Depression (Chronic) RAHUL (obstructive sleep apnea) (Chronic) CPAP Lumbar degenerative disc disease (Chronic) Medical History Amputation toe Trigger finger Osteomyelitis of great toe of right foot now s/p amputation Headache History of COVID-27 Jul 2023 > resolved Hx of sepsis Treated at [facility] on 01/25/22. > no further issues Bladder stone hx Overactive bladder Multiple pulmonary nodules 06/2021 abnormal CTabd/pelvis, prior CT chest. Likely Hamartoma and per Pulmonary 08/2021. No further monitoring needed Aortic atherosclerosis Basal cell carcinoma of skin of face removed Chronic anticoagulation Tinnitus on occasion Chronic venous insufficiency DVT (deep venous thrombosis) 1994 > LEGS > UNKNOWN ETIOLOGY > XARELTO Surgical History History of amputation of right great toe History of lithotripsy History of cystoscopy History of cataract surgery bilateral History of colonoscopy 07/2022 repeat 1 yr [place] teeth extracted H/O vascular surgery STENTS TO BILAT LEGS, UNSURE TOTAL NUMBER [id number] History of toe surgery 09/19/2019--[facility]> LEFT 2ND Hx of knee surgery LEFT > ARTHROSCOPIC Hx of hernia repair History of heart artery stent 05/2017 Stent placement > [facility] Family History Grandmother Diabetes Grandfather (Maternal) Stroke Myocardial infarction Mother , age 80 Heart disease Depression Father , age 93 No problems noted. Other Hypertension Denies family history of Ovarian cancer Prostate cancer Breast cancer Lung cancer Colorectal cancer Social History Smoking Status: Never smoker Second Hand Exposure: No; Do You Dip or Chew Tobacco: No; Tobacco Cessation Education Requested by Patient: No Hx Alcohol Use: Yes Alcohol type: wine Alcohol Intake Frequency: Monthly or Less Hx Substance Use: No Preferred Language: Venezuelan Communication Ability: Effective Visual Impairment: Limited Hearing Ability: Normal Stenocaptioner Required: No Beliefs That Will Affect Care: None marital status: Current Living Situation: Spouse current occupational status: retired 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, 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73 How many Children do You have: 3 Other Information That Helps Us Care for You: No Feels Safe at Home: Yes Safety Concerns: Feels Safe At This Time Childhood Exposure to Second-Hand Smoke: Yes Diet: regular caffeine: Yes Dental Care, Regularly: Yes Physical Activity Frequency: 5-6 Times per Week Seatbelt Use: always Sunscreen Use: Yes Assistive Devices: Cane and CPAP Assistive Devices Comment: cane Review of Systems Review of Systems: All systems reviewed & are unremarkable except as noted in Subjective Physical Exam Physical Exam: General: No acute distress Skin: Warm and dry; skin tag below L eye Head: Normocephalic, atraumatic Eyes: PERRL, conjunctivae clear, sclera non-icteric; EOM intact; aggressive blinking tic at times ENT: External ear and ear canal without swelling; nose atraumatic; good den tition, tongue normal appearance Neck: Supple, no LAD Cardio: RRR, no M/G/R, S1 and S2 normal Resp: No respiratory distress, Lungs CTA in all lobes bilaterally, no wheezes, rales, or rhonchi Abdomen: Soft, symmetric, very mild tenderness lower left quadrant; no masses or hepatosplenomegaly; Bowel sounds normoactive MSK: No deformities, full ROM throughout; pulses palpable and equal; no edema. Neuro: Awake, alert; Muscle strength 5/5 bilaterally in UE/LE; Sensation intact bilaterally; CN grossly intact Psych: Appropriate mood and affect; good judgement and insight. is present in room at time of visit. Results & Data Results & Data Vital Signs (Past 12 Hours) Vital Signs Temp Pulse Pulse Resp BP BP Pulse Ox 07/05/24 13:28 77 20 114/76 99 07/05/24 12:30 84 16 97 07/05/24 12:10 76 18 159/94 H 99 07/05/24 12:10 99 07/05/24 12:03 76 07/05/24 11:45 36.6 C 77 20 171/85 H 97 O2 Del Method 07/05/24 13:28 Room Air 07/05/24 12:30 Room Air 07/05/24 12:10 Room Air 07/05/24 12:10 Room Air 07/05/24 12:03 07/05/24 11:45 Room Air Laboratory Results 07/05/24 07/05/24 07/05/24 12:32 12:20 12:00 WBC 7.91 RBC 4.72 Hgb 14.6 Hct 41.2 L MCV 87.3 MCH 30.9 MCHC 35.4 RDW Std Deviation 38.9 RDW Coeff of Simona 12.3 Plt Count 172 MPV 10.1 Immature Gran % (Auto) 0.4 Neut % (Auto) 75.3 Lymph % (Auto) 16.8 Clark % (Auto) 6.2 Eos % (Auto) 0.9 Baso % (Auto) 0.4 Neut # (Auto) 5.96 Lymph # (Auto) 1.33 Clark # (Auto) 0.49 Eos # (Auto) 0.07 Baso # (Auto) 0.03 Immature Gran # (Auto) 0.03 ESR 9 Sodium 140 Potassium 3.6 Chloride 104 Carbon Dioxide 26 Anion Gap 10 BUN 22 Creatinine 0.89 Est Cr Clr Drug Dosing Not Reportable eGFR 88.26 BUN/Creatinine Ratio 24.7 H Glucose 155 H Calcium 9.7 Magnesium 1.9 Total Bilirubin 1.1 H Direct Bilirubin 0.2 AST 29 ALT 44 Alkaline Phosphatase 106 H Troponin I High Sens 9.2 C-Reactive Protein < 0.50 Total Protein 6.6 Albumin 4.3 TSH 2.951 Urine Color Yellow Urine Appearance Clear Urine pH 7.0 Ur Specific Pioneer 1.016 Urine Protein Negative Urine Glucose (UA) Negative Urine Ketones Negative Urine Blood Negative Urine Nitrite Negative Urine Bilirubin Negative Urine Urobilinogen Negative Ur Leukocyte Esterase Negative SARS-CoV-2 (PCR) NEGATIVE Influenza Type A (PCR) Negative Influenza Type B (PCR) Negative RSV (RT-PCR) Negative Diagnostic Findings Chest X-Ray 07/05/24 12:07 XR chest 1V portable CLINICAL HISTORY: chest pain TECHNIQUE: Single frontal radiograph of the chest was obtained. Comparison: Comparison is made to chest radiograph 12/19/2023 FINDINGS: No lines and tubes are seen. Cardiomegaly is noted. The lungs are clear. No evidence of pleural effusion or pneumothorax. IMPRESSION: No acute chest disease. ACT 112: Negative or not required by law. Electronically signed by: Al Amado M.D. 07/05/2024 12:[address] 07/05/24 12:07 CT head/brain wo con CLINICAL HISTORY: confusion, ambulatory dysfunction Technique: Contiguous axial CT images of the head were acquired from the base of the skull to the vertex without intravenous contrast administration. Images were viewed in brain, subdural and bone windows. Automated dose lowering techniques and/or adjustment according to patient size were utilized for this exam. Comparison: None available at the time of this dictation. Findings: Areas of decreased attenuation are present in the periventricular and subcortical white matter bilaterally consistent with small vessel ischemic disease. Generalized cerebral atrophy with commensurate enlargement of the ventricles, sulci, and cisterns is also present. There is no acute intracranial hemorrhage or evidence of acute territorial infarction. No shift of the midline structures, mass effect, or extra-axial abnormalities are shown. Atherosclerotic calcifications are present in the intracranial segments of the internal carotid arteries. Left maxillary retention cyst and right maxillary sinus thickening are seen. The orbits appear normal. There are no acute fractures of the calvaria or scalp swelling. Impression: No acute intracranial hemorrhage, no evidence of acute territorial infarction or other acute intracranial disease process. ACT 112: Negative or not required by law. Electronically signed by: Al Amado M.D. 07/05/2024 1:20 PM Medications Administered ASA 324mg po ECG Additional Comments: Sinus rhythm, first-degree AV block, RBBB, LAFB 75 bpm, NE 284, QRS 152, QT/QTc 432/482, PRT 81/-80/86 Code Status & VTE Plan Code Status DNR/DNI VTE Prophylaxis Plan VTE Prophylaxis will be ordered: Yes Supervising Physician Co-Signing Physician Notes PA Supervision Note: I personally saw and examined the patient. I verified all dumont points and agree with YUN Del Rio with the following exceptions and/or additions: S-Pt here with 10-15 minutes of chest pain that he says came on after he returned home from his cycling class and went away on its own. He was getting changed to go out to breakfast when the pain came on. He did report feeling a little more SOB today as well. He is also very concerned about his worsening "brain fog" and difficulty with ambulation over the last year or more. O- Vitals reviewed Gen: [AAOx3, NAD] HEENT: [anicteric sclerae, EOMI] CV: [RRR no mgr nl S1S2] Pulm: [CTAB no wcr] Ext: [no edema] Skin: [no rashes, warm/dry] A/P-78 yo male here with atypical chest pain but with h/o CAD s/p stents. Serial trops, ECHO, consult Cardio here Just had nuc stress 9 months ha neg for ischemia so not likely any new development Could be GI related As for brain fog, suggest second opinion at [facility] as he is getting arranged through PCP. He has had workup here already for cognitive issues and saw Neuropsych. But question NPH as above? f/u with Neuro PG Care Time/CCT Total # of Minutes Spent Total Time Spent with Patient: Total time spent is greater than 50% in coordination of care (as documented) at patient's floor/unit and/or counseling patient: Coding Level of Care Code 11034 INT INP/OBS CARE 3/75MIN Diagnoses Chest discomfort R07.89 Mild cognitive impairment of uncertain or unknown etiology G31.84
--- NOTE | 2024-07-05 16:46 | Electrocardiogram Report ---
Test Reason : Blood Pressure : */* mmHG Vent. Rate : 75 BPM Atrial Rate : 75 BPM P-R Int : 284 ms QRS Dur : 152 ms QT Int : 432 ms P-R-T Axes : 81 -80 86 degrees QTcB Int : 482 ms Sinus rhythm with 1st degree A-V block Right bundle branch block Left anterior fascicular block Bifascicular block Abnormal ECG When compared with ECG of 26-Jan-2022 08:34, Nonspecific T wave abnormality no longer evident in Inferior leads T wave inversion now evident in Anterolateral leads Confirmed by Lyric Li (Sera) on 07/05/2024 4:46:00 PM Referred By: REFERRED SELF Confirmed By: Lyric Li
[2024-07-05] MEDS ORDERED: GLUCOSE 10 TAB/TUBE PO PRN (18:05)
[2024-07-05] MEDS ORDERED: DEXTROSE 50% 50 ML SYRINGE IV PRN (18:05)
[2024-07-05] MEDS ORDERED: CARBOHYDRATES FOR HYPOGLYCEMIA PO PRN (18:05)
[2024-07-05] MEDS ORDERED: bisacodyL 5 MG TABEC PO PRN (18:05)
[2024-07-05] MEDS ORDERED: GLUCOSE 40% GEL 15 GM TUBE PO PRN (18:05)
[2024-07-05] MEDS ORDERED: GLUCAGON FOR INJ 1 MG VIAL SQ PRN (18:05)
[2024-07-05] MEDS: INSULIN ASPART PER UNIT CHARGE SC SCH (19:03)
[2024-07-05 19:38] VITALS: RESP 18
[2024-07-05] MEDS: PSYLLIUM or GUAR GUM FIBER 4GM PACKET PO SCH (20:20)
[2024-07-05] MEDS: MEMANTINE HCL 10 MG TAB PO SCH (20:21)
[2024-07-05] MEDS: lisinopril 10 MG TAB PO SCH (20:21)
[2024-07-05] MEDS: FINASTERIDE 5 MG TAB PO SCH (20:22)
[2024-07-05] MEDS: ATORVASTATIN 20 MG TAB PO SCH (20:22)
[2024-07-05] MEDS: RIVAROXABAN 10 MG TABLET PO SCH (20:23)
[2024-07-05] MEDS: TAMSULOSIN HCL 0.4 MG CAP PO SCH (20:23)
[2024-07-05] MEDS: LATANOPROST 0.005% OP SOLN 2.5 ML BTL OP SCH (20:55)
[2024-07-06 04:56] LABS: Hematocrit (blood only) 39.1 % (42.0-52.0); Hemoglobin 13.6 g/dl (14.0-18.0); Mean Corpuscular Hemoglobin 30.8 pg (25.0-34.0); Mean Corpuscular Hgb Conc 34.8 g/dL (32.0-36.0); Mean Corpuscular Volume 88.7 fL (80.0-100.0); Mean Platelet Volume 10.1 fL (9.4-12.4); Platelet Count 154 K/uL (130-400); RDW Coefficient of Variation 12.4 % (11.5-14.5); RDW Standard Deviation 39.8 fL (36.4-46.3); Red Blood Count 4.41 M/uL (4.70-6.10); White Blood Count 7.48 K/ul (4.8-10.8)
[2024-07-06 05:14] LABS: BUN Creatinine Ratio 20.4 (10-20); Creatinine Clr Calc Pharmacy 65.1 ml/min; Magnesium 2.1 mg/dl (1.7-2.4); Potassium 3.3 mmol/L (3.5-5.1)
[2024-07-06] MEDS: ASPIRIN 81 MG ECTAB PO SCH (09:29)
[2024-07-06] MEDS: hydroCHLOROthiazide 25 MG TAB PO SCH (09:29)
[2024-07-06] MEDS: buPROPion XL 150 MG TABCR PO SCH (09:29)
[2024-07-06] MEDS: POTASSIUM CHLORIDE CRTAB 20 MEQ TABCR PO STA (09:29)
[2024-07-06] MEDS: METOPROLOL SUCC 25MG EXT REL TAB PO SCH (09:30)
[2024-07-06] MEDS: MULTIVITAMIN TAB PO SCH (09:30)
--- NOTE | 2024-07-06 10:31 | Cardiology Consultation ---
Date of Consultation July 06, 2024 Assessment & Plan (1) Chest discomfort: (2) Abnormal ECG: (3) Asymptomatic LV dysfunction: (4) Mild cognitive impairment of uncertain or unknown etiology: (5) Diabetes mellitus type 2 in obese: Plan His ECG and ECHO are identicical to the ones recently done by Dr. Villa. Given he had a nuclear stress in the last year, would not repeat stress testing at this time. The CP did not appear in an unstable fashion and has not reoccurred. I reviewed with him follow up with Dr. Villa-if the CP returns, would advocate more for diagnostic LHC to define. He will review this with him. I think he is stable for DC at this time. Thank you for allowing me to participate in the very nice gentleman. I am happy to see him in consultation again if he returns to [facility] in the future. History of Present Illness Reason for Consultation: Mr. Mendieta is a very nice 78y/o gentleman with a hx of prior mostly branch vessel CAD, s/p diagonal PTCA back in 2016, with only mild disease elsewhere, who is know to Dr. Pa Villa and follows regularly with him for PAD, hx chronic DVT on Xarelto 10mg (prevention dose). He developed an episode of atypical CP, felt like gas which occurred shortly after doing is regular bicycle exercise x 1 hour yesterday. This CP was short lived and resolved on its own. He underwent a prior nuclear Lexiscan stress less than a year ago which was normal. Attending Physician: Bonilla Bond Allergies Allergy/AdvReac Type Severity Reaction Status Date / Time No Known Drug Allergies Allergy Verified 07/05/24 15:28 Home Medications Medication Instructions Recorded Confirmed Type multivitamin 1 tab PO QAM #0 tabs 10/09/13 07/05/24 History psyllium husk 3.4 gram/5.4 gram 1 tbs PO HS 04/28/19 07/05/24 History oral powder (Metamucil) lisinopril 10 mg tablet 10 mg PO BID #0 tabs 09/09/19 07/05/24 History bisacodyl 5 mg tablet,delayed 10 mg PO DAILY PRN Constipation 04/24/23 07/05/24 History release (Dulcolax (bisacodyl)) finasteride 5 mg tablet 5 mg PO HS #90 tabs 05/18/23 07/05/24 Rx metoprolol succinate 25 mg 25 mg PO QAM 10/11/23 07/05/24 History tablet,extended release 24 hr memantine 10 mg tablet 10 mg PO BID #180 tabs 11/15/23 07/05/24 Rx blood-glucose meter,continuous #1 ea 11/20/23 06/25/24 Rx (FreeStyle Chris 3 [place]) arthromax advanced 2 cap PO DAILY 12/19/23 06/25/24 History rivaroxaban 10 mg tablet 10 mg PO HS #90 tabs 12/21/23 07/05/24 Rx atorvastatin 20 mg tablet 20 mg PO HS #90 tabs 01/03/24 07/05/24 Rx bupropion HCl 150 mg 24 hr tablet, 150 mg PO QAM depression #30 tabs 02/11/24 07/05/24 Rx extended release tamsulosin 0.4 mg capsule (Flomax) 0.4 mg PO HS #90 caps 03/24/24 07/05/24 Rx blood-glucose sensor (FreeStyle #2 ea 04/08/24 06/25/24 Rx Chris 3 Plus Sensor device) metformin 500 mg tablet,extended 500 mg PO BID #60 tabs 04/10/24 07/05/24 Rx release 24 hr hydrochlorothiazide 25 mg tablet 25 mg PO QAM #90 tabs 04/21/24 07/05/24 Rx blood-glucose sensor (Dexcom G7 #3 ea 06/10/24 06/25/24 Rx Sensor device) semaglutide 1 mg/dose (4 mg/3 mL) 1 mg (0.75 mL) subcut Q7D #3 mL 07/04/24 07/05/24 Rx subcutaneous pen injector brimonidine 0.2 %-timolol 0.5 % 1 drp ophthalmic (eye) BID 07/05/24 07/05/24 History eye drops (Combigan) latanoprost 0.005 % eye drops 1 drp ophthalmic (eye) HS 07/05/24 07/05/24 History Patient History Medical History Amputation toe Trigger finger Osteomyelitis of great toe of right foot now s/p amputation Headache History of COVID-27 Jul 2023 > resolved Hx of sepsis Treated at [facility] on 01/25/22. > no further issues Bladder stone hx Overactive bladder Multiple pulmonary nodules 06/2021 abnormal CTabd/pelvis, prior CT chest. Likely Hamartoma and per Pulmonary 08/2021. No further monitoring needed Aortic atherosclerosis Basal cell carcinoma of skin of face removed Chronic anticoagulation Tinnitus on occasion Chronic venous insufficiency DVT (deep venous thrombosis) 1994 > LEGS > UNKNOWN ETIOLOGY > XARELTO Surgical History History of amputation of right great toe History of lithotripsy History of cystoscopy History of cataract surgery bilateral History of colonoscopy 07/2022 repeat 1 yr [place] teeth extracted H/O vascular surgery STENTS TO BILAT LEGS, UNSURE TOTAL NUMBER [id number] History of toe surgery 09/19/2019--[place]> LEFT 2ND Hx of knee surgery LEFT > ARTHROSCOPIC Hx of hernia repair History of heart artery stent 05/2017 Stent placement > [facility] Family History Grandmother Diabetes Grandfather (Maternal) Stroke Myocardial infarction Mother , age 80 Heart disease Depression Father , age 93 No problems noted. 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, 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73 How many Children do You have: 3 Feels Safe at Home: Yes Childhood Exposure to Second-Hand Smoke: Yes Diet: regular caffeine: Yes Dental Care, Regularly: Yes Physical Activity Frequency: 5-6 Times per Week Seatbelt Use: always Sunscreen Use: Yes Assistive Devices: Cane and CPAP Review of Systems Review of Systems: All systems reviewed & are unremarkable except as noted in HPI & below Results & Data Vital Signs (Past 12 Hours) Vital Signs Temp Pulse Pulse Pulse Resp BP Pulse Ox 07/06/24 07:36 36.4 C 63 18 143/89 H 98 07/06/24 07:02 61 07/06/24 03:29 36.5 C 67 18 147/73 H 95 07/06/24 00:07 36.6 C 68 18 174/84 H 98 07/05/24 22:45 O2 Del Method 07/06/24 07:36 CPAP 07/06/24 07:02 07/06/24 03:29 CPAP 07/06/24 00:07 Room Air 07/05/24 22:45 CPAP Laboratory Results Abnormal lab results 07/05/24 07/05/24 07/05/24 Range/Units 12:00 18:43 20:10 RBC (4.70-6.10) M/uL Hgb (14.0-18.0) g/dl Hct 41.2 L (42.0-52.0) % Potassium (3.5-5.1) mmol/L BUN/Creatinine Ratio 24.7 H (10-20) Glucose 155 H (70-99(Fasting)) mg/dl POC Glucose 101 H 158 H (70-99) mg/dl Total Bilirubin 1.1 H (0.2-1.0) mg/dl Alkaline Phosphatase 106 H (34-104) U/L 07/06/24 07/06/24 Range/Units 03:48 08:21 RBC 4.41 L (4.70-6.10) M/uL Hgb 13.6 L (14.0-18.0) g/dl Hct 39.1 L (42.0-52.0) % Potassium 3.3 L (3.5-5.1) mmol/L BUN/Creatinine Ratio 20.4 H (10-20) Glucose (70-99(Fasting)) mg/dl POC Glucose 111 H (70-99) mg/dl Total Bilirubin (0.2-1.0) mg/dl Alkaline Phosphatase (34-104) U/L Medications Administered Current Inpatient Medications Aspirin (Aspirin 81 Mg Ectab) [address] [facility] Stop: 08/05/24 08:59 Last Admin: 07/06/24 09:29 Dose: 81 mg Atorvastatin Calcium (Atorvastatin 20 Mg Tab) 20 mg PO HS [facility] Stop: 08/04/24 20:59 Last Admin: 07/05/24 20:22 Dose: 20 mg Bisacodyl (Bisacodyl 5 Mg Tabec) 10 mg PO DAILY PRN PRN Reason: Constipation Stop: 08/04/24 18:04 Bupropion HCl (Bupropion Xl 150 Mg Tabcr) 150 mg PO QAM [facility] Stop: 08/05/24 08:59 Last Admin: 07/06/24 09:29 Dose: 150 mg Dextrose (Dextrose 50% 50 Ml Syringe) 25 - 50 ml IV UD PRN; Protocol PRN Reason: Hypoglycemia Protocol Stop: 08/04/24 18:04 Finasteride (Finasteride 5 Mg Tab) 5 mg PO HS [facility] Stop: 08/04/24 20:59 Last Admin: 07/05/24 20:22 Dose: 5 mg Glucagon (Glucagon For Inj 1 Mg Vial) 1 mg SQ UD PRN; Protocol PRN Reason: Hypoglycemia Protocol Stop: 08/04/24 18:04 Glucose (Glucose 40% Gel 15 Gm Tube) 15 - 30 gm PO UD PRN; Protocol PRN Reason: Hypoglycemia Protocol Stop: 08/04/24 18:04 Glucose (Glucose 10 Tab/Tube) 4 - 8 tab PO UD PRN; Protocol PRN Reason: Hypoglycemia Protocol Stop: 08/04/24 18:04 Hydrochlorothiazide (Hydrochlorothiazide 25 Mg Tab) 25 mg PO QAM [facility] Stop: 08/05/24 08:59 Last Admin: 07/06/24 09:29 Dose: 25 mg Insulin Aspart (Insulin Aspart Per Unit Charge) 0 units SC ACHS [facility] Stop: 08/04/24 18:04 Last Admin: 07/06/24 09:28 Dose: 5 units Latanoprost (Latanoprost 0.005% Op Soln 2.5 Ml Btl) 1 drops OP HS [facility] Stop: 08/04/24 20:59 Last Admin: 07/05/24 20:55 Dose: 1 drops Lisinopril (Lisinopril 10 Mg Tab) 10 mg PO BID [facility] Stop: 08/04/24 20:59 Last Admin: 07/06/24 09:29 Dose: 10 mg Memantine (Memantine Hcl 10 Mg Tab) 10 mg PO BID [facility] Stop: 08/04/24 20:59 Last Admin: 07/06/24 09:29 Dose: 10 mg Metoprolol Succinate (Metoprolol Succ 25mg Ext Rel Tab) 25 mg PO QAM [facility] Stop: 08/05/24 08:59 Last Admin: 07/06/24 09:30 Dose: 25 mg Miscellaneous (Carbohydrates For Hypoglycemia ) 15 - 30 gm PO UD PRN PRN Reason: Hypoglycemia Protocol Stop: 08/04/24 18:04 Miscellaneous (Brimonidine-Timolol [Combigan] 0.2-0.5 % Drops--Order Awaiting Action) 1 each N/A QS ADRIANNA Stop: 08/05/24 00:00 Last Admin: 07/06/24 07:26 Dose: Not Given Multivitamins (Multivitamin Tab) 1 tab PO QAM [facility] Stop: 08/05/24 08:59 Last Admin: 07/06/24 09:30 Dose: 1 tab Psyllium Hydrophilic Mucilloid (Psyllium Or Guar Gum Fiber 4gm Packet) 4 gm PO [facility] Stop: 08/04/24 20:59 Last Admin: 07/05/24 20:20 Dose: 4 gm Rivaroxaban (Rivaroxaban 10 Mg Tablet) 10 mg PO HS [facility] Stop: 08/04/24 20:59 Last Admin: 07/05/24 20:23 Dose: 10 mg Tamsulosin HCl (Tamsulosin Hcl 0.4 Mg Cap) 0.4 mg PO HS [facility] Stop: 08/04/24 20:59 Last Admin: 07/05/24 20:23 Dose: 0.4 mg
[2024-07-06 11:26] VITALS: BP 119/73; TEMP 97.5; O2SAT 97
--- NOTE | 2024-07-06 13:37 | Communication Note ---
Date of Service: July 06, 2024 By CMS guidelines, a determination that the admission or continued stay is not medically necessary has been made by a member of the UR committee and bobby millan for this hospital stay, therefore a Code 44 will be completed and the Inpatient admission will be changed to outpatient.
--- NOTE | 2024-07-06 13:49 | Discharge Summary ---
Discharge Summary Date of Service July 06, 2024 Principal Dx & Hospital Course #1 = Principal Diagnosis (1) Chest discomfort: (2) Mild cognitive impairment of uncertain or unknown etiology: Plan Patient is a 78-year-old male with PMHx mild cognitive impairment, T2DM, urinary incontinence, HTN, CAD, cardiomyopathy,'s PAD, systolic heart failure, dyslipidemia, RAHUL, and BPH who presents to the ED 07/06 for sudden onset of milly st discomfort during his cycling class. Patient also states that his other concern is his ongoing brain fog and ataxia. He has been having symptoms of brain fog and ataxia for approximately 1 year, however over the past week he has noticed worsening in the symptoms. CT read as unremarkable. #Chest discomfort/HTN/CAD/PAD/HFrEF, stable/HTN Catheterization 2016, stent in diagonal branch. Chest discomfort starting at 0815 during cycling, described as gas-like, without radiation, mild SOB with symptoms, all resolving within 10 to 15 minutes of rest. History of cardiac disease; CAD, PAD, systolic heart failure. - EKG NSR, with first-degree AV block, RBBB, LAFB stable findings, rate 75 bpm; Troponin 9.2, pending repeat - CBC grossly WNL, CMP with BUN/creatinine ratio 24.7, total bilirubin 1.1, alkaline phosphatase 106, no electrolyte abnormalities; TSH 2.95 - CXR without acute chest disease - Echo 07/06: LV normal in size. moderate LVH. LVEF 40-45%. septal dyskinesis. mild global hypokinesis. grade 1 diastolic dysfunction. aortic valve sclerosis, mild. - Stress echo 09/2023- negative for ischemia, abnormal but thought to be from diaphragmatic attenuation, global wall with hypokinesis noted, EF 45 to 50% - Lipid panel 08/2023 cholesterol 91, LDL 33, HDL 52, triglycerides 70, on atorvastatin 20mg - Continue outpatient medications: HCTZ, lisinopril , metoprolol, and ASA 81mg daily - Cardiology consulted - recommend to follow up outpatient with his cap jewel plate assembler. #Ataxia/brain fog Symptoms have been ongoing x 1 year, recently addressed at PCP visit 06/19/2024; was referred to [facility] neuro memory clinic and encouraged to continue memantine; most recent neurology note from 11/15/2023. Does have recent amputation of right great toe she also believes has been in his balance, past week requiring him to use a cane for ambulatory assistance. TSH 2.951. MRI brain 03/2023 w/ mild microvascular ischemic changes, moderate ventriculomegaly again noted. H/o peripheral neuropathy. Will ensure pt wearing CPAP as this can exacerbate symptoms he is feeling currently. - CT head read as WNL, however, question of whether or not NPH is at play here given patient is having ataxia, worsening urinary incontinence, and some brain fog-> ventricles ? enlarged slightly out of proportion of atrophy - Cvitamin levels WNL, Lyme negative, COVID negative. - Memantine- continue -continue Bupropion -with enlarged ventricles on CT head here and previous brain MRI, along with balance issues, visual issues, urinary issues--> could have NPH? Recommend outpt f/u with Neuro #T2DM H/o DMT2; on metformin twice daily as well as Ozempic every Sunday.; Patient has glucometer. He did recently switch back to Trulicity a month ago over concerns for Ozempic causing blindness (NAION) and has lost 6 kg since then. Perhaps this is contributing to his worsening brain fog over the last 2-3 weeks? He is now switching back to Ozempic as per Dr. Butler of Endocrine's phone message from 07/04 Resume outpatient diabetic medications on discharge. #Depression- Stable, bupropion #RAHUL- CPAP; is compliant with this #BPH/Urinary incontinence/OAB- Finasteride, tamsulosin Updated with discharge plans at bedside 07/06 Admission HPI Per Admitting Provider Patient is a 78-year-old male with PMHx mild cognitive impairment, T2DM, urinary incontinence, HTN, CAD, cardiomyopathy,'s PAD, systolic heart failure, dyslipidemia, RAHUL, and BPH who presents to the ED today for sudden onset of chest discomfort during his cycling class. is present in room at time of visit and helps to provide history. On the morning of arrival at 0815, the patient was at his cycling class when he developed an onset of left-sided chest pressure, describing it as gas-like in nature. Once he rested, the pain went away but lasted approximately 10 to 15 minutes. At that time he also had shortness of breath which he has been noticing more frequently over the past week. He does not have a productive cough or a lingering cough. Patient does have a significant cardiac history, but upon evaluation in ED, troponin was fou nd to be unremarkable at 9.2, and his EKG was without ischemic changes at 75 bpm. Patient states that his other concern is his ongoing brain fog and ataxia. He has been having symptoms of brain fog and ataxia for approximately 1 year, however over the past week he has noticed worsening in the symptoms. States that he usually can ambulate without assistive devices, but has been utilizing a cane for the past week given he feels off balance. Describing his brain fog as though his head is in the clouds and he just does not feel quite right. Does not have any neurological deficits, and reports that he has some weakness in his legs which he has noted because he cannot move the same amount of weight at the gym that he used to be able to. Patient has not reported any complete falls, but does find himself stumbling over the past 5 to 6 weeks which is a newer occurrence. States that he does not quite feel confused but again has "brain fog." Additional complaints of abnormalities in vision. Does follow with roller picker who, per patient report, diagnosed the patient with glaucoma and started him on eyedrops. Patient describes his vision as zigzags when he tries to look at a specific object. The drops have not helped him significantly. CT of the head reveals no acute findings per read. Does have a history of urinary incontinence secondary to an overactive bladder which he follows neurology with. Has noted that over the past week, he has been having more frequent episodes of incontinence. Patient wears depends at baseline. Has had waxing and waning constipation, but last bowel movement on the night prior to arrival and was normal per patient. Overall, patient is denying current chest pain, shortness of breath, or palpitations. Also denying abdominal pain, N/V/D/C, numbness/tingling, fever/chills, or lightheadedness/dizziness. Took all a.m. medications. Please see Dr. Gonzales's attestation for adjustments/additions to treatment plan. Discharge Exam Constitutional WD/WN, vitals as above Eyes PERRL, conjunctivae normal, anicteric sclerae Respiratory normal respiratory effort, lungs clear to auscultation Cardiovascular RRR, no murmur, no edema Psychiatric A+Ox3, euthymic affect Discharge Plan Discharge Items Patient Disposition: Home - Self-Care Reason For Visit: CARDIAC ASSESSMENT,ATAXIA Discharge Diagnosis: Chest pain Activity: Resume your previous activity Non-emergency contact: Primary Care Provider Call non-emergency contact if: you have any medication questions, your symptoms worsen and your pain is not controlled Follow-up/Referrals: Ramiro Brandon, [Primary Care Provider] - Diet: Heart Healthy Addtl Attending Provider Instructions: Mr. Figueroa, You were recently hospitalized for an episode of chest pressure you had with activity. You underwent a cardiology workup which was found to be un revealing. You were also seen by our cap jewel plate assembler who has recommended you follow further up with your outpatient cap jewel plate assembler. Please see recommendations below regarding your discharge. 1. Please resume the remainder of your outpatient medications as previously prescribed. 2. Please follow up with cardiology, neurology, and urology for your ongoing symptoms. 3. Please follow up with your PCP within 1-2 weeks of discharge. if you develop any worsening symptoms including chest pain, shortness of breath, fevers, or chills please report back to the ER for further care. Sincerely, Leora Silverman PA-C Pending Studies at Discharge: No Stand-Alone Forms: My [facility] [employer] Windows, Smoking Cessation Medications and DC Order Prescriptions: Continued multivitamin Tablet 1 tab PO QAM Qty: 0 lisinopril 10 mg tablet 10 mg PO BID Qty: 0 finasteride 5 mg tablet 5 mg PO HS Qty: 90 3RF atorvastatin 20 mg tablet 20 mg PO HS Qty: 90 3RF bupropion HCl 150 mg tablet extended release 24 hr 150 mg PO QAM Qty: 30 2RF Rx Instructions: managed by [facility] tamsulosin [Flomax] 0.4 mg capsule 0.4 mg PO HS Qty: 90 3RF metformin 500 mg tablet extended release 24 hr 500 mg PO BID Qty: 60 12RF hydrochlorothiazide 25 mg tablet 25 mg PO QAM Qty: 90 3RF semaglutide 1 mg/dose (4 mg/3 mL) pen injector 1 mg subcut Q7D Qty: 3 5RF Patient Comments: Wednesdays > last dose 10/31/23 Rx Instructions: SUNDAYS Metamucil 3.4 gram/5.4 gram powder 1 tbs PO HS bisacodyl [Dulcolax (bisacodyl)] 5 mg tablet,delayed release (DR/EC) 10 mg PO DAILY PRN (Reason: Constipation ) rivaroxaban 10 mg tablet 10 mg PO HS Qty: 90 3RF arthromax advanced 2 cap PO DAILY metoprolol succinate 25 mg tablet extended release 24 hr 25 mg PO QAM memantine 10 mg tablet 10 mg PO BID Qty: 180 2RF latanoprost 0.005 % drops 1 drp ophthalmic (eye) HS brimonidine-timolol [Combigan] 0.2-0.5 % drops 1 drp ophthalmic (eye) BID No Action (DME) FreeStyle Chris 3 [place] Misc See Rx Instructions .Route Qty: 1 0RF Rx Instructions: use to continuously monitor blood sugar (DME) FreeStyle Chris 3 Plus Sensor Device See Rx Instructions .Route Qty: 2 11RF Hold Instructions: unable to get 3 and 3 Plus sensors Rx Instructions: change sensor Q15D (DME) Dexcom G7 Sensor Device See Rx Instructions .Route Qty: 3 5RF Rx Instructions: change sensor Q10D Discharge Orders: Discharge Order (Routine); Ordered 07/06/24 Ordered By: Leora Silverman Admission Data Admit Date/Time: 07/05/24 14:40 Attending Provider: Bonilla Bond Admit Provider: Nydia Gonzales Primary Care Provider: Ramiro Brandon Other Providers: Nydia Gonzales; Lyric Li Hospital Stay Data Consultations 07/05/24 13:54 ED Decision to Admit Stat 07/05/24 14:05 ED Decision to Admit Stat 07/05/24 15:42 Consult Cardiology Routine Diagnostic Imagining Performed 07/05/24 12:07 CT head/brain wo con Stat Pending Results Patient Have Any Pending Studies at Discharge: No Discharge Instructions Given to Patient (Per Discharging Provider) Mr. Figueroa, You were recently hospitalized for an episode of chest pressure you had with activity. You underwent a cardiology workup which was found to be un revealing. You were also seen by our cap jewel plate assembler who has recommended you follow further up with your outpatient cap jewel plate assembler. Please see recommendations below regarding your discharge. 1. Please resume the remainder of your outpatient medications as previously prescribed. 2. Please follow up with cardiology, neurology, and urology for your ongoing symptoms. 3. Please follow up with your PCP within 1-2 weeks of discharge. if you develop any worsening symptoms including chest pain, shortness of breath, fevers, or chills please report back to the ER for further care. Sincerely, Leora Silverman PA-C Total Time Total Time Spent Total Time Spent (In Minutes): 40 Total Time Includes: Examination of the Patient, Discharge Planning, Medication Reconciliation and Communication With Other Providers Coding Level of Care Code 42524 INP/OBS DISCH >30 MIN Diagnoses Chest discomfort R07.89 Mild cognitive impairment of uncertain or unknown etiology G31.84
[2024-07-06 13:57] VITALS: PULSE 67
== END 2024-07-06 14:34 | disposition home or self-care (01) ==
LOC: ED 11:39 → SUATTDRO 14:40 → INTOOBSV 14:40 → EDINP 14:40 → 2W 17:34